=== PATIENT | male | born 1935 | race Hispanic/Latino ===

== ENCOUNTER 2016-12-15 10:44 | Inpatient (IN) | payer MEDICARE ==
[2016-12-15 10:45] VITALS: BMI 42.5
[2016-12-15] MEDS ORDERED: Nitroglycerin 50mg in D5W 0 MG/0 ML BOTTLE IV ONE (11:08)
[2016-12-15 11:24] LABS: BASO # 0.1 K/uL (0.0-0.2); BASO % 0.5 % (0.0-2.0); EOS # 0.2 K/uL (0.0-0.7); EOS % 1.3 % (0.0-4.0); HEMATOCRIT 36.6 % (35.0-51.0); LYMPH # 0.6 K/uL (1.0-4.3); LYMPH % 5.3 % (20.0-40.0); MEAN CORPUSCULAR HEMOGLOBIN 26.1 pg (27.0-31.0); MEAN CORPUSCULAR HGB CONC 30.8 g/dL (33.0-37.0); MEAN PLATELET VOLUME 7.5 fL (7.2-11.7); MONO # 0.7 K/uL (0.0-0.8); MONO % 6.1 % (0.0-10.0); PLATELET COUNT 217 K/uL (130-400); RED CELL DISTRIBUTION WIDTH 14.6 % (11.5-14.5); WHITE BLOOD COUNT 11.9 K/uL (4.8-10.8)
--- NOTE | 2016-12-15 11:24 | C.PDOC ---
History Of Present Illness Patient presents to ED c/o worsening SOB over the past 3-4 weeks. He denies chest pain, cough, fever, abdominal pain. He does admit to left leg cellulitis , currently on PO Augmentin. PMHx of COPD, CHF, CAD with stents, CKD. PMD Prateek Rauschjesus Piña Dejuan Time Seen by Provider: 12/15/16 10:58 Chief Complaint (Nursing): Shortness Of Breath History Per: Patient History/Exam Limitations: clinical condition Onset/Duration Of Symptoms: Days Current Symptoms Are (Timing): Still Present Past Medical History Reviewed: Historical Data, Nursing Documentation, Vital Signs Vital Signs: Last Vital Signs Temp 97.6 F 12/15/16 10:53 Pulse 70 12/15/16 14:56 Resp 18 12/15/16 14:56 BP 107/67 12/15/16 14:56 Pulse Ox 97 12/15/16 14:56 - Medical History PMH: Cardiac Aneurysm, CHF, COPD, HTN, Hypercholesterolemia, Peripheral Edema, Chronic Kidney Disease Surgical History: Coronary Stent (x2), Pacemaker - [facility] Procedures ASSISTANCE WITH RESPIRATORY VENTILATION, 24-96 HRS, CPAP (01/16/16) CATARAC PHACOEMULS/ASPIR (01/09/13) INSERT LENS AT CATAR EXT (01/09/13) Family History: States: Unknown Family Hx - Social History Hx Tobacco Use: Yes Hx Alcohol Use: No Hx Substance Use: No - Immunization History Hx Tetanus Toxoid Vaccination: No Hx Influenza Vaccination: No Hx Pneumococcal Vaccination: Yes Review Of Systems Review Of Systems: ROS cannot be obtained secondary to pt's inabilty to answer questions. Physical Exam - Physical Exam Appears: Non-toxic, In Acute Distress (in moderate respiratory distress), Other (speaking in full sentences) Skin: Normal Color, Warm, Dry Oral Mucosa: Moist Cardiovascular: Rhythm Regular Respiratory: Accessory Muscle Use (moderate), Rales (diffuse rales B/L), No Rhonchi, No Wheezing Gastrointestinal/Abdominal: Normal Exam, Bowel Sounds, Soft, No Tenderness, Other (obese) Extremity: Pedal Edema (+3 pitting edema B/L LEs), Other (left lower leg erythema and dressing ) ED Course And Treatment - Laboratory Results Result Diagrams: 12/15/16 11:15 12/15/16 11:15 ECG: Interpreted By Me, Viewed By Me (sinus ryhtm 95 bpm with first degree AV block, left axis deviation, nonspecific IV block, Qwaves II, III, aVF, V3-V6, no acute St changes) ECG Interpretation: Abnormal O2 Sat by Pulse Oximetry: 55 (RA) Pulse Ox Interpretation: Abnormal Progress Note: Patient placed on Bipap emergently. IV LAsix and SL nitro given. Blood work, EKG, CXR ordered and reviewed. 1:15pm- Spoke with meringuer Dr. Chaves, since patient is currently awake, alert, and significantly improved, he can go to telemetry floor. Patient is chronic retainer of CO2. 1:55pm- Patient aware & alert, Pox 100%, no accessory muscle us, siginificantly improved since arrival. Reevaluation Time: 12:15 Reassessment Condition: Improved (Patient reassessed, currently on BiPap, awake & alert and states he feels better. As per son at bedside, patient was in ICU last time due hypercarbia, however was not intubated (prior ABG reviewed- CO2 level 117) .) - Physician Consult Information Physician Contacted: Tiffanie Demarco Outcome Of Conversation: Admits for Dr. Shahbaz Navarro, aware of telemetry admission for CHF exacerbation, copd, dyspnea, hypercapnea. Dr. Zaidi is patient' s batch unloader, consutl entered. Disposition - Disposition Disposition: HOSPITALIZED Condition: SERIOUS Decision To Admit - Pt Status Changed To: Hospital Disposition Of: Inpatient - Admit Certification Admit to Inpatient:: After my assessment, the patient will require hospitalization for at least two midnights. This is because of the severity of symptoms shown, intensity of services needed, and/or the medical risk in this patient being treated as an outpatient. - InPatient: Physician Admission Certification: I certify that this patient requires 2 or more midnights of care for the following reason:: see notes - . Bed Request Type: Telemetry Admitting Physician: Tiffanie Demarco Patient Diagnosis: Acute exacerbation of CHF (congestive heart failure), COPD (chronic obstructive pulmonary disease), Dyspnea, Hypercapnia
[2016-12-15 11:26] LABS: MEAN CELL VOLUME 84.7 fL (80.0-94.0)
[2016-12-15 11:41] LABS: CHLORIDE 100 mmol/L (98-107); POTASSIUM 4.7 mmol/L (3.6-5.2); SODIUM 141 mmol/L (132-148)
[2016-12-15 11:43] LABS: AST/SGOT 25 U/L (17-59); BILIRUBIN,TOTAL 0.9 mg/dL (0.2-1.3); CARBON DIOXIDE 30 mmol/L (22-30); GFR AFRICAN-AMERICAN 47
[2016-12-15 11:44] LABS: ALB/GLOB RATIO 1.3 (1.0-2.1); ALKALINE PHOSPHATASE 90 U/L (38-126); ALT/SGPT 10 U/L (21-72); BLOOD UREA NITROGEN 31 mg/dL (9-20); CALCIUM 8.6 mg/dl (8.6-10.4); GLUCOSE,RANDOM 152 mg/dL (75-110)
--- NOTE | 2016-12-15 11:58 | RAD ---
HISTORY: SOB COMPARISON: Chest x-ray performed 01/20/16 TECHNIQUE: Chest, one view. FINDINGS: Examination limited by habitus and hypoinflation. Two lead left-sided pacemaker. LUNGS: Interstitial prominence may reflect infection or edema. Left basilar atelectasis. Please note that chest x-ray has limited sensitivity for the detection of pulmonary masses. PLEURA: Probable trace left pleural effusion. No definite pneumothorax . CARDIOVASCULAR: Borderline cardiomegaly. Atherosclerotic calcifications of the aorta. OSSEOUS STRUCTURES: Degenerative changes. VISUALIZED UPPER ABDOMEN: Unremarkable. OTHER FINDINGS: None. IMPRESSION: Borderline cardiomegaly. Atherosclerotic calcifications of the aorta. Dual lead left-sided pacemaker. Mild interstitial prominence may reflect infection or edema. Left basilar atelectasis. Probable trace left pleural effusion.
[2016-12-15 12:03] LABS: EOSINOPHIL 2 % (0-4); NEUTROPHIL 81 % (50-75); TOTAL CELLS COUNTED 100
[2016-12-15 12:19] LABS: RBC URINE 2 /hpf (0-3); URINE BILIRUBIN NEGATIVE (NEGATIVE); URINE BLOOD NEGATIVE (NEGATIVE); URINE COLOR Yellow (YELLOW); URINE GLUCOSE (UA) NORMAL (Normal); URINE KETONE NEGATIVE (NEGATIVE); URINE LEUKOCYTE ESTERASE NEG Leu/uL (Negative); URINE PROTEIN NEGATIVE (NEGATIVE); URINE UROBILINOGEN NORMAL mg/dL (0.2-1.0); WBC URINE 1 /hpf (0-5)
[2016-12-15 12:22] LABS: ABG ALLEN TEST POS; DRAW SITE LR
[2016-12-15] MEDS ORDERED: Albuterol-Ipratrop 3 mg / 0.5 (3 ml) UD INH STA (12:27)
[2016-12-15] MEDS ORDERED: Albuterol-Ipratrop 3 mg / 0.5 (3 ml) UD ONE (12:37)
[2016-12-15 15:51] LABS: ABG ALLEN TEST POS; ARTERIAL BLOOD HGB O2 SAT 94.3 % (95.0-98.0); CARBOXYHEMOGLOBIN 1.6 % (0.5-1.5); DRAW SITE RRADIAL; HHB 3.3 % (0.0-5.0); METHEMOGLOBIN 0.8 % (0.0-3.0)
--- NOTE | 2016-12-15 16:19 | CP.PCM.HP ---
History of Present Illness - History of Present Illness History of Present Illness: COMPREHENSIVE HISTORY & PHYSICAL EXAM HPI Last few days Pt. has been getting progressively SOB till on today Pt. was unable to breath at rest . Pt. was seen in ER in acute hypercapnia resp. failure . Pt. improved on BiPaP . ICU admission was declined . PAST HIST. CHF with n EF/ HTN/ Dual pacemaker/COPD/ chr. Edema of legs with cellulitis / CAD with 2 stents /renal insufficiency PERSONAL HIST: Smoking. N Alcohol. N Allergy N Travel_- . FAMILY HIST : ROS : Constitutional: Negative for weight change, chills POS SOB AND FATIDUE Eyes: Negative for redness, swelling, itching, discharge, vision changes, blurry vision, double vision, glaucoma, cataracts, Ears: Negative for hearing loss, ringing, , tinnitus, vertigo Nose: Negative for rhinorrhea, stuffiness, sniffing, itching, postnasal drip, discoloration, nasal congestion and epistaxis. Throat: Negative for throat clearing, sore throat, hoarseness, difficulty swallowing and difficulty speaking. RespiratoryPOS for cough, , sputum production, chest tightness, wheezing, pleuritic chest pain , daytime somnolence, chronic cough, NO hemoptysis, snoring at night, Cardiovascular: Negative for chest pain, palpitations, orthopnea, PND, Edema of legs, leg cramps, angina, claudication, , irregular heartbeat, Neurology: Negative for irritability, muscle weakness, numbness and tingling, seizures, tremors, migraines, slurred speech, syncope, memory loss, mood changes , recurrent headaches Gastrointestinal: Negative for difficulty swallowing, diarrhea, constipation, black stools, rectal bleeding, nausea, flatulence, reflux, poor appetite, changes in bowel habits, abdominal pain Genitourinary: Negative for frequent urination, hematuria, discharge, incontinence, urinary retention, frequent UTI, Psychiatric: Negative for depression, anxiety/panic, suicidal tendencies, Musculoskeletal: Negative for swollen joints, back pain, , neck pain, morning stiffness of joints, . Skin: INFLAMMATION OF LOWER EXT SKIN WITH EDEMA P/E: Constitutional: Appears stated age and SOB AT REST Head: Normocephalic. Ears: External ear canals patent without inflammation. Tympanic membranes intact with normal light reflex and landmark. Eyes: Pupils are central, bilaterally equal, symmetrical and reacts to light with normal movements and no icterus or pallor. Nose: External nares are patent. Mucosa is pink Mouth-Throat: Good general appearance and condition. No post-pharyngeal/oropharyngeal erythema and tonsillar hypertrophy. Good dental hygiene. Neck-Lymphatic: Neck is supple with normal ROM, no thyromegaly, lymph nodes or masses. JVD is normal with no carotid bruit. Lungs SILVIO POOR AIR ENTRY WITH RALES Cardiovascular: S1 and S2 are normal with no murmurs, gallops and rub. GI Exam: No hepatomegaly. Abdomen is soft and non-tender. No Organomegaly , masses or hernias are evident and bowel sounds are normal and active. Neurology: Higher function and all cranial nerves intact, with no gross motor or sensory deficit. Superficial and deep reflexes are normal with downwards planters. No cerebellar deficit with normal gait. Musculoskeletal: No tender spots with normal curvature of the spine with no swelling or restricted ROM of the small and large joints. Extremities: SILVIO CHR. EDEMA WITH SUP. DENUDATION OF SKIN WITH CELLULITIS Skin: No rash, eruptions or abnormal skin pigmentation LAB/RADIOLOGY: ASSESMENT : ACUTE HYPERCAPNIC RESP. FAILURE ON BIPAP HFnEF DIASTOLIC CAD/COPD/ CELLULITIS LEGS PLAN: SEE ORDERS Present on Admission - Present on Admission Any Indicators Present on Admission: No Past Patient History - Infectious Disease Hx of Infectious Diseases: None - Past Medical History & Family History Past Medical History?: Yes - Past Social History Smoking Status: Former Smoker - CARDIAC Hx Congestive Heart Failure: Yes Hx Hypercholesterolemia: Yes Hx Hypertension: Yes Hx Pacemaker: Yes Hx Peripheral Edema: Yes - PULMONARY Hx Chronic Obstructive Pulmonary Disease (COPD): Yes - RENAL Hx Chronic Kidney Disease: Yes - MUSCULOSKELETAL/RHEUMATOLOGICAL Hx Falls: Yes Hx Unsteady Gait: Yes - PSYCHIATRIC Hx Substance Use: No - SURGICAL HISTORY Hx Coronary Stent: Yes (x2) - ANESTHESIA Hx Anesthesia: Yes Hx Anesthesia Reactions: No Meds Allergies/Adverse Reactions: Allergies Allergy/AdvReac Type Severity Reaction Status Date / Time No Known Allergies Allergy Verified 12/15/16 11:14 Results - Vital Signs Recent Vital Signs: Last Vital Signs Temp 97.6 F 12/15/16 10:53 Pulse 70 12/15/16 14:56 Resp 18 12/15/16 14:56 BP 107/67 12/15/16 14:56 Pulse Ox 97 12/15/16 14:56 - Labs Result Diagrams: 12/16/16 08:50 12/16/16 08:50 Labs: Laboratory Results - last 24 hr 12/15/16 15:40 Puncture Site Rradial pCO2 84 H* pO2 92 HCO3 32.8 H ABG pH 7.28 L ABG Total CO2 42.1 H ABG O2 Saturation 96.6 ABG Base Excess 10.1 H ABG Hemoglobin 10.9 L ABG Carboxyhemoglobin 1.6 H POC ABG HHb (Measured) 3.3 ABG Methemoglobin 0.8 Froylan Test Pos A-a O2 Difference 516.0 Respiratory Index 5.6 Hgb O2 Saturation 94.3 L FiO2 100.0 Inspiratory BiPAP 16 Expiratory BiPAP 6 Crit Value Called To Dr. cecilia md/er Crit Value Called By Shiloh kat rcp Crit Value Read Back Y Blood Gas Notified Time 1550
[2016-12-15] MEDS: Albuterol-Ipratrop 3 mg / 0.5 (3 ml) UD INH SCH (19:37)
[2016-12-16] MEDS: Albuterol-Ipratrop 3 mg / 0.5 (3 ml) UD INH SCH ×4 (01:37→20:02)
[2016-12-16 09:11] LABS: LYMPH # 0.5 K/uL (1.0-4.3); LYMPH % 3.8 % (20.0-40.0); MEAN CORPUSCULAR HEMOGLOBIN 26.1 pg (27.0-31.0); MEAN CORPUSCULAR HGB CONC 31.5 g/dL (33.0-37.0); MEAN PLATELET VOLUME 7.5 fL (7.2-11.7); MONO # 0.5 K/uL (0.0-0.8); MONO % 3.5 % (0.0-10.0); NRBC % 0.1 % (0.0-2.0); PLATELET COUNT 235 K/uL (130-400); RED CELL DISTRIBUTION WIDTH 14.2 % (11.5-14.5); WHITE BLOOD COUNT 13.3 K/uL (4.8-10.8)
[2016-12-16 09:12] LABS: MEAN CELL VOLUME 82.7 fL (80.0-94.0)
[2016-12-16] MEDS: Pantoprazole 40 mg EC Tab PO SCH (09:19)
[2016-12-16 09:26] LABS: POTASSIUM 4.9 mmol/L (3.6-5.2)
[2016-12-16 09:28] LABS: BILIRUBIN,TOTAL 0.6 mg/dL (0.2-1.3)
[2016-12-16 09:29] LABS: ALB/GLOB RATIO 1.3 (1.0-2.1); CALCIUM 8.5 mg/dl (8.6-10.4); TOTAL PROTEIN 6.6 g/dL (6.3-8.3)
[2016-12-16 10:10] LABS: NEUTROPHIL 89 % (50-75); TOTAL CELLS COUNTED 100
--- NOTE | 2016-12-16 18:10 | CP.PCM.CON ---
History of Present Illness - History of Present Illness History of Present Illness: INFECTIOUS DISEASE CONSULT; HPI : 81-year-old male with history off COPD, CHF, hypertension, CAD with 2 stents, DUAL chamber pacemaker, admitted by the emergency room on 12/15/16 with progressive shortness of breath over the past 3-4 weeks and in acute hypercapnic respiratory failure, improved on BiPAP. ICU admission was declining patient transferred to the floor. Patient also has history of bilateral lower extremity edema with cellulitis and Unna boot on the left lower extremity placed as an outpatient by his client services analyst Dr. Morrell. Patient presently on nasal cannula oxygen with bilateral swelling of his lower extremities. Infectious disease consultation requested by PMD for evaluation off antibiotics for blood culture positive for gram-positive cocci in clusters and his lower extremity persistent cellulitis not resolving with outpatient by mouth Augmentin therapy given by his client services analyst. PMH: Cardiac Aneurysm, CHF, COPD, HTN, Hypercholesterolemia, Peripheral Edema, Chronic Kidney Disease Surgical History: Coronary Stent (x2), Pacemaker - [facility] Procedures ASSISTANCE WITH RESPIRATORY VENTILATION, 24-96 HRS, CPAP (01/16/16) CATARAC PHACOEMULS/ASPIR (01/09/13) INSERT LENS AT CATAR EXT (01/09/13) Family History: States: Unknown Family Hx - Social History Hx Tobacco Use: Yes Hx Alcohol Use: No Hx Substance Use: No - Immunization History Hx Tetanus Toxoid Vaccination: No Hx Influenza Vaccination: No Hx Pneumococcal Vaccination: Yes PMD Anthony Navarro Review of Systems - Constitutional Constitutional: absent: Chills, Fever - EENT Eyes: absent: Change in Vision, Floaters Nose/Mouth/Throat: Dry Mouth. absent: Post Nasal Drip - Cardiovascular Cardiovascular: Dyspnea on Exertion, Leg Edema, Leg Ulcers. absent: Chest Pain - Respiratory Respiratory: Dyspnea on Exertion. absent: Cough, Hemoptysis - Gastrointestinal Gastrointestinal: absent: Abdominal Pain, Constipation, Diarrhea, Nausea, Vomiting - Genitourinary Genitourinary: absent: Dysuria - Neurological Neurological: absent: Dizziness, Weakness - Hematologic/Lymphatic Hematologic: As Per HPI Past Patient History - Infectious Disease Hx of Infectious Diseases: None - Past Medical History & Family History Past Medical History?: Yes - Past Social History Smoking Status: Former Smoker - CARDIAC Hx Congestive Heart Failure: Yes Hx Hypercholesterolemia: Yes Hx Hypertension: Yes Hx Pacemaker: Yes Hx Peripheral Edema: Yes - PULMONARY Hx Chronic Obstructive Pulmonary Disease (COPD): Yes - RENAL Hx Chronic Kidney Disease: Yes - MUSCULOSKELETAL/RHEUMATOLOGICAL Hx Falls: Yes Hx Unsteady Gait: Yes - PSYCHIATRIC Hx Substance Use: No - SURGICAL HISTORY Hx Coronary Stent: Yes (x2) - ANESTHESIA Hx Anesthesia: Yes Hx Anesthesia Reactions: No Meds Allergies/Adverse Reactions: Allergies Allergy/AdvReac Type Severity Reaction Status Date / Time No Known Allergies Allergy Verified 12/15/16 11:14 - Medications Medications: Current Medications Albuterol/Ipratropium (Duoneb 3 Mg/0.5 Mg (3 Ml) Ud) 3 ml INH RQ6 [facility] Last Admin: 12/16/16 13:41 Dose: 3 ml Amlodipine Besylate (Norvasc) 5 mg PO DAILY [facility] Last Admin: 12/16/16 09:19 Dose: 5 mg Clopidogrel Bisulfate (Plavix) 75 mg PO DAILY [facility] Last Admin: 12/16/16 09:19 Dose: 75 mg Furosemide (Lasix) 40 mg IVP DAILY [facility] Last Admin: 12/16/16 09:19 Dose: 40 mg Heparin Sodium (Porcine) (Heparin) 5,000 units SC Q12 [facility] Methylprednisolone (Solu-Medrol) 60 mg IV Q6 [facility] Last Admin: 12/16/16 15:04 Dose: 60 mg Pantoprazole Sodium (Protonix Ec Tab) 40 mg PO DAILY [facility] Last Admin: 12/16/16 09:19 Dose: 40 mg Roflumilast (Daliresp) 500 mcg PO DAILY [facility] Last Admin: 12/16/16 09:53 Dose: 500 mcg Rosuvastatin Calcium (Crestor) 10 mg PO HS [facility] Last Admin: 12/15/16 21:46 Dose: 10 mg Tramadol HCl (Ultram) 50 mg PO TID PRN Last Admin: 12/16/16 15:14 Dose: 50 mg Results - Vital Signs Recent Vital Signs: Last Vital Signs Temp 98.0 F 12/16/16 15:20 Pulse 79 12/16/16 15:20 Resp 20 12/16/16 15:20 BP 122/61 12/16/16 15:20 Pulse Ox 93 L 12/16/16 15:20 - Labs Result Diagrams: 12/17/16 08:22 12/17/16 08:22 Labs: Laboratory Results - last 24 hr 12/15/16 12/16/16 12/16/16 17:52 00:34 08:50 WBC 13.3 H RBC 4.11 L Hgb 10.7 L Hct 34.0 L MCV 82.7 D MCH 26.1 L MCHC 31.5 L RDW 14.2 Plt Count 235 MPV 7.5 Neut % (Auto) 92.7 H Lymph % (Auto) 3.8 L Ashley % (Auto) 3.5 Eos % (Auto) 0.0 Baso % (Auto) 0.0 Neut # 12.4 H Lymph # 0.5 L Ashley # 0.5 Eos # 0.0 Baso # 0.0 Neutrophils % (Manual) 89 H Band Neutrophils % 2 Lymphocytes % (Manual) 6 L Monocytes % (Manual) 3 Toxic Granulation Present Platelet Estimate Normal Polychromasia Slight Hypochromasia (manual) Slight Poikilocytosis (manual Slight Anisocytosis (manual) Slight Ovalocytes Slight Sodium Potassium Chloride Carbon Dioxide Anion Gap BUN Creatinine Est GFR ( Amer) Est GFR (Non-Af Amer) Random Glucose Calcium Total Bilirubin AST ALT Alkaline Phosphatase Total Creatine Kinase 30 L 34 L CK-MB (Mass) 1.33 1.14 Troponin I, Quant < 0.0120 < 0.0120 Total Protein Albumin Globulin Albumin/Globulin Ratio 12/16/16 12/16/16 08:50 08:50 WBC RBC Hgb Hct MCV MCH MCHC RDW Plt Count MPV Neut % (Auto) Lymph % (Auto) Ashley % (Auto) Eos % (Auto) Baso % (Auto) Neut # Lymph # Ashley # Eos # Baso # Neutrophils % (Manual) Band Neutrophils % Lymphocytes % (Manual) Monocytes % (Manual) Toxic Granulation Platelet Estimate Polychromasia Hypochromasia (manual) Poikilocytosis (manual Anisocytosis (manual) Ovalocytes Sodium 141 Potassium 4.9 Chloride 96 L Carbon Dioxide 34 H Anion Gap 16 BUN 36 H Creatinine 1.7 H Est GFR ( Amer) 47 Est GFR (Non-Af Amer) 39 Random Glucose 146 H Calcium 8.5 L Total Bilirubin 0.6 AST 17 D ALT 21 D Alkaline Phosphatase 81 Total Creatine Kinase 36 L CK-MB (Mass) 1.22 Troponin I, Quant < 0.0120 Total Protein 6.6 Albumin 3.8 Globulin 2.8 Albumin/Globulin Ratio 1.3 - Imaging and Cardiology Chest x-ray Status: Report reviewed by me (12/15/16; left basilar atelectasis. Interstitial prominence and infection versus edema. Trace left pleural effusion. Dual-lead left-sided pacemaker.) Assessment & Plan (1) Gram-positive cocci in clusters Assessment and Plan: blood cultures 12/15/16 1;2 sets gram-positive cocci in clusters real vs contaminant. WBC 13.3 Creatinine 1.7/BUN 36 Plan ; Start Rocephin 2 g IV piggyback once a day daily 12/15/16 Follow-up cultures to adjust antibiotics. WILL HOLD OFF NEPHROTOXIC MEDS. Status: Acute (2) Bilateral cellulitis of lower leg Assessment and Plan: ON IV ABX LT LE HAS UNNA BOOT PER DR MORRELL. Status: Acute (3) Acute exacerbation of CHF (congestive heart failure) Status: Acute (4) COPD (chronic obstructive pulmonary disease) Status: Chronic (5) Hypercholesteremia Status: Acute (6) Hypertension Status: Chronic (7) CAD (coronary artery disease) Status: Acute
[2016-12-16] MEDS: cefTRIAXone 2 GM in Sodium Chloride 0.9% 100 ML IVPB SCH (21:17)
[2016-12-17] MEDS: Albuterol-Ipratrop 3 mg / 0.5 (3 ml) UD INH SCH ×4 (01:40→19:36)
[2016-12-17 08:40] LABS: BASO % 0.1 % (0.0-2.0); LYMPH # 0.3 K/uL (1.0-4.3); MEAN CELL VOLUME 82.3 fL (80.0-94.0); MEAN CORPUSCULAR HEMOGLOBIN 25.7 pg (27.0-31.0); MEAN CORPUSCULAR HGB CONC 31.3 g/dL (33.0-37.0); MEAN PLATELET VOLUME 7.7 fL (7.2-11.7); MONO # 0.2 K/uL (0.0-0.8); MONO % 1.3 % (0.0-10.0); PLATELET COUNT 242 K/uL (130-400); RED CELL DISTRIBUTION WIDTH 14.6 % (11.5-14.5); WHITE BLOOD COUNT 11.6 K/uL (4.8-10.8)
[2016-12-17 08:55] LABS: POTASSIUM 4.9 mmol/L (3.6-5.2)
[2016-12-17 08:57] LABS: ALB/GLOB RATIO 1.4 (1.0-2.1); BILIRUBIN,DIRECT 0.5 mg/dL (0.0-0.4); BILIRUBIN,TOTAL 0.6 mg/dL (0.2-1.3); TOTAL PROTEIN 6.4 g/dL (6.3-8.3)
[2016-12-17 08:58] LABS: CALCIUM 8.4 mg/dl (8.6-10.4)
[2016-12-17 09:19] LABS: NEUTROPHIL 94 % (50-75); TOTAL CELLS COUNTED 100
[2016-12-17 09:23] LABS: LARGE PLATELETS PRESENT
[2016-12-17] MEDS: Pantoprazole 40 mg EC Tab PO SCH (09:43)
[2016-12-17 09:47] LABS: ERYTHROCYTE SEDIMENTATION RATE 28 mm/hr (0-15)
--- NOTE | 2016-12-17 14:33 | CP.PCM.PN ---
Subjective - Date & Time of Evaluation Date of Evaluation: 12/17/16 Time of Evaluation: 14:29 - Subjective Subjective: CHIEF COMPLAINTS TODAY : LESS SOB/WHEEZING SWELLING LEGS ROS. HEENT : N. Resp : MILD cough, wheezing ,pleuritic CP , NO hemoptysis Cardio : No anginal CP, PND, orthopnea, palpitation GI : No abd.pain, n/v ,diarrhea or GI bleeding . LAY OUT AND DETAIL DRAFTER : No headache, vertigo, focal deficit. Musculoskel : No joint swelling , Derm : No rash Psych : Normal affect. Ext : POS SWELLING /INFLAMMATION PE. Pt. is alert awake in no distress. V.S As noted in the chart Head ,ear nose,throat and eyes : Normal. Neck : Supple with normal carotids. Lungs: POOR AIR ENTRY WITH SCATTERED RONCHI Heart : S1 & S2 normal with S4. No murmur. Abd : Soft non tender with normal bowel sounds. Neuro : Moves all ext. with no localized deficit. Ext : SILVIO EDEMA MODERATE WITH SUP SKIN EXCORIATION Derm : No rashes or decubitus ulcer. LABS/RADIOLOGY: [facility] NEG ASSESSMENT/PLAN : IV LASIX/AB BIPAP Objective - Vital Signs/Intake and Output Vital Signs (last 24 hours): Temp Pulse Resp BP Pulse Ox 98 F 74 20 126/71 95 12/17/16 07:00 12/17/16 07:00 12/17/16 07:00 12/17/16 09:43 12/17/16 07:00 Intake and Output: 12/17/16 12/17/16 11:59 23:59 Intake Total 240 Output Total 425 Balance -185 - Medications Medications: Current Medications Albuterol/Ipratropium (Duoneb 3 Mg/0.5 Mg (3 Ml) Ud) 3 ml INH RQ6 [facility] Last Admin: 12/17/16 14:02 Dose: 3 ml Amlodipine Besylate (Norvasc) 5 mg PO DAILY [facility] Last Admin: 12/17/16 09:42 Dose: 5 mg Clopidogrel Bisulfate (Plavix) 75 mg PO DAILY [facility] Last Admin: 12/17/16 09:43 Dose: 75 mg Furosemide (Lasix) 40 mg IVP DAILY [facility] Last Admin: 12/17/16 09:43 Dose: 40 mg Heparin Sodium (Porcine) (Heparin) 5,000 units SC Q12 [facility] Last Admin: 12/17/16 09:45 Dose: 5,000 units Ceftriaxone Sodium 2 gm/ (Sodium Chloride) 100 mls @ 100 mls/hr IVPB Q24H [facility] Last Admin: 12/16/16 21:17 Dose: 100 mls/hr Methylprednisolone (Solu-Medrol) 60 mg IV Q6 [facility] Last Admin: 12/17/16 06:14 Dose: 60 mg Pantoprazole Sodium (Protonix Ec Tab) 40 mg PO DAILY [facility] Last Admin: 12/17/16 09:43 Dose: 40 mg Roflumilast (Daliresp) 500 mcg PO DAILY [facility] Last Admin: 12/17/16 09:45 Dose: 500 mcg Rosuvastatin Calcium (Crestor) 10 mg PO HS [facility] Last Admin: 12/16/16 21:16 Dose: 10 mg Tramadol HCl (Ultram) 50 mg PO TID PRN Last Admin: 12/17/16 09:39 Dose: 50 mg - Labs Labs: 12/17/16 08:22 12/17/16 08:22 PT 11.8 SECONDS (9.7-12.2) 12/15/16 11:15 INR 1.0 12/15/16 11:15 APTT 32 SECONDS (21-34) 12/15/16 11:15
--- NOTE | 2016-12-17 16:56 | CP.PCM.PN ---
Subjective - Date & Time of Evaluation Date of Evaluation: 12/17/16 Time of Evaluation: 16:56 - Subjective Subjective: CHIEF COMPLAINTS TODAY less SOB BILATERAL SWELLING LE LT LE +VE UNNA BOOT ROS. HEENT : N. Resp : MILD cough, wheezing ,pleuritic CP , NO hemoptysis Cardio : No anginal CP, PND, orthopnea, palpitation GI : No abd.pain, n/v ,diarrhea or GI bleeding . AIRCRAFT SYSTEMS TECHNICIAN : No headache, vertigo, focal deficit. Musculoskel : No joint swelling , Derm : No rash Psych : Normal affect. Ext : POS SWELLING /INFLAMMATION PE. Pt. is alert awake in no distress. V.S As noted in the chart Head ,ear nose,throat and eyes : Normal. Neck : Supple with normal carotids. Lungs: POOR AIR ENTRY WITH SCATTERED RONCHI Heart : S1 & S2 normal with S4. No murmur. Abd : Soft non tender with normal bowel sounds. Neuro : Moves all ext. with no localized deficit. Ext : SILVIO EDEMA LE WITH SUP SKIN EXCORIATION AND CELLULITUS Derm : No rashes or decubitus ulcer. LABS/RADIOLOGY: 12/15/16 BLOOD CULTURE +VE SCN/GNR WBC 11.6 Objective - Vital Signs/Intake and Output Vital Signs (last 24 hours): Temp Pulse Resp BP Pulse Ox 98 F 74 20 126/71 95 12/17/16 07:00 12/17/16 07:00 12/17/16 07:00 12/17/16 09:43 12/17/16 07:00 Intake and Output: 12/17/16 12/17/16 06:59 18:59 Intake Total 540 Output Total 925 Balance -385 - Medications Medications: Current Medications Albuterol/Ipratropium (Duoneb 3 Mg/0.5 Mg (3 Ml) Ud) 3 ml INH RQ6 [facility] Last Admin: 12/17/16 14:02 Dose: 3 ml Amlodipine Besylate (Norvasc) 5 mg PO DAILY [facility] Last Admin: 12/17/16 09:42 Dose: 5 mg Clopidogrel Bisulfate (Plavix) 75 mg PO DAILY [facility] Last Admin: 12/17/16 09:43 Dose: 75 mg Furosemide (Lasix) 40 mg IVP DAILY [facility] Last Admin: 12/17/16 09:43 Dose: 40 mg Heparin Sodium (Porcine) (Heparin) 5,000 units SC Q12 [facility] Last Admin: 12/17/16 09:45 Dose: 5,000 units Ceftriaxone Sodium 2 gm/ (Sodium Chloride) 100 mls @ 100 mls/hr IVPB Q24H [facility] Last Admin: 12/16/16 21:17 Dose: 100 mls/hr Methylprednisolone (Solu-Medrol) 60 mg IV Q6 [facility] Last Admin: 12/17/16 06:14 Dose: 60 mg Pantoprazole Sodium (Protonix Ec Tab) 40 mg PO DAILY [facility] Last Admin: 12/17/16 09:43 Dose: 40 mg Roflumilast (Daliresp) 500 mcg PO DAILY [facility] Last Admin: 12/17/16 09:45 Dose: 500 mcg Rosuvastatin Calcium (Crestor) 10 mg PO HS [facility] Last Admin: 12/16/16 21:16 Dose: 10 mg Tramadol HCl (Ultram) 50 mg PO TID PRN Last Admin: 12/17/16 09:39 Dose: 50 mg - Labs Labs: 12/17/16 08:22 12/17/16 08:22 PT 11.8 SECONDS (9.7-12.2) 12/15/16 11:15 INR 1.0 12/15/16 11:15 APTT 32 SECONDS (21-34) 12/15/16 11:15 Assessment and Plan (1) Gram-positive cocci in clusters Assessment & Plan: blood cultures 12/15/16 1;2 sets gram-positive cocci in clusters /GNR real vs contaminant. WBC IMPROVING Creatinine 1.7/BUN 36 Plan ; ON Rocephin 2 g IV piggyback once a day daily 12/15/16 Follow-up cultures to adjust antibiotics. Status: Acute (2) Bilateral cellulitis of lower leg Assessment & Plan: ON IV ABX LT LE HAS UNNA BOOT PER DR [place]. Status: Acute (3) Acute exacerbation of CHF (congestive heart failure) Status: Acute (4) COPD (chronic obstructive pulmonary disease) Status: Chronic (5) Hypercholesteremia Status: Acute (6) Hypertension Status: Chronic (7) CAD (coronary artery disease) Status: Acute
[2016-12-17] MEDS: cefTRIAXone 2 GM in Sodium Chloride 0.9% 100 ML IVPB SCH (19:01)
[2016-12-18] MEDS: Albuterol-Ipratrop 3 mg / 0.5 (3 ml) UD INH SCH ×4 (01:45→19:32)
[2016-12-18 06:32] LABS: HEMATOCRIT 36.1 % (35.0-51.0); LYMPH # 0.4 K/uL (1.0-4.3); LYMPH % 2.9 % (20.0-40.0); MEAN CELL VOLUME 82.2 fL (80.0-94.0); MEAN CORPUSCULAR HEMOGLOBIN 25.5 pg (27.0-31.0); MEAN CORPUSCULAR HGB CONC 31.1 g/dL (33.0-37.0); MEAN PLATELET VOLUME 7.7 fL (7.2-11.7); MONO # 0.3 K/uL (0.0-0.8); MONO % 2.6 % (0.0-10.0); NRBC % 0.1 % (0.0-2.0); PLATELET COUNT 277 K/uL (130-400); WHITE BLOOD COUNT 12.3 K/uL (4.8-10.8)
[2016-12-18 06:57] LABS: POTASSIUM 4.7 mmol/L (3.6-5.2)
[2016-12-18 07:00] LABS: ALB/GLOB RATIO 1.3 (1.0-2.1); BILIRUBIN,TOTAL 0.4 mg/dL (0.2-1.3); TOTAL PROTEIN 6.6 g/dL (6.3-8.3)
[2016-12-18 07:01] LABS: CALCIUM 8.3 mg/dl (8.6-10.4)
[2016-12-18 09:18] LABS: NEUTROPHIL 95 % (50-75); TOTAL CELLS COUNTED 100
[2016-12-18] MEDS: Pantoprazole 40 mg EC Tab PO SCH (09:43)
--- NOTE | 2016-12-18 12:48 | CP.PCM.PN ---
Subjective - Date & Time of Evaluation Date of Evaluation: 12/18/16 Time of Evaluation: 12:48 - Subjective Subjective: CHIEF COMPLAINTS TODAY : LESS SOB/WHEEZING SWELLING LEGS BUN RISING ROS. HEENT : N. Resp : MILD cough, wheezing ,pleuritic CP , NO hemoptysis Cardio : No anginal CP, PND, orthopnea, palpitation GI : No abd.pain, n/v ,diarrhea or GI bleeding . 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 Musculoskel : No joint swelling , Derm : No rash Psych : Normal affect. Ext : POS SWELLING /INFLAMMATION PE. Pt. is alert awake in no distress. V.S As noted in the chart Head ,ear nose,throat and eyes : Normal. Neck : Supple with normal carotids. Lungs: POOR AIR ENTRY WITH SCATTERED RONCHI Heart : S1 & S2 normal with S4. No murmur. Abd : Soft non tender with normal bowel sounds. Neuro : Moves all ext. with no localized deficit. Ext : SILVIO EDEMA MODERATE WITH SUP SKIN EXCORIATION Derm : No rashes or decubitus ulcer. LABS/RADIOLOGY: [facility] A[facility] NEG ASSESSMENT/PLAN : IV LASIX REDUCE DOSE BIPAP Objective - Vital Signs/Intake and Output Vital Signs (last 24 hours): Temp Pulse Resp BP Pulse Ox 98.1 F 73 20 157/87 H 93 L 12/18/16 07:37 12/18/16 07:37 12/18/16 07:37 12/18/16 09:43 12/18/16 07:37 Intake and Output: 12/18/16 12/18/16 11:59 23:59 Intake Total 360 Output Total 650 Balance -290 - Medications Medications: Current Medications Albuterol/Ipratropium (Duoneb 3 Mg/0.5 Mg (3 Ml) Ud) 3 ml INH RQ6 [facility] Last Admin: 12/18/16 10:23 Dose: 3 ml Amlodipine Besylate (Norvasc) 5 mg PO DAILY [facility] Last Admin: 12/18/16 09:44 Dose: 5 mg Clopidogrel Bisulfate (Plavix) 75 mg PO DAILY [facility] Last Admin: 12/18/16 09:44 Dose: 75 mg Furosemide (Lasix) 40 mg IVP DAILY [facility] Last Admin: 12/18/16 09:43 Dose: 40 mg Heparin Sodium (Porcine) (Heparin) 5,000 units SC Q12 [facility] Last Admin: 12/18/16 09:43 Dose: 5,000 units Ceftriaxone Sodium 2 gm/ (Sodium Chloride) 100 mls @ 100 mls/hr IVPB Q24H [facility] Last Admin: 12/17/16 19:01 Dose: 100 mls/hr Methylprednisolone (Solu-Medrol) 60 mg IV Q6 [facility] Last Admin: 12/18/16 05:29 Dose: 60 mg Pantoprazole Sodium (Protonix Ec Tab) 40 mg PO DAILY [facility] Last Admin: 12/18/16 09:43 Dose: 40 mg Roflumilast (Daliresp) 500 mcg PO DAILY [facility] Last Admin: 12/18/16 09:44 Dose: 500 mcg Rosuvastatin Calcium (Crestor) 10 mg PO HS [facility] Last Admin: 12/17/16 21:47 Dose: 10 mg Tramadol HCl (Ultram) 50 mg PO TID PRN Last Admin: 12/17/16 09:39 Dose: 50 mg - Labs Labs: 12/18/16 06:19 12/18/16 06:19 PT 11.8 SECONDS (9.7-12.2) 12/15/16 11:15 INR 1.0 12/15/16 11:15 APTT 32 SECONDS (21-34) 12/15/16 11:15
--- NOTE | 2016-12-18 12:53 | CP.PCM.CON ---
History of Present Illness - History of Present Illness History of Present Illness: 81 year old pt seen at bedside for wound left ankle chronic in nature .Patient was insructed 3 weeks ago to go to hospital for treatment however he declined .His condition worsened and he developed a variety of symptoms and was convinced by son and myself to seek care at hospital on Sunday . Review of Systems - Cardiovascular Cardiovascular: Edema, Leg Edema, Pedal Edema - Respiratory Respiratory: Snoring - Gastrointestinal Gastrointestinal: As Per HPI - Integumentary Integumentary: Change in Nails, Change in Pigmentation, Skin Ulcer, Swelling, Wounds - Neurological Neurological: Paresthesias, Radicular Pain Past Patient History - Infectious Disease Hx of Infectious Diseases: None - Past Medical History & Family History Past Medical History?: Yes - Past Social History Smoking Status: Former Smoker - CARDIAC Hx Congestive Heart Failure: Yes Hx Hypercholesterolemia: Yes Hx Hypertension: Yes Hx Pacemaker: Yes Hx Peripheral Edema: Yes - PULMONARY Hx Chronic Obstructive Pulmonary Disease (COPD): Yes - RENAL Hx Chronic Kidney Disease: Yes - MUSCULOSKELETAL/RHEUMATOLOGICAL Hx Falls: Yes Hx Unsteady Gait: Yes - PSYCHIATRIC Hx Substance Use: No - SURGICAL HISTORY Hx Coronary Stent: Yes (x2) - ANESTHESIA Hx Anesthesia: Yes Hx Anesthesia Reactions: No Meds Allergies/Adverse Reactions: Allergies Allergy/AdvReac Type Severity Reaction Status Date / Time No Known Allergies Allergy Verified 12/15/16 11:14 - Medications Medications: Current Medications Albuterol/Ipratropium (Duoneb 3 Mg/0.5 Mg (3 Ml) Ud) 3 ml INH RQ6 [facility] Last Admin: 12/18/16 10:23 Dose: 3 ml Amlodipine Besylate (Norvasc) 5 mg PO DAILY [facility] Last Admin: 12/18/16 09:44 Dose: 5 mg Clopidogrel Bisulfate (Plavix) 75 mg PO DAILY [facility] Last Admin: 12/18/16 09:44 Dose: 75 mg Furosemide (Lasix) 40 mg IVP DAILY [facility] Last Admin: 12/18/16 09:43 Dose: 40 mg Heparin Sodium (Porcine) (Heparin) 5,000 units SC Q12 [facility] Last Admin: 12/18/16 09:43 Dose: 5,000 units Ceftriaxone Sodium 2 gm/ (Sodium Chloride) 100 mls @ 100 mls/hr IVPB Q24H [facility] Last Admin: 12/17/16 19:01 Dose: 100 mls/hr Methylprednisolone (Solu-Medrol) 60 mg IV Q6 [facility] Last Admin: 12/18/16 05:29 Dose: 60 mg Pantoprazole Sodium (Protonix Ec Tab) 40 mg PO DAILY [facility] Last Admin: 12/18/16 09:43 Dose: 40 mg Roflumilast (Daliresp) 500 mcg PO DAILY [facility] Last Admin: 12/18/16 09:44 Dose: 500 mcg Rosuvastatin Calcium (Crestor) 10 mg PO HS [facility] Last Admin: 12/17/16 21:47 Dose: 10 mg Tramadol HCl (Ultram) 50 mg PO TID PRN Last Admin: 12/17/16 09:39 Dose: 50 mg Physical Exam - Extremities Exam Additional comments: O/Venous ulcer left ankle improved with control of CHF .Cellulitis improved. Vascular status grossly intact b/l . Neuro intact grossly . 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 Serous drainage from wound left ankle . Results - Vital Signs Recent Vital Signs: Last Vital Signs Temp 98.1 F 12/18/16 07:37 Pulse 73 12/18/16 07:37 Resp 20 12/18/16 07:37 BP 157/87 H 12/18/16 09:43 Pulse Ox 93 L 12/18/16 07:37 - Labs Result Diagrams: 12/18/16 06:19 12/18/16 06:19 Labs: Laboratory Results - last 24 hr 12/18/16 12/18/16 06:19 06:19 WBC 12.3 H RBC 4.39 L Hgb 11.2 L Hct 36.1 MCV 82.2 MCH 25.5 L MCHC 31.1 L RDW 15.0 H Plt Count 277 MPV 7.7 Neut % (Auto) 94.5 H Lymph % (Auto) 2.9 L Woodruff % (Auto) 2.6 Eos % (Auto) 0.0 Baso % (Auto) 0.0 Neut # 11.7 H Lymph # 0.4 L Woodruff # 0.3 Eos # 0.0 Baso # 0.0 Neutrophils % (Manual) 95 H Lymphocytes % (Manual) 2 L Monocytes % (Manual) 3 Platelet Estimate Normal Hypochromasia (manual) Slight Poikilocytosis (manual Slight Anisocytosis (manual) Slight Sodium 136 Potassium 4.7 Chloride 92 L Carbon Dioxide 34 H Anion Gap 15 BUN 55 H Creatinine 1.7 H Est GFR ( Amer) 47 Est GFR (Non-Af Amer) 39 Random Glucose 174 H Calcium 8.3 L Total Bilirubin 0.4 AST 26 ALT 22 Alkaline Phosphatase 70 Total Protein 6.6 Albumin 3.7 Globulin 2.9 Albumin/Globulin Ratio 1.3 Assessment & Plan - Assessment and Plan (Free Text) Assessment: A/Venous Ulcer left ankle /Cellulitis left ankle Plan: P/C&S of wound taken . Apply Xeroform gauze dsd left ankle . Antibiotics as per and medical management .
--- NOTE | 2016-12-18 13:17 | CP.PCM.PN ---
Subjective - Date & Time of Evaluation Date of Evaluation: 12/18/16 Time of Evaluation: 13:17 - Subjective Subjective: CHIEF COMPLAINTS TODAY less SOB BILATERAL SWELLING LE LT LE +VE UNNA BOOT SEEN BY DR. SWEENEY AND APPRECIATED ROS. HEENT : N. Resp : MILD cough, wheezing ,pleuritic CP , NO hemoptysis Cardio : No anginal CP, PND, orthopnea, palpitation GI : No abd.pain, n/v ,diarrhea or GI bleeding . 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 Musculoskel : No joint swelling , Derm : No rash Psych : Normal affect. Ext : POS SWELLING /INFLAMMATION PE. Pt. is alert awake in no distress. V.S As noted in the chart Head ,ear nose,throat and eyes : Normal. Neck : Supple with normal carotids. Lungs: POOR AIR ENTRY WITH SCATTERED RONCHI Heart : S1 & S2 normal with S4. No murmur. Abd : Soft non tender with normal bowel sounds. Neuro : Moves all ext. with no localized deficit. Ext : SILVIO EDEMA LE WITH SUP SKIN EXCORIATION AND CELLULITUS Derm : No rashes or decubitus ulcer. LABS/RADIOLOGY: 12/15/16 BLOOD CULTURE +VE SCN/GNR 12/16/16 BLOOD CULTURE -VE 24HRS WBC 12.3 CREAT 1.7/BUN 55 INCREASING. GFR 39 LOW Objective - Vital Signs/Intake and Output Vital Signs (last 24 hours): Temp Pulse Resp BP Pulse Ox 98.1 F 73 20 157/87 H 93 L 12/18/16 07:37 12/18/16 07:37 12/18/16 07:37 12/18/16 09:43 12/18/16 07:37 Intake and Output: 12/18/16 12/18/16 06:59 18:59 Intake Total 710 Output Total 1250 Balance -540 - Medications Medications: Current Medications Albuterol/Ipratropium (Duoneb 3 Mg/0.5 Mg (3 Ml) Ud) 3 ml INH RQ6 [facility] Last Admin: 12/18/16 10:23 Dose: 3 ml Amlodipine Besylate (Norvasc) 5 mg PO DAILY [facility] Last Admin: 12/18/16 09:44 Dose: 5 mg Clopidogrel Bisulfate (Plavix) 75 mg PO DAILY [facility] Last Admin: 12/18/16 09:44 Dose: 75 mg Furosemide (Lasix) 20 mg IVP DAILY [facility] Heparin Sodium (Porcine) (Heparin) 5,000 units SC Q12 [facility] Last Admin: 12/18/16 09:43 Dose: 5,000 units Ceftriaxone Sodium 2 gm/ (Sodium Chloride) 100 mls @ 100 mls/hr IVPB Q24H [facility] Last Admin: 12/17/16 19:01 Dose: 100 mls/hr Methylprednisolone (Solu-Medrol) 60 mg IV Q6 [facility] Last Admin: 12/18/16 12:57 Dose: 60 mg Pantoprazole Sodium (Protonix Ec Tab) 40 mg PO DAILY [facility] Last Admin: 12/18/16 09:43 Dose: 40 mg Roflumilast (Daliresp) 500 mcg PO DAILY [facility] Last Admin: 12/18/16 09:44 Dose: 500 mcg Rosuvastatin Calcium (Crestor) 10 mg PO HS [facility] Last Admin: 12/17/16 21:47 Dose: 10 mg Tramadol HCl (Ultram) 50 mg PO TID PRN Last Admin: 12/17/16 09:39 Dose: 50 mg - Labs Labs: 12/18/16 06:19 12/18/16 06:19 PT 11.8 SECONDS (9.7-12.2) 12/15/16 11:15 INR 1.0 12/15/16 11:15 APTT 32 SECONDS (21-34) 12/15/16 11:15 Assessment and Plan (1) Gram-positive cocci in clusters Assessment & Plan: blood cultures 12/15/16 1;2 sets gram-positive cocci in clusters /GNR BLOOD CULTURES REPEAT 12/16/16 NEGATIVE GROWTH TO DATE. cASE DISCUSSED WITH MICROBIOLOGY. bLOOD CULTURE WITH GRAM-NEGATIVE RODS STILL PENDING IDENTIFICATION. WBC INCREASED TODAY Creatinine 1.7/BUN 55 INCREASING Plan ; ON Rocephin 2 g IV piggyback once a day daily 12/15/16 Follow-up cultures to adjust antibiotics. CASE DISCUSSED WITH SOPHIA HERNANDES. Status: Acute (2) Bilateral cellulitis of lower leg Status: Acute (3) Acute exacerbation of CHF (congestive heart failure) Status: Acute (4) COPD (chronic obstructive pulmonary disease) Status: Chronic (5) Hypercholesteremia Status: Acute (6) Hypertension Status: Chronic (7) CAD (coronary artery disease) Status: Acute
[2016-12-18] MEDS: cefTRIAXone 2 GM in Sodium Chloride 0.9% 100 ML IVPB SCH (18:50)
[2016-12-19] MEDS: Albuterol-Ipratrop 3 mg / 0.5 (3 ml) UD INH SCH ×4 (02:44→19:48)
[2016-12-19 08:09] LABS: BASO % 0.1 % (0.0-2.0); HEMATOCRIT 37.8 % (35.0-51.0); LYMPH # 0.3 K/uL (1.0-4.3); MEAN CELL VOLUME 81.3 fL (80.0-94.0); MEAN CORPUSCULAR HEMOGLOBIN 25.7 pg (27.0-31.0); MEAN CORPUSCULAR HGB CONC 31.6 g/dL (33.0-37.0); MEAN PLATELET VOLUME 7.6 fL (7.2-11.7); MONO # 0.4 K/uL (0.0-0.8); MONO % 4.1 % (0.0-10.0); NRBC % 0.1 % (0.0-2.0); PLATELET COUNT 276 K/uL (130-400); RED CELL DISTRIBUTION WIDTH 14.6 % (11.5-14.5); WHITE BLOOD COUNT 10.3 K/uL (4.8-10.8)
[2016-12-19 08:19] LABS: POTASSIUM 4.2 mmol/L (3.6-5.2)
[2016-12-19 08:21] LABS: ALB/GLOB RATIO 1.4 (1.0-2.1); BILIRUBIN,TOTAL 0.6 mg/dL (0.2-1.3); TOTAL PROTEIN 6.6 g/dL (6.3-8.3)
[2016-12-19 08:22] LABS: CALCIUM 8.5 mg/dl (8.6-10.4)
[2016-12-19 09:40] LABS: NEUTROPHIL 90 % (50-75); TOTAL CELLS COUNTED 100
[2016-12-19] MEDS: Pantoprazole 40 mg EC Tab PO SCH (10:07)
--- NOTE | 2016-12-19 12:49 | CP.PCM.PN ---
Subjective - Date & Time of Evaluation Date of Evaluation: 12/19/16 Time of Evaluation: 12:49 - Subjective Subjective: CHIEF COMPLAINTS TODAY less SOB BILATERAL SWELLING LE LT LE +VE UNNA BOOT BLOOD CULTURE 12/15 +VE E.COLI / SCN S -CTX. ROS. HEENT : N. Resp : MILD cough, wheezing ,pleuritic CP , NO hemoptysis Cardio : No anginal CP, PND, orthopnea, palpitation GI : No abd.pain, n/v ,diarrhea or GI bleeding . COILER : No headache, vertigo, focal deficit. Musculoskel : No joint swelling , Derm : No rash Psych : Normal affect. Ext : POS SWELLING /INFLAMMATION PE. Pt. is alert awake in no distress. V.S As noted in the chart Head ,ear nose,throat and eyes : Normal. Neck : Supple with normal carotids. Lungs: POOR AIR ENTRY WITH SCATTERED RONCHI Heart : S1 & S2 normal with S4. No murmur. Abd : Soft non tender with normal bowel sounds. Neuro : Moves all ext. with no localized deficit. Ext : SILVIO EDEMA LE WITH SUP SKIN EXCORIATION AND CELLULITUS Derm : No rashes or decubitus ulcer. LABS/RADIOLOGY: 12/15/16 BLOOD CULTURE +VE SCN/GNR 12/16/16 BLOOD CULTURE -VE 24HRS WBC 12.3-->10.3 CREAT 1.6 /BUN 60 GFR 39 LOW Objective - Vital Signs/Intake and Output Vital Signs (last 24 hours): Temp Pulse Resp BP Pulse Ox 98.2 F 64 18 158/72 H 95 12/19/16 08:13 12/19/16 08:13 12/19/16 08:13 12/19/16 10:07 12/19/16 08:13 Intake and Output: 12/19/16 12/19/16 06:59 18:59 Intake Total 300 Output Total 1100 Balance -800 - Medications Medications: Current Medications Albuterol/Ipratropium (Duoneb 3 Mg/0.5 Mg (3 Ml) Ud) 3 ml INH RQ6 [facility] Last Admin: 12/19/16 07:36 Dose: 3 ml Amlodipine Besylate (Norvasc) 5 mg PO DAILY [facility] Last Admin: 12/19/16 10:07 Dose: 5 mg Clopidogrel Bisulfate (Plavix) 75 mg PO DAILY [facility] Last Admin: 12/19/16 10:07 Dose: 75 mg Furosemide (Lasix) 20 mg IVP DAILY [facility] Last Admin: 12/19/16 10:07 Dose: 20 mg Heparin Sodium (Porcine) (Heparin) 5,000 units SC Q12 [facility] Last Admin: 12/19/16 10:06 Dose: 5,000 units Ceftriaxone Sodium 2 gm/ (Sodium Chloride) 100 mls @ 100 mls/hr IVPB Q24H [facility] Last Admin: 12/18/16 18:50 Dose: 100 mls/hr Methylprednisolone (Solu-Medrol) 60 mg IV Q6 [facility] Last Admin: 12/19/16 05:49 Dose: 60 mg Pantoprazole Sodium (Protonix Ec Tab) 40 mg PO DAILY [facility] Last Admin: 12/19/16 10:07 Dose: 40 mg Roflumilast (Daliresp) 500 mcg PO DAILY [facility] Last Admin: 12/19/16 10:08 Dose: 500 mcg Rosuvastatin Calcium (Crestor) 10 mg PO HS [facility] Last Admin: 12/18/16 23:02 Dose: 10 mg Tramadol HCl (Ultram) 50 mg PO TID PRN Last Admin: 12/17/16 09:39 Dose: 50 mg - Labs Labs: 12/19/16 07:53 12/19/16 07:53 PT 11.8 SECONDS (9.7-12.2) 12/15/16 11:15 INR 1.0 12/15/16 11:15 APTT 32 SECONDS (21-34) 12/15/16 11:15 Assessment and Plan (1) Gram-positive cocci in clusters Assessment & Plan: BLOOD CULTURE 12/15 +vE E.COLI / SCN REPEAT BLOOD CULTURES 12/16/16 -VE TO DATE . CASE DISCUSSED WITH RN. PT WILL NEED PICC LINE. CONTINUE IV ROCEPHIN 2GM IVPB OD DAILY X 2WKS TOTAL . F/U RENAL FUNCTION /LFTS /CBC WEEKLY AT [facility] PER DR SWEENEY. ON Rocephin 2 g IV piggyback once a day daily 12/15/16 Status: Acute (2) Bilateral cellulitis of lower leg Status: Acute (3) Acute exacerbation of CHF (congestive heart failure) Status: Acute (4) COPD (chronic obstructive pulmonary disease) Status: Chronic (5) Hypercholesteremia Status: Acute (6) Hypertension Status: Chronic (7) CAD (coronary artery disease) Status: Acute
--- NOTE | 2016-12-19 13:19 | CP.PCM.PN ---
Subjective - Date & Time of Evaluation Date of Evaluation: 12/19/16 Time of Evaluation: 13:18 - Subjective Subjective: CHIEF COMPLAINTS TODAY : LESS SOB/WHEEZING SWELLING LEGS BUN RISING ROS. HEENT : N. Resp : MILD cough, wheezing ,pleuritic CP , NO hemoptysis Cardio : No anginal CP, PND, orthopnea, palpitation GI : No abd.pain, n/v ,diarrhea or GI bleeding . 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 Musculoskel : No joint swelling , Derm : No rash Psych : Normal affect. Ext : POS SWELLING /INFLAMMATION PE. Pt. is alert awake in no distress. V.S As noted in the chart Head ,ear nose,throat and eyes : Normal. Neck : Supple with normal carotids. Lungs: POOR AIR ENTRY WITH SCATTERED RONCHI Heart : S1 & S2 normal with S4. No murmur. Abd : Soft non tender with normal bowel sounds. Neuro : Moves all ext. with no localized deficit. Ext : SILVIO EDEMA MODERATE WITH SUP SKIN EXCORIATION Derm : No rashes or decubitus ulcer. LABS/RADIOLOGY: STAPH AURE[facility] NEG AND E. COLI IN BLOOD ASSESSMENT/PLAN : IV LASIX REDUCE DOSE BIPAP MELANI FOR IV AB Objective - Vital Signs/Intake and Output Vital Signs (last 24 hours): Temp Pulse Resp BP Pulse Ox 98.2 F 64 18 158/72 H 95 12/19/16 08:13 12/19/16 08:13 12/19/16 08:13 12/19/16 10:07 12/19/16 08:13 Intake and Output: 12/19/16 12/19/16 11:59 23:59 Output Total 650 Balance -650 - Medications Medications: Current Medications Albuterol/Ipratropium (Duoneb 3 Mg/0.5 Mg (3 Ml) Ud) 3 ml INH RQ6 [facility] Last Admin: 12/19/16 07:36 Dose: 3 ml Amlodipine Besylate (Norvasc) 5 mg PO DAILY [facility] Last Admin: 12/19/16 10:07 Dose: 5 mg Clopidogrel Bisulfate (Plavix) 75 mg PO DAILY [facility] Last Admin: 12/19/16 10:07 Dose: 75 mg Furosemide (Lasix) 20 mg IVP DAILY [facility] Last Admin: 12/19/16 10:07 Dose: 20 mg Heparin Sodium (Porcine) (Heparin) 5,000 units SC Q12 [facility] Last Admin: 12/19/16 10:06 Dose: 5,000 units Ceftriaxone Sodium 2 gm/ (Sodium Chloride) 100 mls @ 100 mls/hr IVPB Q24H [facility] Last Admin: 12/18/16 18:50 Dose: 100 mls/hr Methylprednisolone (Solu-Medrol) 60 mg IV Q6 [facility] Last Admin: 12/19/16 05:49 Dose: 60 mg Pantoprazole Sodium (Protonix Ec Tab) 40 mg PO DAILY [facility] Last Admin: 12/19/16 10:07 Dose: 40 mg Roflumilast (Daliresp) 500 mcg PO DAILY [facility] Last Admin: 12/19/16 10:08 Dose: 500 mcg Rosuvastatin Calcium (Crestor) 10 mg PO HS [facility] Last Admin: 12/18/16 23:02 Dose: 10 mg Tramadol HCl (Ultram) 50 mg PO TID PRN Last Admin: 12/17/16 09:39 Dose: 50 mg - Labs Labs: 12/19/16 07:53 12/19/16 07:53 PT 11.8 SECONDS (9.7-12.2) 12/15/16 11:15 INR 1.0 12/15/16 11:15 APTT 32 SECONDS (21-34) 12/15/16 11:15
[2016-12-19 17:05] VITALS: RESP 20
[2016-12-19] MEDS: cefTRIAXone 2 GM in Sodium Chloride 0.9% 100 ML IVPB SCH (19:00)
[2016-12-20] MEDS: Albuterol-Ipratrop 3 mg / 0.5 (3 ml) UD INH SCH ×3 (02:43→13:28)
[2016-12-20 07:03] LABS: BASO % 0.1 % (0.0-2.0); HEMATOCRIT 37.1 % (35.0-51.0); LYMPH # 0.2 K/uL (1.0-4.3); MEAN CELL VOLUME 81.7 fL (80.0-94.0); MEAN CORPUSCULAR HEMOGLOBIN 25.5 pg (27.0-31.0); MEAN CORPUSCULAR HGB CONC 31.2 g/dL (33.0-37.0); MEAN PLATELET VOLUME 7.4 fL (7.2-11.7); MONO # 0.3 K/uL (0.0-0.8); MONO % 2.7 % (0.0-10.0); PLATELET COUNT 258 K/uL (130-400); RED CELL DISTRIBUTION WIDTH 15.2 % (11.5-14.5); WHITE BLOOD COUNT 11.2 K/uL (4.8-10.8)
[2016-12-20 07:28] LABS: POTASSIUM 4.5 mmol/L (3.6-5.2)
[2016-12-20 07:30] LABS: BILIRUBIN,TOTAL 0.6 mg/dL (0.2-1.3); TOTAL PROTEIN 6.1 g/dL (6.3-8.3)
[2016-12-20 07:31] LABS: CALCIUM 8.2 mg/dl (8.6-10.4)
[2016-12-20 08:09] LABS: ALB/GLOB RATIO 1.3 (1.0-2.1)
[2016-12-20 09:01] VITALS: O2SAT 95
[2016-12-20 09:06] LABS: NEUTROPHIL 96 % (50-75); TOTAL CELLS COUNTED 100
[2016-12-20] MEDS: Pantoprazole 40 mg EC Tab PO SCH (09:37)
--- NOTE | 2016-12-20 11:55 | RAD ---
PROCEDURE: CHEST RADIOGRAPH, 1 VIEW HISTORY: verify right PICC COMPARISON: 12/15/2016 FINDINGS: LUNGS: Stable appearance of the lung kapadia with bibasilar volume loss and mild interstitial change. Mild subsegmental atelectasis is also seen in the left mid lung field. PLEURA: No pneumothorax. Possible small pleural effusion on the left. CARDIOVASCULAR: Mild vascular congestion, possibly chronic. Heart and aorta are unchanged. Left pacemaker is unchanged. OSSEOUS STRUCTURES: No significant abnormalities. VISUALIZED UPPER ABDOMEN: Normal. OTHER FINDINGS: There is a new right PICC line identified with its tip in the superior vena cava. IMPRESSION: New right PICC line with its tip in the superior vena cava. Bilateral lower lobe subsegmental atelectasis. Possible small left effusion. Mild congestion.
--- NOTE | 2016-12-20 12:49 | CP.PCM.PN ---
Subjective - Date & Time of Evaluation Date of Evaluation: 12/20/16 Time of Evaluation: 12:46 - Subjective Subjective: 81 year old pt seen at bedside for wound left ankle chronic in nature. Denies pain to LE at this time. Denies F/C/N/V. States that he just had a PICC line placed and will be discharged to a rehab facility most likely tomorrow. Objective - Vital Signs/Intake and Output Vital Signs (last 24 hours): Temp Pulse Resp BP Pulse Ox 97.9 F 79 20 158/79 H 95 12/20/16 09:00 12/20/16 09:00 12/20/16 09:00 12/20/16 09:37 12/20/16 09:00 Intake and Output: 12/20/16 12/20/16 06:59 18:59 Intake Total 550 Output Total 1150 Balance -600 - Medications Medications: Current Medications Albuterol/Ipratropium (Duoneb 3 Mg/0.5 Mg (3 Ml) Ud) 3 ml INH RQ6 [facility] Last Admin: 12/20/16 07:31 Dose: 3 ml Amlodipine Besylate (Norvasc) 5 mg PO DAILY [facility] Last Admin: 12/20/16 09:38 Dose: 5 mg Clopidogrel Bisulfate (Plavix) 75 mg PO DAILY [facility] Last Admin: 12/20/16 09:37 Dose: 75 mg Furosemide (Lasix) 20 mg IVP DAILY [facility] Last Admin: 12/20/16 09:37 Dose: 20 mg Ceftriaxone Sodium 2 gm/ (Sodium Chloride) 100 mls @ 100 mls/hr IVPB Q24H [facility] Last Admin: 12/19/16 19:00 Dose: 100 mls/hr Methylprednisolone (Solu-Medrol) 60 mg IV Q6 [facility] Last Admin: 12/20/16 05:26 Dose: 60 mg Pantoprazole Sodium (Protonix Ec Tab) 40 mg PO DAILY [facility] Last Admin: 12/20/16 09:37 Dose: 40 mg Roflumilast (Daliresp) 500 mcg PO DAILY [facility] Last Admin: 12/20/16 09:38 Dose: 500 mcg Rosuvastatin Calcium (Crestor) 10 mg PO HS [facility] Last Admin: 12/19/16 21:40 Dose: 10 mg Tramadol HCl (Ultram) 50 mg PO TID PRN Last Admin: 12/20/16 05:25 Dose: 50 mg - Labs Labs: 12/20/16 06:56 12/20/16 06:56 PT 11.8 SECONDS (9.7-12.2) 12/15/16 11:15 INR 1.0 12/15/16 11:15 APTT 32 SECONDS (21-34) 12/15/16 11:15 - Constitutional Appears: Non-toxic, No Acute Distress - Extremities Exam Additional comments: LE exam: dressings clean, dry and intact. Assessment and Plan - Assessment and Plan (Free Text) Assessment: 81 y/o male with LLE chronic venous stasis ulceration. Plan: evaluated with all questions addressed and answered. discussed with Dr. Morrell. patient stable from podiatry standpoint. will follow up with Dr. Morrell as an outpt for continued wound care. will continue to follow while in hospital.
--- NOTE | 2016-12-20 13:26 | CP.PCM.PN ---
Subjective - Date & Time of Evaluation Date of Evaluation: 12/20/16 Time of Evaluation: 13:23 - Subjective Subjective: CHIEF COMPLAINTS TODAY FEELING BETTER BILATERAL SWELLING LE LESS LT LE +VE UNNA BOOT BLOOD CULTURE 12/15 +VE E.COLI / SCN S -CTX. ROS. HEENT : N. Resp : MILD cough, wheezing ,pleuritic CP , NO hemoptysis Cardio : No anginal CP, PND, orthopnea, palpitation GI : No abd.pain, n/v ,diarrhea or GI bleeding . 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 Musculoskel : No joint swelling , Derm : No rash Psych : Normal affect. Ext : POS SWELLING /INFLAMMATION PE. Pt. is alert awake in no distress. V.S As noted in the chart Head ,ear nose,throat and eyes : Normal. Neck : Supple with normal carotids. Lungs: POOR AIR ENTRY WITH SCATTERED RONCHI Heart : S1 & S2 normal with S4. No murmur. Abd : Soft non tender with normal bowel sounds. Neuro : Moves all ext. with no localized deficit. Ext : SILVIO EDEMA LE WITH SUP SKIN EXCORIATION AND CELLULITUS Derm : No rashes or decubitus ulcer. LABS/RADIOLOGY: 12/15/16 BLOOD CULTURE +VE E. COLI /SCN 12/16/16 BLOOD CULTURE -VE 24HRS 12/20/16 WBC 11.2 H/H 11.6 PLT 258. CREAT 1.5/ BUN 58 IMPROVING LFTS -OK 12/20/16 Objective - Vital Signs/Intake and Output Vital Signs (last 24 hours): Temp Pulse Resp BP Pulse Ox 97.9 F 79 20 158/79 H 95 12/20/16 09:00 12/20/16 09:00 12/20/16 09:00 12/20/16 09:37 12/20/16 09:00 Intake and Output: 12/20/16 12/20/16 06:59 18:59 Intake Total 550 Output Total 1150 Balance -600 - Medications Medications: Current Medications Albuterol/Ipratropium (Duoneb 3 Mg/0.5 Mg (3 Ml) Ud) 3 ml INH RQ6 [facility] Last Admin: 12/20/16 07:31 Dose: 3 ml Amlodipine Besylate (Norvasc) 5 mg PO DAILY [facility] Last Admin: 12/20/16 09:38 Dose: 5 mg Clopidogrel Bisulfate (Plavix) 75 mg PO DAILY [facility] Last Admin: 12/20/16 09:37 Dose: 75 mg Furosemide (Lasix) 20 mg IVP DAILY [facility] Last Admin: 12/20/16 09:37 Dose: 20 mg Ceftriaxone Sodium 2 gm/ (Sodium Chloride) 100 mls @ 100 mls/hr IVPB Q24H [facility] Last Admin: 12/19/16 19:00 Dose: 100 mls/hr Methylprednisolone (Solu-Medrol) 60 mg IV Q6 [facility] Last Admin: 12/20/16 05:26 Dose: 60 mg Pantoprazole Sodium (Protonix Ec Tab) 40 mg PO DAILY [facility] Last Admin: 12/20/16 09:37 Dose: 40 mg Roflumilast (Daliresp) 500 mcg PO DAILY [facility] Last Admin: 12/20/16 09:38 Dose: 500 mcg Rosuvastatin Calcium (Crestor) 10 mg PO HS [facility] Last Admin: 12/19/16 21:40 Dose: 10 mg Tramadol HCl (Ultram) 50 mg PO TID PRN Last Admin: 12/20/16 05:25 Dose: 50 mg - Labs Labs: 12/20/16 06:56 12/20/16 06:56 PT 11.8 SECONDS (9.7-12.2) 12/15/16 11:15 INR 1.0 12/15/16 11:15 APTT 32 SECONDS (21-34) 12/15/16 11:15 Assessment and Plan (1) Gram-positive cocci in clusters Status: Acute (2) Bilateral cellulitis of lower leg Status: Acute (3) Acute exacerbation of CHF (congestive heart failure) Status: Acute (4) COPD (chronic obstructive pulmonary disease) Status: Chronic (5) Hypercholesteremia Status: Acute (6) Hypertension Status: Chronic (7) CAD (coronary artery disease) Status: Acute - Assessment and Plan (Free Text) Plan: IMPRESSION; -SEPSIS -GRAM NEGATIVE BACTEREMIA (E. COLI ) SOURCE MOST PROBABLE SOFT TISSUE SKIN INFECTION. -B/L CELLULITIS AND INFECTED ULCER LEFT LOWER EXTREMITY - S/P ACUTE RESPIRATORY INSUFFICIENCY. -EXACERBATION OF COPD. -CHF -CAD -HYPERCHOLESTEROLEMIA. PLAN. CONTINUE iv ROCEPHIN 2 G iv PIGGYBACK ONCE A DAY DAILY X 2WKS. MONITOR RENAL FUNCTIONS,LFTS , CBC WEEKLY STARTING SUNDAY. LOCAL WOUND CARE PER PODIATRY DR. SWEENEY. PT DIRECTED BY PMD. PATIENT FOR SUBACUTE REHABILITATION [facility] . CASE DISCUSSED WITH THE STAFF/GLOBAL CONSUMER SECTOR VICE PRESIDENT MS ZHANG.
--- NOTE | 2016-12-20 13:40 | CP.PCM.PN ---
Subjective - Date & Time of Evaluation Date of Evaluation: 12/20/16 Time of Evaluation: 13:40 - Subjective Subjective: CHIEF COMPLAINTS TODAY : LESS SOB/WHEEZING SWELLING LEGS BUN TRENDING DOWN ROS. HEENT : N. Resp : MILD cough, wheezing ,pleuritic CP , NO hemoptysis Cardio : No anginal CP, PND, orthopnea, palpitation GI : No abd.pain, n/v ,diarrhea or GI bleeding . INFORMATION RECEPTIONIST : No headache, vertigo, focal deficit. Musculoskel : No joint swelling , Derm : No rash Psych : Normal affect. Ext : POS SWELLING /INFLAMMATION PE. Pt. is alert awake in no distress. V.S As noted in the chart Head ,ear nose,throat and eyes : Normal. Neck : Supple with normal carotids. Lungs: POOR AIR ENTRY WITH SCATTERED RONCHI Heart : S1 & S2 normal with S4. No murmur. Abd : Soft non tender with normal bowel sounds. Neuro : Moves all ext. with no localized deficit. Ext : SILVIO EDEMA MODERATE WITH SUP SKIN EXCORIATION Derm : No rashes or decubitus ulcer. LABS/RADIOLOGY: STAPH AUREUS NEG AND E. COLI IN BLOOD ASSESSMENT/PLAN : IV LASIX REDUCE DOSE BIPAP MELANI FOR IV AB Objective - Vital Signs/Intake and Output Vital Signs (last 24 hours): Temp Pulse Resp BP Pulse Ox 97.9 F 79 20 158/79 H 95 12/20/16 09:00 12/20/16 09:00 12/20/16 09:00 12/20/16 09:37 12/20/16 09:00 Intake and Output: 12/20/16 12/20/16 11:59 23:59 Output Total 600 Balance -600 - Medications Medications: Current Medications Albuterol/Ipratropium (Duoneb 3 Mg/0.5 Mg (3 Ml) Ud) 3 ml INH RQ6 [facility] Last Admin: 12/20/16 13:28 Dose: 3 ml Amlodipine Besylate (Norvasc) 5 mg PO DAILY [facility] Last Admin: 12/20/16 09:38 Dose: 5 mg Clopidogrel Bisulfate (Plavix) 75 mg PO DAILY [facility] Last Admin: 12/20/16 09:37 Dose: 75 mg Furosemide (Lasix) 20 mg IVP DAILY [facility] Last Admin: 12/20/16 09:37 Dose: 20 mg Ceftriaxone Sodium 2 gm/ (Sodium Chloride) 100 mls @ 100 mls/hr IVPB Q24H [facility] Last Admin: 12/19/16 19:00 Dose: 100 mls/hr Methylprednisolone (Solu-Medrol) 60 mg IV Q6 [facility] Last Admin: 12/20/16 05:26 Dose: 60 mg Pantoprazole Sodium (Protonix Ec Tab) 40 mg PO DAILY [facility] Last Admin: 12/20/16 09:37 Dose: 40 mg Roflumilast (Daliresp) 500 mcg PO DAILY [facility] Last Admin: 12/20/16 09:38 Dose: 500 mcg Rosuvastatin Calcium (Crestor) 10 mg PO HS [facility] Last Admin: 12/19/16 21:40 Dose: 10 mg Tramadol HCl (Ultram) 50 mg PO TID PRN Last Admin: 12/20/16 05:25 Dose: 50 mg - Labs Labs: 12/20/16 06:56 12/20/16 06:56 PT 11.8 SECONDS (9.7-12.2) 12/15/16 11:15 INR 1.0 12/15/16 11:15 APTT 32 SECONDS (21-34) 12/15/16 11:15
--- NOTE | 2016-12-20 15:07 | CP.PCM.PN ---
Subjective - Date & Time of Evaluation Date of Evaluation: 12/20/16 Time of Evaluation: 14:30 - Subjective Subjective: RECREATION PROFESSOR NOTES Pt seen today states feels better, sob abd congestion improved, edema to the B/ L LE improved no overnight events recorded on monitor a febrile s/p picc line today RUE Objective - Vital Signs/Intake and Output Vital Signs (last 24 hours): Temp Pulse Resp BP Pulse Ox 97.9 F 79 20 158/79 H 95 12/20/16 09:00 12/20/16 09:00 12/20/16 09:00 12/20/16 09:37 12/20/16 09:00 Intake and Output: 12/20/16 12/20/16 06:59 18:59 Intake Total 550 Output Total 1150 Balance -600 - Medications Medications: Current Medications Albuterol/Ipratropium (Duoneb 3 Mg/0.5 Mg (3 Ml) Ud) 3 ml INH RQ6 [facility] Last Admin: 12/20/16 13:28 Dose: 3 ml Amlodipine Besylate (Norvasc) 5 mg PO DAILY [facility] Last Admin: 12/20/16 09:38 Dose: 5 mg Clopidogrel Bisulfate (Plavix) 75 mg PO DAILY [facility] Last Admin: 12/20/16 09:37 Dose: 75 mg Furosemide (Lasix) 20 mg IVP DAILY [facility] Last Admin: 12/20/16 09:37 Dose: 20 mg Ceftriaxone Sodium 2 gm/ (Sodium Chloride) 100 mls @ 100 mls/hr IVPB Q24H [facility] Last Admin: 12/19/16 19:00 Dose: 100 mls/hr Methylprednisolone (Solu-Medrol) 60 mg IV Q6 [facility] Last Admin: 12/20/16 13:00 Dose: 60 mg Pantoprazole Sodium (Protonix Ec Tab) 40 mg PO DAILY [facility] Last Admin: 12/20/16 09:37 Dose: 40 mg Roflumilast (Daliresp) 500 mcg PO DAILY [facility] Last Admin: 12/20/16 09:38 Dose: 500 mcg Rosuvastatin Calcium (Crestor) 10 mg PO HS [facility] Last Admin: 12/19/16 21:40 Dose: 10 mg Tramadol HCl (Ultram) 50 mg PO TID PRN Last Admin: 12/20/16 05:25 Dose: 50 mg - Labs Labs: 12/20/16 06:56 12/20/16 06:56 PT 11.8 SECONDS (9.7-12.2) 12/15/16 11:15 INR 1.0 12/15/16 11:15 APTT 32 SECONDS (21-34) 12/15/16 11:15 Assessment and Plan - Assessment and Plan (Free Text) Assessment: A/P 81 yr old male admitted for sob/hypercapnea /CHF Pt clinically improved with BIPAP and steroids bun/ cr- improved - blood culture-+ - E coli and staph coag repeat blood culture- negative for 3 day s urine culture - negative s/p picc line today f/c discontinued and pt voids D/W Dr. Demarco , stable for discharge to [facility] today and Dr. Demarco will follow the patient at [facility] D/W Dr. Ashli torres cleared for discharge today from ID standpoint and continue rocephin 2 gm IVBP daily x 2 weeks and cbc, bmp, LFT q sunday discharge plan discussed with patient and son at bedside , who understands and agrees with plan.
--- NOTE | 2016-12-20 15:32 | PCM.HF ---
Heart Failure Core Measure - Heart Failure Ejection Fraction: 40 % or Greater MERLENE Inhibitor Prescribed: No Contraindication/Reason for not providing: renal insufficiency Beta-Latrice Prescribed: None Contraindication/Reason for not providing: copd Angiotensin II Receptor Latrice Prescribed: No Contraindication/Reason for not providing: ef>60/ renal insufficiency AnticoagulationTherapy for Atrial Fibrillation/Atrialflutter: No Contraindication/Reason for not providing: no hx of a fib Contraindication/Reason for not providing: ef>60 Hydralazine Nitrate Prescribed: No Contraindication/Reason for not providing: ef?50 / on norvasc Implantable Cardioverter Defibrillator Therapy: Yes Cardiac Resynchronization Therapy Prescribed: No Contraindication/Reason for not providing: pt has pacemaker - Follow up Will be discharged to: Home ([facility]) Follow Up Date (must be within 7 days from discharge): 12/22/16 Follow Up Time: 09:00
--- NOTE | 2016-12-20 16:31 | VASCLAB ---
PROCEDURE: Lower Extremity Venous Duplex Exam. HISTORY: bilateral LE swelling PRIORS: None. TECHNIQUE: Bilateral common femoral, femoral, popliteal and posterior tibial, peroneal and great saphenous veins were evaluated. Flow was assessed with color Doppler, compressibility, assessment of phasic flow and augmentation response. Report prepared by Steven Rascon, FE, RVT FINDINGS: RIGHT: 1. Common Femoral Vein: 1.1. Compressibility - Fully compressible: Thrombus - None : Flow - Phasic: Augmentation -Normal: Reflux - None. 2. Femoral Vein: 2.1. Compressibility - Fully compressible: Thrombus - None : Flow - Phasic: Augmentation -Normal: Reflux - None. 3. Popliteal Vein: 3.1. Compressibility - Fully compressible: Thrombus - None : Flow - Phasic: Augmentation -Normal: Reflux - None. 4. Posterior Tibial Vein: 4.1. Compressibility - Fully compressible: Thrombus - None: Flow - Phasic: Augmentation -Normal: Reflux - None. 5. Peroneal Vein: 5.1. Compressibility - Fully compressible: Thrombus - None: Flow - Phasic: Augmentation -Normal: Reflux - None. 6. Great Saphenous Vein: 6.1. Compressibility - Fully compressible: Thrombus - None: Flow - Phasic: Augmentation - Normal: Reflux - None. LEFT: 1. Common Femoral Vein: 1.1. Compressibility - Fully compressible: Thrombus - None: Flow - Phasic: Augmentation -Normal: Reflux - None. 2. Femoral Vein: 2.1. Compressibility - Fully compressible: Thrombus - None: Flow - Phasic: Augmentation -Normal: Reflux - None. 3. Popliteal Vein: 3.1. Compressibility - Fully compressible: Thrombus - None : Flow - Phasic: Augmentation -Normal: Reflux - Severe. 4. Posterior Tibial Vein: 4.1. Compressibility - Fully compressible: Thrombus - None: Flow - Phasic: Augmentation -Normal: Reflux - None. 5. Peroneal Vein: 5.1. Compressibility - Fully compressible: Thrombus - None: Flow - Phasic: Augmentation -Normal: Reflux - None. 6. Great Saphenous Vein: 6.1. Compressibility - Fully compressible: Thrombus - None: Flow - Phasic: Augmentation - Normal: Reflux - None. OTHER FINDINGS: Right: None significant. Left: Severe valvular incompetence of the left greater saphenous vein. IMPRESSION: Right: No evidence of deep or superficial vein thrombosis of the right lower extremity. Normal valve function noted of the right side. Left: No evidence of deep or superficial vein thrombosis of the left lower extremity.
[2016-12-20 17:10] VITALS: BP 144/70; PULSE 72; TEMP 97.5
--- NOTE | 2016-12-20 17:47 | CP.PCM.PN ---
Subjective - Date & Time of Evaluation Date of Evaluation: 12/20/16 Time of Evaluation: 16:00 Objective - Vital Signs/Intake and Output Vital Signs (last 24 hours): Temp Pulse Resp BP Pulse Ox 97.5 F L 72 20 144/70 95 12/20/16 15:40 12/20/16 15:40 12/20/16 15:40 12/20/16 15:40 12/20/16 09:00 Intake and Output: 12/20/16 12/20/16 06:59 18:59 Intake Total 550 500 Output Total 1150 700 Balance -600 -200 - Medications Medications: Current Medications Albuterol/Ipratropium (Duoneb 3 Mg/0.5 Mg (3 Ml) Ud) 3 ml INH RQ6 [facility] Last Admin: 12/20/16 13:28 Dose: 3 ml Amlodipine Besylate (Norvasc) 5 mg PO DAILY [facility] Last Admin: 12/20/16 09:38 Dose: 5 mg Clopidogrel Bisulfate (Plavix) 75 mg PO DAILY [facility] Last Admin: 12/20/16 09:37 Dose: 75 mg Furosemide (Lasix) 20 mg IVP DAILY [facility] Last Admin: 12/20/16 09:37 Dose: 20 mg Ceftriaxone Sodium 2 gm/ (Sodium Chloride) 100 mls @ 100 mls/hr IVPB Q24H [facility] Last Admin: 12/19/16 19:00 Dose: 100 mls/hr Methylprednisolone (Solu-Medrol) 60 mg IV Q6 [facility] Last Admin: 12/20/16 13:00 Dose: 60 mg Pantoprazole Sodium (Protonix Ec Tab) 40 mg PO DAILY [facility] Last Admin: 12/20/16 09:37 Dose: 40 mg Roflumilast (Daliresp) 500 mcg PO DAILY [facility] Last Admin: 12/20/16 09:38 Dose: 500 mcg Rosuvastatin Calcium (Crestor) 10 mg PO HS [facility] Last Admin: 12/19/16 21:40 Dose: 10 mg Tramadol HCl (Ultram) 50 mg PO TID PRN Last Admin: 12/20/16 05:25 Dose: 50 mg - Labs Labs: 12/20/16 06:56 12/20/16 06:56 PT 11.8 SECONDS (9.7-12.2) 12/15/16 11:15 INR 1.0 12/15/16 11:15 APTT 32 SECONDS (21-34) 12/15/16 11:15 Assessment and Plan (1) Gram-positive cocci in clusters Status: Acute (2) Bilateral cellulitis of lower leg Status: Acute (3) Acute exacerbation of CHF (congestive heart failure) Status: Acute (4) COPD (chronic obstructive pulmonary disease) Status: Chronic (5) Hypercholesteremia Status: Acute (6) Hypertension Status: Chronic (7) CAD (coronary artery disease) Status: Acute
--- NOTE | 2016-12-21 13:18 | CP.PCM.DIS ---
Provider - Provider Date of Admission: 12/15/16 13:57 Attending physician: Tiffanie Demarco MD Time Spent in preparation of Discharge (in minutes): 30 Hospital Course - Lab Results Lab Results: Micro Results 12/16/16 18:31 Blood-Venous Blood Culture - Preliminary NO GROWTH AFTER 4 DAYS 12/16/16 23:00 Blood-Venous Blood Culture - Preliminary NO GROWTH AFTER 4 DAYS Most Recent Lab Values WBC 11.2 K/uL (4.8-10.8) H 12/20/16 06:56 RBC 4.55 Mil/uL (4.40-5.90) 12/20/16 06:56 Hgb 11.6 g/dL (12.0-18.0) L 12/20/16 06:56 Hct 37.1 % (35.0-51.0) 12/20/16 06:56 MCV 81.7 fL (80.0-94.0) 12/20/16 06:56 MCH 25.5 pg (27.0-31.0) L 12/20/16 06:56 MCHC 31.2 g/dL (33.0-37.0) L 12/20/16 06:56 RDW 15.2 % (11.5-14.5) H 12/20/16 06:56 Plt Count 258 K/uL (130-400) 12/20/16 06:56 MPV 7.4 fL (7.2-11.7) 12/20/16 06:56 Neut % (Auto) 95.2 % (50.0-75.0) H 12/20/16 06:56 Lymph % (Auto) 2.0 % (20.0-40.0) L 12/20/16 06:56 Teller % (Auto) 2.7 % (0.0-10.0) 12/20/16 06:56 Eos % (Auto) 0.0 % (0.0-4.0) 12/20/16 06:56 Baso % (Auto) 0.1 % (0.0-2.0) 12/20/16 06:56 Neut # 10.6 K/uL (1.8-7.0) H 12/20/16 06:56 Lymph # 0.2 K/uL (1.0-4.3) L 12/20/16 06:56 Teller # 0.3 K/uL (0.0-0.8) 12/20/16 06:56 Eos # 0.0 K/uL (0.0-0.7) 12/20/16 06:56 Baso # 0.0 K/uL (0.0-0.2) 12/20/16 06:56 Neutrophils % (Manual) 96 % (50-75) H 12/20/16 06:56 Band Neutrophils % 1 % (0-2) 12/17/16 08:22 Lymphocytes % (Manual) 2 % (20-40) L 12/20/16 06:56 Monocytes % (Manual) 2 % (0-10) 12/20/16 06:56 Eosinophils % (Manual) 2 % (0-4) 12/15/16 11:15 Toxic Granulation Present 12/17/16 08:22 Platelet Estimate Normal (NORMAL) 12/20/16 06:56 Large Platelets Present 12/17/16 08:22 RBC Morphology Normal 12/15/16 11:15 Polychromasia Slight 12/17/16 08:22 Hypochromasia (manual) Slight 12/20/16 06:56 Poikilocytosis (manual Slight 12/20/16 06:56 Anisocytosis (manual) Slight 12/20/16 06:56 Ovalocytes Slight 12/17/16 08:22 [place] Cells Slight 12/17/16 08:22 Schistocytes Slight 12/17/16 08:22 ESR 28 mm/hr (0-15) H 12/17/16 08:22 PT 11.8 SECONDS (9.7-12.2) 12/15/16 11:15 INR 1.0 12/15/16 11:15 APTT 32 SECONDS (21-34) 12/15/16 11:15 Puncture Site Rradial 12/15/16 15:40 pCO2 84 mm/Hg (35-45) H* 12/15/16 15:40 pO2 92 mm/Hg (80-100) 12/15/16 15:40 HCO3 32.8 mmol/L (21-28) H 12/15/16 15:40 ABG pH 7.28 (7.35-7.45) L 12/15/16 15:40 ABG Total CO2 42.1 mmol/L (22-28) H 12/15/16 15:40 ABG O2 Saturation 96.6 % (95-98) 12/15/16 15:40 ABG Base Excess 10.1 mmol/L (-2.0-3.0) H 12/15/16 15:40 ABG Hemoglobin 10.9 g/dL (11.7-17.4) L 12/15/16 15:40 ABG Carboxyhemoglobin 1.6 % (0.5-1.5) H 12/15/16 15:40 POC ABG HHb (Measured) 3.3 % (0.0-5.0) 12/15/16 15:40 ABG Methemoglobin 0.8 % (0.0-3.0) 12/15/16 15:40 Froylan Test Pos 12/15/16 15:40 ABG Potassium 4.2 mmol/L (3.6-5.2) 12/15/16 11:59 A-a O2 Difference 516.0 mm/Hg 12/15/16 15:40 Respiratory Index 5.6 12/15/16 15:40 Hgb O2 Saturation 94.3 % (95.0-98.0) L 12/15/16 15:40 Sodium 142.0 mmol/l (132-148) 12/15/16 11:59 Chloride 107.0 mmol/L (98-107) 12/15/16 11:59 Lactate 0.6 mmol/L (0.7-2.1) L 12/15/16 11:59 FiO2 100.0 % 12/15/16 15:40 Inspiratory BiPAP 16 12/15/16 15:40 Expiratory BiPAP 6 12/15/16 15:40 Crit Value Called To Dr. cecilia md/er 12/15/16 15:40 Crit Value Called By Shiloh kat rcp 12/15/16 15:40 Crit Value Read Back Y 12/15/16 15:40 Blood Gas Notified Time 1550 12/15/16 15:40 Sodium 140 mmol/L (132-148) 12/20/16 06:56 Potassium 4.5 mmol/L (3.6-5.2) 12/20/16 06:56 Chloride 99 mmol/L (98-107) 12/20/16 06:56 Carbon Dioxide 31 mmol/L (22-30) H 12/20/16 06:56 Anion Gap 15 (10-20) 12/20/16 06:56 BUN 58 mg/dL (9-20) H 12/20/16 06:56 Creatinine 1.5 MG/DL (0.8-1.5) 12/20/16 06:56 Est GFR ( Amer) 54 12/20/16 06:56 Est GFR (Non-Af Amer) 45 12/20/16 06:56 Random Glucose 154 mg/dL (75-110) H 12/20/16 06:56 Calcium 8.2 mg/dl (8.6-10.4) L 12/20/16 06:56 Total Bilirubin 0.6 mg/dL (0.2-1.3) 12/20/16 06:56 Direct Bilirubin 0.5 mg/dL (0.0-0.4) H 12/17/16 08:22 AST 27 U/L (17-59) 12/20/16 06:56 ALT 25 U/L (21-72) 12/20/16 06:56 Alkaline Phosphatase 51 U/L (38-126) 12/20/16 06:56 Total Creatine Kinase 36 U/L (55-170) L 12/16/16 08:50 CK-MB (Mass) 1.22 ng/mL (0.0-3.38) 12/16/16 08:50 Troponin I < 0.0120 ng/mL (0.00-0.120) 12/15/16 11:15 Troponin I, Quant < 0.0120 ng/mL (0.00-0.120) 12/16/16 08:50 C-React Prot High Sens > 15.00 mg/L (1.00-3.00) H 12/17/16 08:22 NT-Pro-B Natriuret Pep 921 pg/mL (0-900) H 12/15/16 11:15 Total Protein 6.1 g/dL (6.3-8.3) L 12/20/16 06:56 Albumin 3.4 g/dL (3.5-5.0) L 12/20/16 06:56 Globulin 2.7 gm/dL (2.2-3.9) 12/20/16 06:56 Albumin/Globulin Ratio 1.3 (1.0-2.1) 12/20/16 06:56 Arterial Blood Potassium 4.2 mmol/L (3.6-5.2) 12/15/16 11:59 Urine Color Yellow (YELLOW) 12/15/16 11:46 Urine Clarity Hazy (Clear) 12/15/16 11:46 Urine pH 5.0 (5.0-8.0) 12/15/16 11:46 Ur Specific [place] 1.012 (1.003-1.030) 12/15/16 11:46 Urine Protein Negative mg/dL (NEGATIVE) 12/15/16 11:46 Urine Glucose (UA) Normal mg/dL (Normal) 12/15/16 11:46 Urine Ketones Negative mg/dL (NEGATIVE) 12/15/16 11:46 Urine Blood Negative (NEGATIVE) 12/15/16 11:46 Urine Nitrate Negative (NEGATIVE) 12/15/16 11:46 Urine Bilirubin Negative (NEGATIVE) 12/15/16 11:46 Urine Urobilinogen Normal mg/dL (0.2-1.0) 12/15/16 11:46 Ur Leukocyte Esterase Neg Ramón/uL (Negative) 12/15/16 11:46 Urine WBC (Auto) 1 /hpf (0-5) 12/15/16 11:46 Urine RBC (Auto) 2 /hpf (0-3) 12/15/16 11:46 Hyaline Casts 11-20 /lpf (0-2) H 12/15/16 11:46 - Hospital Course Hospital Course: Last few days Pt. has been getting progressively SOB till on today Pt. was unable to breath at rest . Pt. was seen in ER in acute hypercapnia resp. failure . Pt. improved on BiPaP . ICU admission was declined . PAST HIST. CHF with n EF/ HTN/ Dual pacemaker/COPD/ chr. Edema of legs with cellulitis / CAD with 2 stents /renal insufficiency PT IMPROVED ON BIPAP AND NEB/STEROIDS AND IV AB LEG SHOWED OPEN WOUND BLOOD CULTURES POS FOR E. COLI PT RECEIVEC PICC LINE AND TRANSFERRED TO REHAB. FOR IV AB FOR 2 WEEKS Discharge Plan - Discharge Medications Prescriptions: predniSONE [Prednisone] 30 mg PO DAILY #19 tab - Follow Up Plan Condition: SERIOUS Disposition: REHAB FACILITY/REHAB UNIT Instructions: Heart Failure (DC), Cellulitis (DC), Heart Healthy Diet (DC), COPD (Chronic Obstructive Pulmonary Disease) (DC) Additional Instructions: Please admit patient under Dr. Demarco service - call Dr. Demarco upon patient arrival to the facility Continue rocephin 2 gm ivbp daily x 2 weeks cbc, bmp , LFT , Q sunday for 2 weeks continue medication as per med. Rec. may use picc line, care as per facility protocol Referrals: Tiffanie Demarco MD [Staff Provider] -
== END 2016-12-20 17:30 | DRG 871 ==
LOC: C.ER 10:44 → C.9E 13:57 → C.6T 14:48
PROVIDERS: ADMIT Internal Medicine Cardiovascular Disease; ATTEND Internal Medicine Cardiovascular Disease
PROC: 5A09457 Assistance with Respiratory Ventilation, 24-96 Consecutive Hours, Continuous Positive Airway Pressure (ICD-10-PCS; principal; 2016-12-15)
PROC: 02HV33Z Insertion of Infusion Device into Superior Vena Cava, Percutaneous Approach (ICD-10-PCS; 2016-12-20)
DX: A41.51 Sepsis due to Escherichia coli [E. coli] (principal); J96.02 Acute respiratory failure with hypercapnia; L03.115 Cellulitis of right lower limb; I13.0 Hypertensive heart and chronic kidney disease with heart failure and stage 1 through stage 4 chronic kidney disease, or unspecified chronic kidney disease; L03.116 Cellulitis of left lower limb; L97.329 Non-pressure chronic ulcer of left ankle with unspecified severity; I50.9 Heart failure, unspecified; J44.9 Chronic obstructive pulmonary disease, unspecified; I25.10 Atherosclerotic heart disease of native coronary artery without angina pectoris; I87.2 Venous insufficiency (chronic) (peripheral); K21.9 Gastro-esophageal reflux disease without esophagitis; E78.00 Pure hypercholesterolemia, unspecified; N18.9 Chronic kidney disease, unspecified; Z96.1 Presence of intraocular lens; Z87.891 Personal history of nicotine dependence; Z95.0 Presence of cardiac pacemaker; Z95.5 Presence of coronary angioplasty implant and graft; Z98.49 Cataract extraction status, unspecified eye

== ENCOUNTER 2018-06-10 11:38 | Inpatient (IN) | payer MEDICARE ==
[2018-06-10 11:38] VITALS: BMI 42.5
[2018-06-10 12:18] LABS: BASO % 0.3 % (0.0-2.0); EOS # 0.2 K/uL (0.0-0.7); EOS % 2.2 % (0.0-4.0); LYMPH # 0.6 K/uL (1.0-4.3); MEAN CORPUSCULAR HEMOGLOBIN 27.6 pg (27.0-31.0); MEAN CORPUSCULAR HGB CONC 31.8 g/dL (33.0-37.0); MEAN PLATELET VOLUME 7.4 fL (7.2-11.7); MONO # 0.7 K/uL (0.0-0.8); MONO % 8.6 % (0.0-10.0); NEUT # 6.5 K/uL (1.8-7.0); NEUT % 80.9 % (50.0-75.0); PLATELET COUNT 201 K/uL (130-400); RBC 3.44 Mil/uL (4.40-5.90); RED CELL DISTRIBUTION WIDTH 13.8 % (11.5-14.5); WHITE BLOOD COUNT 8.1 K/uL (4.8-10.8)
[2018-06-10 12:23] LABS: HEMOGLOBIN 9.5 g/dL (12.0-18.0); MEAN CELL VOLUME 86.9 fL (80.0-94.0)
[2018-06-10 12:37] LABS: ABG ALLEN TEST POS; ARTERIAL BLOOD GAS O2 SAT 93.8 % (95-98); ARTERIAL BLOOD GAS PCO2 91 mm/Hg (35-45); ARTERIAL BLOOD GAS PH 7.34 (7.35-7.45); ARTERIAL BLOOD GAS PO2 58 mm/Hg (80-100); ARTERIAL BLOOD GAS TCO2 51.9 mmol/L (22-28)
[2018-06-10 12:44] LABS: EOSINOPHIL 1 % (0-4); LYMPHOCYTE 6 % (20-40); MONOCYTE 5 % (0-10); NEUTROPHIL 88 % (50-75); TOTAL CELLS COUNTED 100
[2018-06-10 12:46] LABS: PLATELET ESTIMATE NORMAL (NORMAL)
[2018-06-10 12:47] LABS: HYPOCHROMIC SLIGHT; OVALOCYTES SLIGHT; POLYCHROMIC SLIGHT
[2018-06-10 12:50] LABS: TROPONIN I 0.03 ng/mL (0.00-0.120)
[2018-06-10 13:10] LABS: ALB/GLOB RATIO 1.3 (1.0-2.1); ALBUMIN 3.8 g/dL (3.5-5.0); CALCIUM 9.1 mg/dl (8.6-10.4)
[2018-06-10 13:16] LABS: PROTHROMBIN TIME 11.4 SECONDS (9.7-12.2)
--- NOTE | 2018-06-10 13:36 | C.PDOC ---
History Of Present Illness 83 y/o male,w/PMhx of CHF, brought to ER by ambulance for evaluation of worsening shortness of breath. Patient states that he is taking increased doses of Lasix prescribed by PMD Dr. Anthony Rea for shortness of breath and worsening leg edema. Patient denies having CP, fever, chills, nausea, and vomiting. Time Seen by Provider: 06/10/18 11:51 Chief Complaint (Nursing): Weakness/Neurological Deficit History Per: Patient History/Exam Limitations: no limitations Onset/Duration Of Symptoms: Days Current Symptoms Are (Timing): Still Present Severity: Moderate Past Medical History Reviewed: Historical Data, Nursing Documentation, Vital Signs - Medical History PMH: Cardiac Aneurysm, CHF, COPD, HTN, Hypercholesterolemia, Peripheral Edema, Chronic Kidney Disease Surgical History: Coronary Stent (x2), Pacemaker - [facility] ASSISTANCE WITH RESPIRATORY VENTILATION, 24-96 HRS, CPAP (12/15/16) CATARAC PHACOEMULS/ASPIR (01/09/13) INSERT LENS AT CATAR EXT (01/09/13) INSERTION OF INFUSION DEV INTO SUP VENA CAVA, PERC APPROACH (12/15/16) Family History: States: No Known Family Hx - Social History Hx Tobacco Use: Yes Hx Alcohol Use: No Hx Substance Use: No - Immunization History Hx Tetanus Toxoid Vaccination: No Hx Influenza Vaccination: No Hx Pneumococcal Vaccination: Yes Review Of Systems Except As Marked, All Systems Reviewed And Found Negative. Constitutional: Negative for: Fever, Chills Cardiovascular: Negative for: Chest Pain Respiratory: Positive for: Shortness of Breath Gastrointestinal: Negative for: Nausea, Vomiting Physical Exam - Physical Exam Appears: Other (short of breath) Skin: Normal Color, Warm, Dry Head: Atraumatic, Normacephalic Eye(s): bilateral: Normal Inspection Nose: Normal Oral Mucosa: Moist Neck: Supple, Other (+JVD) Chest: Symmetrical Cardiovascular: Rhythm Regular Respiratory: Rales (bilateral rales), No Rhonchi, No Wheezing Gastrointestinal/Abdominal: Soft, No Tenderness, No Guarding, No Rebound, Other (obese) Extremity: Normal ROM, Other (pitting edema to bilateral lower extremities) Neurological/Psych: Oriented x3, Normal Speech ED Course And Treatment - Laboratory Results Result Diagrams: 06/10/18 12:06 06/10/18 12:06 Lab Interpretation: Abnormal (bnp 2660 H, trop neg.) ECG: Interpreted By Me, Viewed By Me ECG Rhythm: V Paced ECG Interpretation: Normal Rate From EC - Radiology CXR: Interpreted by Me CXR Interpretation: Yes: Infiltrates (+CHF) - Other Rad CXR X-Ray: Viewed By Me, Read By Radiologist Interpretation: Chest x-ray single frontal view. HISTORY: Shortness of breath. Comparison: 04/04/2018. Findings: Mild venous congestion. Patchy increased markings at the lung bases. Nodularity at the left lung base. Small left pleural effusion. Enlarged ectatic aorta. Atherosclerotic calcification at the aortic knob. Cardiomegaly. Left-sided pacemaker. Prominent superior mediastinum. Degenerative changes in the spine and shoulders. Impression: Mild venous congestion. Patchy increased markings at the lung bases. Nodularity at the left lung base. Small left pleural effusion. Enlarged ectatic aorta. Atherosclerotic calcification at the aortic knob. Cardiomegaly. Left-sided pacemaker. Prominent superior mediastinum. Reevaluation Time: 16:55 Reassessment Condition: Improved (200 cc urine output with lasix 40 IV, 2nd dose @ 60 mg IV ordered, chaparro ordered) - Physician Consult Information Outcome Of Conversation: 1630: d/w Dr. Radha Maxwell, covering pt's for Dr. Fredrick Rea, ok to admit. Medical Decision Making Medical Decision Making: CHF no PE prolonged sitting, unable to urinate without assitance chaparro cath Disposition Doctor Will See Patient In The: Hospital Counseled Patient/Family Regarding: Studies Performed, Diagnosis - Disposition Disposition: HOSPITALIZED Disposition Time: 16:56 Condition: GOOD Forms: [facility] ([place]) - Clinical Impression Clinical Impression: Acute exacerbation of CHF (congestive heart failure) - Scribe Statement The provider has reviewed the documentation as recorded by the [facility] Cooper Provider Attestation: All medical record entries made by the [facility] were at my direction and personally dictated by me. I have reviewed the chart and agree that the record accurately reflects my personal performance of the history, physical exam, medical decision making, and the department course for this patient. I have also personally directed, reviewed, and agree with the discharge instructions and disposition.
--- NOTE | 2018-06-10 13:44 | RAD ---
Chest x-ray single frontal view HISTORY: Shortness of breath. Comparison: 04/04/2018 Findings: Mild venous congestion. Patchy increased markings at the lung bases. Nodularity at the left lung base. Small left pleural effusion. Enlarged ectatic aorta. Atherosclerotic calcification at the aortic knob. Cardiomegaly. Left-sided pacemaker. Prominent superior mediastinum. Degenerative changes in the spine and shoulders. Impression: Mild venous congestion. Patchy increased markings at the lung bases. Nodularity at the left lung base. Small left pleural effusion. Enlarged ectatic aorta. Atherosclerotic calcification at the aortic knob. Cardiomegaly. Left-sided pacemaker. Prominent superior mediastinum.
[2018-06-10] MEDS ORDERED: Iodixanol 320 MG/ML 100 ML BOTTLE IV ONE (14:03)
[2018-06-10 14:41] LABS: SQUAMOUS EPITHIAL 3 /hpf (0-5); URINE BACTERIA RARE (<OCC); URINE BILIRUBIN NEGATIVE (NEGATIVE); URINE BLOOD NEGATIVE (NEGATIVE); URINE CLARITY Clear (Clear); URINE COLOR Yellow (YELLOW); URINE GLUCOSE (UA) NORMAL (Normal); URINE LEUKOCYTE ESTERASE TRACE Leu/uL (Negative); URINE PROTEIN NEGATIVE (NEGATIVE); URINE UROBILINOGEN NORMAL mg/dL (0.2-1.0)
--- NOTE | 2018-06-10 16:01 | CT ---
Date of service: 06/10/2018 PROCEDURE: CT Chest with contrast (Pulmonary Angiogram) HISTORY: sob, hypoxic, CHF, ++ D-Dimer COMPARISON: None available. TECHNIQUE: Axial computed tomography images were obtained of the chest in the pulmonary arterial phase of enhancement. Coronal and sagittal reformatted images were created and reviewed. Intravenous contrast dose: Visipaque 320, 100 cc Radiation dose: Total exam DLP = 623.27 mGy-cm. This CT exam was performed using one or more of the following dose reduction techniques: Automated exposure control, adjustment of the mA and/or kV according to patient size, and/or use of iterative reconstruction technique. FINDINGS: PULMONARY ARTERIES: No definitive pulmonary embolism appreciable. AORTA: Calcific atherosclerotic changes are seen related to the thoracic aorta. Calcific coronary artery atherosclerotic changes are also identified. LUNGS: Dense right right lower lobe medial basilar subsegmental atelectasis or infiltrate is identified with limited bilateral basilar dependent atelectasis otherwise noted more definitively. Underlying lesion not excluded at this right medial basilar subsegment and clinical correlation as well as CT follow-up are advised. Linear atelectasis or fibrosis seen at the lingula and left lower lobe. A 4 mm nodular focus is questioned at the inferior trachea 1-2 cm above the level the michelle potentially reflecting mucoid material or nodule. PLEURAL SPACES: Mild right pleural effusion, minimal left pleural effusion. No pneumothorax bilaterally. HEART: Cardiomegaly is appreciated which trace pericardial thickening or fluid seen posteriorly. Permanent cardiac pacemaker is identified deployed via left subclavian vein approach with 2 leads identified into the right heart. Generator is seen overlying the left pectoralis muscle. 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 LYMPH NODES: Shotty mediastinal lymph nodes are identified. No suspicious lymphadenopathy noted. BONES, CHEST WALL: Unremarkable. No fracture or destructive lesion OTHER FINDINGS: Unremarkable. IMPRESSION: 1. [id number] CHF identified. No definite pattern to suggest pulmonary embolus at this time. 2. Cardiomegaly with significant coronary artery atherosclerotic plaque identified. 3. Right lower lobe medial basilar dense infiltrate or possible soft tissue lesion. Follow-up CT is advised following therapy. 4. Limited bibasilar dependent atelectasis. Mild right and minimal left pleural effusions are identified. Minimal pericardial thickening or effusion noted posteriorly. 5. Permanent cardiac pacemaker identified in situ as per above.
[2018-06-10] MEDS: Albuterol-Ipratrop 3 mg / 0.5 (3 ml) UD INH SCH (19:00)
--- NOTE | 2018-06-10 19:12 | CP.PCM.HP ---
Past Patient History - Infectious Disease Hx of Infectious Diseases: None - Past Medical History & Family History Past Medical History?: Yes - Past Social History Smoking Status: Former Smoker - CARDIAC Hx Congestive Heart Failure: Yes Hx Hypercholesterolemia: Yes Hx Hypertension: Yes Hx Pacemaker: Yes Hx Peripheral Edema: Yes - PULMONARY Hx Chronic Obstructive Pulmonary Disease (COPD): Yes - RENAL Hx Chronic Kidney Disease: Yes - MUSCULOSKELETAL/RHEUMATOLOGICAL Hx Falls: Yes Hx Unsteady Gait: Yes - PSYCHIATRIC Hx Substance Use: No - SURGICAL HISTORY Hx Coronary Stent: Yes (x2) - ANESTHESIA Hx Anesthesia: Yes Hx Anesthesia Reactions: No Meds Allergies/Adverse Reactions: Allergies Allergy/AdvReac Type Severity Reaction Status Date / Time No Known Allergies Allergy Verified 06/10/18 11:49 Results - Vital Signs Recent Vital Signs: Last Vital Signs Temp Pulse 77 06/10/18 17:54 Resp 18 06/10/18 17:54 BP 125/44 L 06/10/18 17:54 Pulse Ox 97 06/10/18 17:54 - Labs Result Diagrams: 06/10/18 12:06 06/10/18 12:06 Labs: Laboratory Results - last 24 hr 06/10/18 06/10/18 06/10/18 12:06 12:06 12:06 WBC 8.1 RBC 3.44 L Hgb 9.5 L D Hct 29.9 L MCV 86.9 D MCH 27.6 MCHC 31.8 L RDW 13.8 Plt Count 201 MPV 7.4 Neut % (Auto) 80.9 H Lymph % (Auto) 8.0 L [place] % (Auto) 8.6 Eos % (Auto) 2.2 Baso % (Auto) 0.3 Neut # (Auto) 6.5 Lymph # (Auto) 0.6 L [place] # (Auto) 0.7 Eos # (Auto) 0.2 Baso # (Auto) 0.0 Neutrophils % (Manual) 88 H Lymphocytes % (Manual) 6 L Monocytes % (Manual) 5 Eosinophils % (Manual) 1 Platelet Estimate Normal Polychromasia Slight Hypochromasia (manual) Slight Ovalocytes Slight PT 11.4 INR 1.0 APTT 32 D-Dimer, Quantitative 954 H Puncture Site pCO2 pO2 HCO3 ABG pH ABG Total CO2 ABG O2 Saturation ABG Base Excess Froylan Test ABG Potassium Glucose Lactate Liter Flow Crit Value Called To Crit Value Called By Crit Value Read Back Blood Gas Notified Time Sodium 140 Potassium 4.6 Chloride 91 L Carbon Dioxide 42 H* D Anion Gap 12 BUN 29 H Creatinine 1.4 Est GFR ( Amer) 59 Est GFR (Non-Af Amer) 49 Random Glucose 157 H Calcium 9.1 Total Bilirubin 0.5 AST 19 ALT 22 Alkaline Phosphatase 69 Troponin I 0.0300 NT-Pro-B Natriuret Pep 2660 H Total Protein 6.7 Albumin 3.8 Globulin 2.9 Albumin/Globulin Ratio 1.3 Arterial Blood Potassium Urine Color Urine Clarity Urine pH Ur Specific [place] Urine Protein Urine Glucose (UA) Urine Ketones Urine Blood Urine Nitrate Urine Bilirubin Urine Urobilinogen Ur Leukocyte Esterase Urine WBC (Auto) Urine RBC (Auto) Ur Squamous Epith Cells Urine Bacteria Hyaline Casts Influenza Typ A,B (EIA) 06/10/18 06/10/18 06/10/18 12:19 12:25 14:26 WBC RBC Hgb Hct MCV MCH MCHC RDW Plt Count MPV Neut % (Auto) Lymph % (Auto) [place] % (Auto) Eos % (Auto) Baso % (Auto) Neut # (Auto) Lymph # (Auto) [place] # (Auto) Eos # (Auto) Baso # (Auto) Neutrophils % (Manual) Lymphocytes % (Manual) Monocytes % (Manual) Eosinophils % (Manual) Platelet Estimate Polychromasia Hypochromasia (manual) Ovalocytes PT INR APTT D-Dimer, Quantitative Puncture Site Rr pCO2 91 H* pO2 58 L HCO3 39.0 H ABG pH 7.34 L ABG Total CO2 51.9 H ABG O2 Saturation 93.8 L ABG Base Excess 18.4 H Froylan Test Pos ABG Potassium 4.3 Glucose 153 H Lactate 1.0 Liter Flow 5.0 Crit Value Called To Desire vaila Crit Value Called By Alicia guevara Crit Value Read Back Y Blood Gas Notified Time 1236 Sodium 143.0 Potassium Chloride 103.0 Carbon Dioxide Anion Gap BUN Creatinine Est GFR ( Amer) Est GFR (Non-Af Amer) Random Glucose Calcium Total Bilirubin AST ALT Alkaline Phosphatase Troponin I NT-Pro-B Natriuret Pep Total Protein Albumin Globulin Albumin/Globulin Ratio Arterial Blood Potassium 4.3 Urine Color Yellow Urine Clarity Clear Urine pH 5.0 Ur Specific [place] 1.010 Urine Protein Negative Urine Glucose (UA) Normal Urine Ketones Negative Urine Blood Negative Urine Nitrate Negative Urine Bilirubin Negative Urine Urobilinogen Normal Ur Leukocyte Esterase Trace Urine WBC (Auto) 3 Urine RBC (Auto) 1 Ur Squamous Epith Cells 3 Urine Bacteria Rare Hyaline Casts 3-5 H Influenza Typ A,B (EIA) Negative for flu a/b
[2018-06-10] MEDS ORDERED: cefTRIAXone (Rocephin) 2 gm Inj IVPB SCH (19:30)
[2018-06-11] MEDS: Albuterol-Ipratrop 3 mg / 0.5 (3 ml) UD INH SCH ×4 (01:38→20:20)
[2018-06-11] MEDS ORDERED: Fluticasone-Vilanterol 100/25mcg Diskus INH SCH (08:00)
[2018-06-11] MEDS: Pantoprazole 40 mg EC Tab PO SCH (11:01)
[2018-06-11] MEDS: Vitamin B Complex/Vitamin C Tab PO SCH (11:02)
[2018-06-11 12:47] LABS: CALCIUM 8.9 mg/dl (8.6-10.4)
--- NOTE | 2018-06-11 13:59 | CP.PCM.CON ---
History of Present Illness - History of Present Illness History of Present Illness: CC: Syncope 83 year old man with following chronic medical conditions 1. COPD severe O2 dependent non compliant with CPAP 2. 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 on EKG and telemetry Review of Systems - Review of Systems All systems: reviewed and no additional remarkable complaints except Review of Systems: +Shortness of breath Past Patient History - Infectious Disease Hx of Infectious Diseases: None - Past Medical History & Family History Past Medical History?: Yes - Past Social History Smoking Status: Former Smoker - CARDIAC Hx Congestive Heart Failure: Yes Hx Hypercholesterolemia: Yes Hx Hypertension: Yes Hx Pacemaker: Yes Hx Peripheral Edema: Yes - PULMONARY Hx Chronic Obstructive Pulmonary Disease (COPD): Yes - HEENT Hx Deafness: (hard of hearing) - RENAL Hx Chronic Kidney Disease: Yes - MUSCULOSKELETAL/RHEUMATOLOGICAL Hx Falls: Yes - PSYCHIATRIC Hx Substance Use: No - SURGICAL HISTORY Hx Coronary Stent: Yes (x2) - ANESTHESIA Hx Anesthesia: Yes Hx Anesthesia Reactions: No Meds Allergies/Adverse Reactions: Allergies Allergy/AdvReac Type Severity Reaction Status Date / Time No Known Allergies Allergy Verified 06/10/18 11:49 - Medications Medications: Current Medications Albuterol/Ipratropium (Duoneb 3 Mg/0.5 Mg (3 Ml) Ud) 3 ml INH RQ6 [facility] Last Admin: 06/11/18 07:46 Dose: 3 ml Amlodipine Besylate (Norvasc) 5 mg PO DAILY [facility] Last Admin: 06/11/18 11:01 Dose: 5 mg Clopidogrel Bisulfate (Plavix) 75 mg PO DAILY [facility] Last Admin: 06/11/18 11:03 Dose: 75 mg Fluticasone/Vilanterol (Breo Ellipta 100-25 Mcg Inh) 1 puff INH RQ24 [facility] Furosemide (Lasix) 60 mg IVP DAILY [facility] Last Admin: 06/11/18 11:09 Dose: Not Given Furosemide (Lasix) 20 mg PO DAILY [facility] Last Admin: 06/11/18 11:10 Dose: Not Given Heparin Sodium (Porcine) (Heparin) 5,000 units SC Q12 [facility] Last Admin: 06/11/18 11:02 Dose: 5,000 units Ceftriaxone Sodium 2 gm/ (Sodium Chloride) 100 mls @ 100 mls/hr IVPB Q24H [facility] Stop: 06/23/18 20:29 Influenza Virus Vaccine (Fluzone Quad [id number]) 60 mcg IM .ONCE ONE Stop: 06/12/18 12:01 Pantoprazole Sodium (Protonix Ec Tab) 40 mg PO DAILY [facility] Last Admin: 06/11/18 11:01 Dose: 40 mg Pneumococcal Polyvalent Vaccine (Pneumovax 23 Vaccine) 0.5 ml IM .ONCE ONE Stop: 06/12/18 12:01 Roflumilast (Daliresp) 500 mcg PO DAILY [facility] Rosuvastatin Calcium (Crestor) 10 mg PO HS [facility] Last Admin: 06/10/18 22:26 Dose: 10 mg Tramadol HCl (Ultram) 50 mg PO TID PRN PRN Reason: Pain, moderate (4-7) Vitamin B Complex/Vitamin C (Berocca) 1 tab PO DAILY [facility] Last Admin: 06/11/18 11:02 Dose: 1 tab Physical Exam - Constitutional Appears: Well, Non-toxic, Unkempt - Head Exam Head Exam: ATRAUMATIC, NORMAL INSPECTION, NORMOCEPHALIC - Eye Exam Eye Exam: PERRL. absent: Scleral icterus - ENT Exam ENT Exam: Mucous Membranes Dry, Normal External Ear Exam - Neck Exam Neck exam: Positive for: Full Rom. Negative for: Lymphadenopathy - Respiratory Exam Respiratory Exam: Accessory Muscle Use, Rhonchi, Wheezes - Cardiovascular Exam Cardiovascular Exam: REGULAR RHYTHM, RRR, +S1, +S2. absent: JVD Additional comments: Chronic venous stasis dermatitis, UNNA boots intact - GI/Abdominal Exam GI & Abdominal Exam: Normal Bowel Sounds. absent: Organomegaly - Extremities Exam Extremities exam: Positive for: pedal edema. Negative for: calf tenderness - Neurological Exam Neurological exam: CN II-XII Intact, Oriented x3 - Psychiatric Exam Psychiatric exam: Normal Mood Additional comments: Pschizoid affect Results - Vital Signs Recent Vital Signs: Last Vital Signs Temp 98.1 F 06/11/18 08:28 Pulse 80 06/11/18 09:01 Resp 20 06/11/18 08:28 BP 126/53 L 06/11/18 11:11 Pulse Ox 92 L 06/11/18 11:11 - Labs Result Diagrams: 06/10/18 12:06 06/11/18 11:20 Labs: Laboratory Results - last 24 hr 12/10/18 12/11/18 14:26 11:20 Sodium 138 Potassium 4.4 Chloride 87 L Carbon Dioxide 43 H* Anion Gap 12 BUN 28 H Creatinine 1.5 Est GFR ( Amer) 54 Est GFR (Non-Af Amer) 45 Random Glucose 135 H Calcium 8.9 Urine Color Yellow Urine Clarity Clear Urine pH 5.0 Ur Specific [place] 1.010 Urine Protein Negative Urine Glucose (UA) Normal Urine Ketones Negative Urine Blood Negative Urine Nitrate Negative Urine Bilirubin Negative Urine Urobilinogen Normal Ur Leukocyte Esterase Trace Urine WBC (Auto) 3 Urine RBC (Auto) 1 Ur Squamous Epith Cells 3 Urine Bacteria Rare Hyaline Casts 3-5 H - EKG Data EKG Interpreted by: Myself EKG shows normal: Sinus rhythm Rate: Normal (V pacing, ) - Imaging and Cardiology Chest x-ray Status: Image reviewed by me Additional comment: Poor inspirtory effort, pleural effusions; PPM CT scan - chest Status: Image reviewed by me Additional comment: Right lower lobe infiltrate; possible pulmonary edema, Large volume of atheroma; Pacing wires Assessment & Plan - Assessment and Plan (Free Text) Assessment: 83 year old man with syncope likely due to over diuresis; hold diuretics today Metabolic alkalosis from contraction check ABG, consider diamox to be added to low dose of diuretic for chronic fluid management of COPD COPD bipap; bronchodilators ASHD high dose statin dual anti platelet therapy Complete HB s/p PPM now V pacing, interrogate device as outpatient if he has large burden of Vpacing he may benefit from resynchronization if cardiomyopathy is present, Check 2D echo to measure EF
--- NOTE | 2018-06-11 16:20 | CP.PCM.PN ---
Subjective - Date & Time of Evaluation Date of Evaluation: 06/11/18 Time of Evaluation: 09:45 - Subjective Subjective: clinically same Objective - Vital Signs/Intake and Output Vital Signs (last 24 hours): Temp Pulse Resp BP Pulse Ox 98.1 F 80 20 126/53 L 92 L 06/11/18 08:28 06/11/18 09:01 06/11/18 08:28 06/11/18 11:11 06/11/18 11:11 Intake and Output: 06/11/18 06/11/18 06:59 18:59 Intake Total 50 300 Output Total 2900 400 Balance -2850 -100 - Medications Medications: Current Medications Albuterol/Ipratropium (Duoneb 3 Mg/0.5 Mg (3 Ml) Ud) 3 ml INH RQ6 [facility] Last Admin: 06/11/18 14:04 Dose: 3 ml Amlodipine Besylate (Norvasc) 5 mg PO DAILY [facility] Last Admin: 06/11/18 11:01 Dose: 5 mg Clopidogrel Bisulfate (Plavix) 75 mg PO DAILY [facility] Last Admin: 06/11/18 11:03 Dose: 75 mg Fluticasone/Vilanterol (Breo Ellipta 100-25 Mcg Inh) 1 puff INH RQ24 [facility] Furosemide (Lasix) 60 mg IVP DAILY [facility] Last Admin: 06/11/18 11:09 Dose: Not Given Furosemide (Lasix) 20 mg PO DAILY [facility] Last Admin: 06/11/18 11:10 Dose: Not Given Heparin Sodium (Porcine) (Heparin) 5,000 units SC Q12 [facility] Last Admin: 06/11/18 11:02 Dose: 5,000 units Ceftriaxone Sodium 2 gm/ (Sodium Chloride) 100 mls @ 100 mls/hr IVPB Q24H [facility] Stop: 06/23/18 20:29 Influenza Virus Vaccine (Fluzone Quad [id number]) 60 mcg IM .ONCE ONE Stop: 06/12/18 12:01 Pantoprazole Sodium (Protonix Ec Tab) 40 mg PO DAILY [facility] Last Admin: 06/11/18 11:01 Dose: 40 mg Pneumococcal Polyvalent Vaccine (Pneumovax 23 Vaccine) 0.5 ml IM .ONCE ONE Stop: 06/12/18 12:01 Roflumilast (Daliresp) 500 mcg PO DAILY [facility] Last Admin: 06/11/18 14:24 Dose: 500 mcg Rosuvastatin Calcium (Crestor) 10 mg PO HS [facility] Last Admin: 06/10/18 22:26 Dose: 10 mg Tramadol HCl (Ultram) 50 mg PO TID PRN PRN Reason: Pain, moderate (4-7) Vitamin B Complex/Vitamin C (Berocca) 1 tab PO DAILY [facility] Last Admin: 06/11/18 11:02 Dose: 1 tab - Labs Labs: 06/10/18 12:06 06/11/18 11:20 PT 11.4 SECONDS (9.7-12.2) 06/10/18 12:06 INR 1.0 06/10/18 12:06 APTT 32 SECONDS (21-34) 06/10/18 12:06 - Constitutional Appears: Well - Head Exam Head Exam: ATRAUMATIC, NORMAL INSPECTION, NORMOCEPHALIC - Eye Exam Eye Exam: EOMI, Normal appearance, PERRL Pupil Exam: NORMAL ACCOMODATION, PERRL - ENT Exam ENT Exam: Mucous Membranes Moist, Normal Exam - Neck Exam Neck Exam: Full ROM, Normal Inspection. absent: Lymphadenopathy - Respiratory Exam Respiratory Exam: Decreased Breath Sounds - Cardiovascular Exam Cardiovascular Exam: REGULAR RHYTHM, +S1, +S2 - GI/Abdominal Exam GI & Abdominal Exam: Soft, Diminished Bowel Sounds - Rectal Exam Rectal Exam: Deferred
--- NOTE | 2018-06-11 17:03 | CP.PCM.CON ---
History of Present Illness - History of Present Illness History of Present Illness: 83 y/o male,w/PMhx of CHF, brought to ER by ambulance for evaluation of worsening shortness of breath. Patient states that he is taking increased doses of Lasix prescribed by PMD Dr. Anthony Navarro for shortness of breath and worsening leg edema. Patient denies having CP, fever, chills, nausea, and vomiting. Review of Systems - Review of Systems All systems: reviewed and no additional remarkable complaints except (as mentioned in HPI) Past Patient History - Infectious Disease Hx of Infectious Diseases: None - Past Medical History & Family History Past Medical History?: Yes - Past Social History Smoking Status: Former Smoker - CARDIAC Hx Congestive Heart Failure: Yes Hx Hypercholesterolemia: Yes Hx Hypertension: Yes Hx Pacemaker: Yes Hx Peripheral Edema: Yes - PULMONARY Hx Chronic Obstructive Pulmonary Disease (COPD): Yes - HEENT Hx Deafness: (hard of hearing) - RENAL Hx Chronic Kidney Disease: Yes - MUSCULOSKELETAL/RHEUMATOLOGICAL Hx Falls: Yes - PSYCHIATRIC Hx Substance Use: No - SURGICAL HISTORY Hx Coronary Stent: Yes (x2) - ANESTHESIA Hx Anesthesia: Yes Hx Anesthesia Reactions: No Meds Home Medications: Home Medication List Medication Instructions Recorded Confirmed Type Cephalexin [Keflex] 500 mg PO BID #6 capsule 06/22/18 Rx predniSONE [Prednisone] 10 mg PO DAILY #10 tab 06/22/18 Rx Allergies/Adverse Reactions: Allergies Allergy/AdvReac Type Severity Reaction Status Date / Time No Known Allergies Allergy Verified 06/10/18 11:49 - Medications Medications: Current Medications Albuterol/Ipratropium (Duoneb 3 Mg/0.5 Mg (3 Ml) Ud) 3 ml INH RQ6 [facility] Last Admin: 06/11/18 14:04 Dose: 3 ml Amlodipine Besylate (Norvasc) 5 mg PO DAILY [facility] Last Admin: 06/11/18 11:01 Dose: 5 mg Clopidogrel Bisulfate (Plavix) 75 mg PO DAILY [facility] Last Admin: 06/11/18 11:03 Dose: 75 mg Fluticasone/Vilanterol (Breo Ellipta 100-25 Mcg Inh) 1 puff INH RQ24 [facility] Furosemide (Lasix) 60 mg IVP DAILY [facility] Last Admin: 06/11/18 11:09 Dose: Not Given Furosemide (Lasix) 20 mg PO DAILY [facility] Last Admin: 06/11/18 11:10 Dose: Not Given Heparin Sodium (Porcine) (Heparin) 5,000 units SC Q12 [facility] Last Admin: 06/11/18 11:02 Dose: 5,000 units Ceftriaxone Sodium 2 gm/ (Sodium Chloride) 100 mls @ 100 mls/hr IVPB Q24H [facility] Stop: 06/23/18 20:29 Influenza Virus Vaccine (Fluzone Quad [id number]) 60 mcg IM .ONCE ONE Stop: 06/12/18 12:01 Pantoprazole Sodium (Protonix Ec Tab) 40 mg PO DAILY [facility] Last Admin: 06/11/18 11:01 Dose: 40 mg Pneumococcal Polyvalent Vaccine (Pneumovax 23 Vaccine) 0.5 ml IM .ONCE ONE Stop: 06/12/18 12:01 Roflumilast (Daliresp) 500 mcg PO DAILY [facility] Last Admin: 06/11/18 14:24 Dose: 500 mcg Rosuvastatin Calcium (Crestor) 10 mg PO HS [facility] Last Admin: 06/10/18 22:26 Dose: 10 mg Tramadol HCl (Ultram) 50 mg PO TID PRN PRN Reason: Pain, moderate (4-7) Vitamin B Complex/Vitamin C (Berocca) 1 tab PO DAILY [facility] Last Admin: 06/11/18 11:02 Dose: 1 tab Physical Exam - Head Exam Head Exam: NORMAL INSPECTION - Eye Exam Eye Exam: Normal appearance - ENT Exam ENT Exam: Mucous Membranes Moist - Respiratory Exam Respiratory Exam: Decreased Breath Sounds, Rhonchi, Wheezes - Cardiovascular Exam Cardiovascular Exam: REGULAR RHYTHM, +S1, +S2 - GI/Abdominal Exam GI & Abdominal Exam: Normal Bowel Sounds, Soft Results - Vital Signs Recent Vital Signs: Last Vital Signs Temp 98.2 F 06/11/18 15:00 Pulse 90 06/11/18 15:00 Resp 20 06/11/18 15:00 BP 115/74 06/11/18 15:00 Pulse Ox 94 L 06/11/18 15:00 - Labs Result Diagrams: 06/19/18 10:58 06/20/18 07:17 Labs: Laboratory Results - last 24 hr 06/11/18 11:20 Sodium 138 Potassium 4.4 Chloride 87 L Carbon Dioxide 43 H* Anion Gap 12 BUN 28 H Creatinine 1.5 Est GFR ( Amer) 54 Est GFR (Non-Af Amer) 45 Random Glucose 135 H Calcium 8.9 Assessment & Plan (1) Acute exacerbation of CHF (congestive heart failure) Status: Acute (2) Dyspnea Status: Acute (3) COPD (chronic obstructive pulmonary disease) Status: Chronic - Assessment and Plan (Free Text) Plan: BiPAP as needed IV steroids Abx Lasix O2 Breo Ellipta Bronchodilators DVT/GI prophalaxis
[2018-06-11 19:03] LABS: ABG ALLEN TEST YES; ARTERIAL BLOOD GAS HCO3 44.8 mmol/L (21-28); ARTERIAL BLOOD GAS HEMOGLOBIN 8.8 g/dL (11.7-17.4); ARTERIAL BLOOD GAS PCO2 87 mm/Hg (35-45); ARTERIAL BLOOD GAS PO2 63 mm/Hg (80-100); ARTERIAL BLOOD GAS TCO2 56.6 mmol/L (22-28)
[2018-06-11] MEDS: cefTRIAXone 2 GM in Sodium Chloride 0.9% 100 ML IVPB SCH (19:45)
--- NOTE | 2018-06-11 21:48 | CARD ---
APPROVED REPORT Date of service: 06/10/2018 EKG Measurement Heart [id number] <Conclusion> Ventricular-paced rhythm Abnormal ECG
--- NOTE | 2018-06-11 23:25 | CP.PCM.CON ---
History of Present Illness - History of Present Illness History of Present Illness: Podiatry - Dr. Morrell 83M seen and evaluated this AM for chronic LLE wound. Patient well known to Dr. Morrell's service. Patient admitted for CHF exacerbation. At present, patient denies any pain to left leg wound; states he sees Dr. Morrell in office for continued local wound care and denies any recent changes to wound site. Patient states wound care is provided by son at home. Reports SOB though improving. Denies n/v/f/d/c. PMH: Cardiac Aneurysm, CHF, COPD, HTN, Hypercholesterolemia, Peripheral Edema, Chronic Kidney Disease PSH: Coronary Stent (x2), Pacemaker All: NKDA Review of Systems - Review of Systems All systems: reviewed and no additional remarkable complaints except (as per HPI) Past Patient History - Infectious Disease Hx of Infectious Diseases: None - Past Medical History & Family History Past Medical History?: Yes - Past Social History Smoking Status: Former Smoker - CARDIAC Hx Congestive Heart Failure: Yes Hx Hypercholesterolemia: Yes Hx Hypertension: Yes Hx Pacemaker: Yes Hx Peripheral Edema: Yes - PULMONARY Hx Chronic Obstructive Pulmonary Disease (COPD): Yes - HEENT Hx Deafness: (hard of hearing) - RENAL Hx Chronic Kidney Disease: Yes - MUSCULOSKELETAL/RHEUMATOLOGICAL Hx Falls: Yes - PSYCHIATRIC Hx Substance Use: No - SURGICAL HISTORY Hx Coronary Stent: Yes (x2) - ANESTHESIA Hx Anesthesia: Yes Hx Anesthesia Reactions: No Meds Allergies/Adverse Reactions: Allergies Allergy/AdvReac Type Severity Reaction Status Date / Time No Known Allergies Allergy Verified 06/10/18 11:49 - Medications Medications: Current Medications Albuterol/Ipratropium (Duoneb 3 Mg/0.5 Mg (3 Ml) Ud) 3 ml INH RQ6 [facility] Last Admin: 06/11/18 20:20 Dose: 3 ml Amlodipine Besylate (Norvasc) 5 mg PO DAILY [facility] Last Admin: 06/11/18 11:01 Dose: 5 mg Clopidogrel Bisulfate (Plavix) 75 mg PO DAILY [facility] Last Admin: 06/11/18 11:03 Dose: 75 mg Fluticasone/Vilanterol (Breo Ellipta 100-25 Mcg Inh) 1 puff INH RQ24 [facility] Furosemide (Lasix) 60 mg IVP DAILY [facility] Last Admin: 06/11/18 11:09 Dose: Not Given Furosemide (Lasix) 20 mg PO DAILY [facility] Last Admin: 12/11/18 11:10 Dose: Not Given Heparin Sodium (Porcine) (Heparin) 5,000 units SC Q12 [facility] Last Admin: 06/11/18 22:24 Dose: 5,000 units Ceftriaxone Sodium 2 gm/ (Sodium Chloride) 100 mls @ 100 mls/hr IVPB Q24H [facility] Stop: 06/23/18 20:29 Last Admin: 06/11/18 19:45 Dose: 100 mls/hr Influenza Virus Vaccine (Fluzone Quad [id number]) 60 mcg IM .ONCE ONE Stop: 06/12/18 12:01 Pantoprazole Sodium (Protonix Ec Tab) 40 mg PO DAILY [facility] Last Admin: 06/11/18 11:01 Dose: 40 mg Pneumococcal Polyvalent Vaccine (Pneumovax 23 Vaccine) 0.5 ml IM .ONCE ONE Stop: 06/12/18 12:01 Roflumilast (Daliresp) 500 mcg PO DAILY [facility] Last Admin: 06/11/18 14:24 Dose: 500 mcg Rosuvastatin Calcium (Crestor) 10 mg PO HS [facility] Last Admin: 06/11/18 22:24 Dose: 10 mg Tramadol HCl (Ultram) 50 mg PO TID PRN PRN Reason: Pain, moderate (4-7) Vitamin B Complex/Vitamin C (Berocca) 1 tab PO DAILY [facility] Last Admin: 06/11/18 11:02 Dose: 1 tab Physical Exam - Constitutional Appears: No Acute Distress - Extremities Exam Additional comments: VASC: DP and PT pulses nonpalpable b/l. CFT <3 seconds to digits. +1 pitting edema noted b/l. Temperature gradient warm to warm with no increase in warmth to left lateral leg wound. NEURO: Gross sensation diminished. DERM: Venous stasis dermatitis present to legs circumfirentially b/l. Venous stasis wound noted to left lateral leg measuring approximately 8 x 6 cm with second wound more anterior measuring approximately 2 x 1 cm - both ulcers noted to have 100% granular base with serous drainage present; foul odor present. Weeping noted to areas of venous stasis dermatitis b/l. ORTHO: No pain on palpation to wound site. No pain upon calf squeeze b/l. - Neurological Exam Neurological exam: Alert, Oriented x3 - Psychiatric Exam Psychiatric exam: Normal Affect, Normal Mood Results - Vital Signs Recent Vital Signs: Last Vital Signs Temp 98.2 F 06/11/18 15:00 Pulse 90 06/11/18 15:00 Resp 20 06/11/18 15:00 BP 115/74 06/11/18 15:00 Pulse Ox 94 L 06/11/18 15:00 - Labs Result Diagrams: 06/10/18 12:06 06/11/18 11:20 Labs: Laboratory Results - last 24 hr 06/11/18 06/11/18 11:20 18:45 Puncture Site Rb pCO2 87 H* pO2 63 L HCO3 44.8 H* ABG pH 7.40 ABG Total CO2 56.6 H ABG O2 Saturation 97.0 ABG Base Excess 25.5 H ABG Hemoglobin 8.8 L ABG Carboxyhemoglobin 2.9 H POC ABG HHb (Measured) 2.9 ABG Methemoglobin 1.3 Froylan Test Yes A-a O2 Difference 78.0 Respiratory Index 1.2 Hgb O2 Saturation 92.8 L FiO2 35.0 Crit Value Called To Mendoza rn Crit Value Called By Steven rt Crit Value Read Back Y Blood Gas Notified Time 1901 Sodium 138 Potassium 4.4 Chloride 87 L Carbon Dioxide 43 H* Anion Gap 12 BUN 28 H Creatinine 1.5 Est GFR ( Amer) 54 Est GFR (Non-Af Amer) 45 Random Glucose 135 H Calcium 8.9 Assessment & Plan - Assessment and Plan (Free Text) Assessment: 83M with extensive PMH including Cardiac Aneurysm, CHF, COPD, HTN, Hypercholesterolemia, Peripheral Edema, Chronic Kidney Disease seen and evaluated for chronic left leg wound Plan: Patient seen and evaluated Discussed with attending, Dr. Morrell Afebrile Local wound care provided: saline cleanse, xeroform, DSD Continue abx per primary - Ceftriaxone Activity: WBAT Podiatry will continue to follow
[2018-06-12] MEDS: Albuterol-Ipratrop 3 mg / 0.5 (3 ml) UD INH SCH ×4 (01:29→19:19)
[2018-06-12] MEDS: Vitamin B Complex/Vitamin C Tab PO SCH (10:16)
[2018-06-12] MEDS: Pantoprazole 40 mg EC Tab PO SCH (10:17)
[2018-06-12] MEDS ORDERED: Influenza Vaccine 60 MCG/0.5 ML SYR (3 yr & up) IM ONE (12:00)
[2018-06-12] MEDS ORDERED: Pneumococcal 23-Valent Vaccine IM ONE (12:00)
--- NOTE | 2018-06-12 13:23 | CP.PCM.PN ---
Subjective - Date & Time of Evaluation Date of Evaluation: 06/12/18 Time of Evaluation: 13:23 - Subjective Subjective: Pt is seen and examined On and off BiPAP Objective - Vital Signs/Intake and Output Vital Signs (last 24 hours): Temp Pulse Resp BP Pulse Ox 98.1 F 86 20 138/54 L 92 L 06/12/18 08:40 06/12/18 08:40 06/12/18 08:40 06/12/18 11:33 06/12/18 08:40 Intake and Output: 06/12/18 06/12/18 06:59 18:59 Intake Total 400 Output Total 450 Balance -50 - Medications Medications: Current Medications Albuterol/Ipratropium (Duoneb 3 Mg/0.5 Mg (3 Ml) Ud) 3 ml INH RQ6 [facility] Last Admin: 06/12/18 13:21 Dose: 3 ml Alprazolam (Xanax) 0.5 mg PO HS [facility] Amlodipine Besylate (Norvasc) 5 mg PO DAILY [facility] Last Admin: 06/12/18 10:16 Dose: 5 mg Clopidogrel Bisulfate (Plavix) 75 mg PO DAILY [facility] Last Admin: 06/12/18 10:16 Dose: 75 mg Fluticasone/Vilanterol (Breo Ellipta 100-25 Mcg Inh) 1 puff INH RQ24 [facility] Furosemide (Lasix) 60 mg IVP DAILY [facility] Last Admin: 06/12/18 11:33 Dose: 60 mg Heparin Sodium (Porcine) (Heparin) 5,000 units SC Q12 [facility] Last Admin: 06/12/18 10:17 Dose: 5,000 units Ceftriaxone Sodium 2 gm/ (Sodium Chloride) 100 mls @ 100 mls/hr IVPB Q24H [facility] Stop: 06/23/18 20:29 Last Admin: 06/11/18 19:45 Dose: 100 mls/hr Pantoprazole Sodium (Protonix Ec Tab) 40 mg PO DAILY [facility] Last Admin: 06/12/18 10:17 Dose: 40 mg Roflumilast (Daliresp) 500 mcg PO DAILY [facility] Last Admin: 06/12/18 10:16 Dose: 500 mcg Rosuvastatin Calcium (Crestor) 10 mg PO HS [facility] Last Admin: 06/11/18 22:24 Dose: 10 mg Tramadol HCl (Ultram) 50 mg PO TID PRN PRN Reason: Pain, moderate (4-7) Vitamin B Complex/Vitamin C (Berocca) 1 tab PO DAILY [facility] Last Admin: 06/12/18 10:16 Dose: 1 tab - Labs Labs: 06/10/18 12:06 06/12/18 07:26 PT 11.4 SECONDS (9.7-12.2) 06/10/18 12:06 INR 1.0 06/10/18 12:06 APTT 32 SECONDS (21-34) 06/10/18 12:06 - Head Exam Head Exam: NORMAL INSPECTION - Eye Exam Eye Exam: Normal appearance - ENT Exam ENT Exam: Mucous Membranes Moist - Respiratory Exam Respiratory Exam: Decreased Breath Sounds - Cardiovascular Exam Cardiovascular Exam: REGULAR RHYTHM, +S1, +S2 - GI/Abdominal Exam GI & Abdominal Exam: Soft, Normal Bowel Sounds - Extremities Exam Extremities Exam: Pedal Edema Assessment and Plan - Assessment and Plan (Free Text) Plan: Continue BiPAP IV steroids Abx Lasix O2 Breo Ellipta Bronchodilators DVT/GI prophalaxis
--- NOTE | 2018-06-12 14:43 | CP.PCM.PN ---
Subjective - Date & Time of Evaluation Date of Evaluation: 06/12/18 Time of Evaluation: 11:00 - Subjective Subjective: Podiatry - Dr. Morrell 83M seen and examined this AM for chronic LLE wound. Patient OOB in recliner, NAD. Reports SOB improving. No new lower extremity complaints. Dressing to bilateral LE clean/dry/intact with minimal strikethrough present to LLE. Denies n/v/f/d/c. Objective - Vital Signs/Intake and Output Vital Signs (last 24 hours): Temp Pulse Resp BP Pulse Ox 98.1 F 86 20 138/54 L 92 L 06/12/18 08:40 06/12/18 08:40 06/12/18 08:40 06/12/18 11:33 06/12/18 08:40 Intake and Output: 06/12/18 06/12/18 06:59 18:59 Intake Total 400 Output Total 450 Balance -50 - Medications Medications: Current Medications Albuterol/Ipratropium (Duoneb 3 Mg/0.5 Mg (3 Ml) Ud) 3 ml INH RQ6 [facility] Last Admin: 06/12/18 13:21 Dose: 3 ml Alprazolam (Xanax) 0.5 mg PO HS [facility] Amlodipine Besylate (Norvasc) 5 mg PO DAILY [facility] Last Admin: 06/12/18 10:16 Dose: 5 mg Clopidogrel Bisulfate (Plavix) 75 mg PO DAILY [facility] Last Admin: 06/12/18 10:16 Dose: 75 mg Fluticasone/Vilanterol (Breo Ellipta 100-25 Mcg Inh) 1 puff INH RQ24 [facility] Furosemide (Lasix) 60 mg IVP DAILY [facility] Last Admin: 06/12/18 11:33 Dose: 60 mg Heparin Sodium (Porcine) (Heparin) 5,000 units SC Q12 [facility] Last Admin: 06/12/18 10:17 Dose: 5,000 units Ceftriaxone Sodium 2 gm/ (Sodium Chloride) 100 mls @ 100 mls/hr IVPB Q24H [facility] Stop: 06/23/18 20:29 Last Admin: 06/11/18 19:45 Dose: 100 mls/hr Pantoprazole Sodium (Protonix Ec Tab) 40 mg PO DAILY [facility] Last Admin: 06/12/18 10:17 Dose: 40 mg Roflumilast (Daliresp) 500 mcg PO DAILY [facility] Last Admin: 06/12/18 10:16 Dose: 500 mcg Rosuvastatin Calcium (Crestor) 10 mg PO HS [facility] Last Admin: 06/11/18 22:24 Dose: 10 mg Tramadol HCl (Ultram) 50 mg PO TID PRN PRN Reason: Pain, moderate (4-7) Vitamin B Complex/Vitamin C (Berocca) 1 tab PO DAILY [facility] Last Admin: 06/12/18 10:16 Dose: 1 tab - Labs Labs: 06/10/18 12:06 06/12/18 07:26 PT 11.4 SECONDS (9.7-12.2) 06/10/18 12:06 INR 1.0 06/10/18 12:06 APTT 32 SECONDS (21-34) 06/10/18 12:06 - Constitutional Appears: Non-toxic, No Acute Distress - Extremities Exam Additional comments: VASC: DP and PT pulses nonpalpable b/l. CFT <3 seconds to digits. +1 pitting edema noted b/l. Temperature gradient warm to warm with no increase in warmth to left lateral leg wound. NEURO: Gross sensation diminished. DERM: Venous stasis dermatitis present to legs circumfirentially b/l. Venous s tasis wound noted to left lateral leg measuring approximately 8 x 6 cm with second wound more anterior measuring approximately 2 x 1 cm - both ulcers noted to have 100% granular base with serous drainage present; foul odor present. Weeping noted to areas of venous stasis dermatitis b/l. ORTHO: No pain on palpation to wound site. No pain upon calf squeeze b/l. - Neurological Exam Neurological Exam: Alert, Awake, Oriented x3 - Psychiatric Exam Psychiatric exam: Normal Affect, Normal Mood Assessment and Plan - Assessment and Plan (Free Text) Assessment: 83M with chronic LLE wound Plan: Patient seen and evaluated Discussed with attending, Dr. Morrell Afebbrody Local wound care provided: saline cleanse, xeroform, DSD; MERLENE b/l Continue abx per primary - Ceftriaxone Activity: WBAT Podiatry will continue to follow
--- NOTE | 2018-06-12 16:23 | CP.PCM.PN ---
Subjective - Date & Time of Evaluation Date of Evaluation: 06/12/18 Time of Evaluation: 16:19 - Subjective Subjective: events reviewed Objective - Vital Signs/Intake and Output Vital Signs (last 24 hours): Temp Pulse Resp BP Pulse Ox 98.1 F 83 20 138/54 L 92 L 06/12/18 08:40 06/12/18 10:00 06/12/18 08:40 06/12/18 11:33 06/12/18 08:40 Intake and Output: 06/12/18 06/12/18 06:59 18:59 Intake Total 400 Output Total 450 Balance -50 - Medications Medications: Current Medications Albuterol/Ipratropium (Duoneb 3 Mg/0.5 Mg (3 Ml) Ud) 3 ml INH RQ6 [facility] Last Admin: 06/12/18 13:21 Dose: 3 ml Alprazolam (Xanax) 0.5 mg PO HS [facility] Amlodipine Besylate (Norvasc) 5 mg PO DAILY [facility] Last Admin: 06/12/18 10:16 Dose: 5 mg Clopidogrel Bisulfate (Plavix) 75 mg PO DAILY [facility] Last Admin: 06/12/18 10:16 Dose: 75 mg Fluticasone/Vilanterol (Breo Ellipta 100-25 Mcg Inh) 1 puff INH RQ24 [facility] Furosemide (Lasix) 60 mg IVP DAILY [facility] Last Admin: 06/12/18 11:33 Dose: 60 mg Heparin Sodium (Porcine) (Heparin) 5,000 units SC Q12 [facility] Last Admin: 06/12/18 10:17 Dose: 5,000 units Ceftriaxone Sodium 2 gm/ (Sodium Chloride) 100 mls @ 100 mls/hr IVPB Q24H [facility] Stop: 06/23/18 20:29 Last Admin: 06/11/18 19:45 Dose: 100 mls/hr Pantoprazole Sodium (Protonix Ec Tab) 40 mg PO DAILY [facility] Last Admin: 06/12/18 10:17 Dose: 40 mg Roflumilast (Daliresp) 500 mcg PO DAILY [facility] Last Admin: 06/12/18 10:16 Dose: 500 mcg Rosuvastatin Calcium (Crestor) 10 mg PO HS [facility] Last Admin: 06/11/18 22:24 Dose: 10 mg Tramadol HCl (Ultram) 50 mg PO TID PRN PRN Reason: Pain, moderate (4-7) Vitamin B Complex/Vitamin C (Berocca) 1 tab PO DAILY [facility] Last Admin: 06/12/18 10:16 Dose: 1 tab - Labs Labs: 06/10/18 12:06 06/12/18 07:26 PT 11.4 SECONDS (9.7-12.2) 06/10/18 12:06 INR 1.0 06/10/18 12:06 APTT 32 SECONDS (21-34) 06/10/18 12:06 Assessment and Plan - Assessment and Plan (Free Text) Assessment: Physical Exam - Constitutional Appears: Well, Non-toxic, Unkempt - Head Exam Head Exam: ATRAUMATIC, NORMAL INSPECTION, NORMOCEPHALIC - Eye Exam Eye Exam: PERRL. absent: Scleral icterus - ENT Exam ENT Exam: Mucous Membranes Dry, Normal External Ear Exam - Neck Exam Neck exam: Positive for: Full Rom. Negative for: Lymphadenopathy - Respiratory Exam Respiratory Exam: Accessory Muscle Use, Rhonchi, Wheezes - Cardiovascular Exam Cardiovascular Exam: REGULAR RHYTHM, RRR, +S1, +S2. absent: JVD Additional comments: Chronic venous stasis dermatitis, UNNA boots intact - GI/Abdominal Exam GI & Abdominal Exam: Normal Bowel Sounds. absent: Organomegaly - Extremities Exam Extremities exam: Positive for: pedal edema. Negative for: calf tenderness - Neurological Exam Neurological exam: CN II-XII Intact, Oriented x3 - Psychiatric Exam Psychiatric exam: Normal Mood Additional comments: Pschizoid affect - EKG Data EKG Interpreted by: Myself EKG shows normal: Sinus rhythm Rate: Normal (V pacing, ) - Imaging and Cardiology Chest x-ray Status: Image reviewed by me Additional comment: Poor inspirtory effort, pleural effusions; PPM CT scan - chest Status: Image reviewed by me Additional comment: Right lower lobe infiltrate; possible pulmonary edema, Large volume of atheroma; Pacing wires Assessment & Plan - Assessment and Plan (Free Text) Assessment: 83 year old man with syncope likely due to over diuresis; hold diuretics today Metabolic alkalosis from contraction, consider diamox to be added to low dose of diuretic for chronic fluid management of COPD COPD bipap encourage compliance; bronchodilators ASHD high dose statin dual anti platelet therapy 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
--- NOTE | 2018-06-12 18:11 | CP.PCM.PN ---
Subjective - Date & Time of Evaluation Date of Evaluation: 06/12/18 Time of Evaluation: 09:45 - Subjective Subjective: clinically same Objective - Vital Signs/Intake and Output Vital Signs (last 24 hours): Temp Pulse Resp BP Pulse Ox 98.1 F 83 20 138/54 L 92 L 06/12/18 08:40 06/12/18 10:00 06/12/18 08:40 06/12/18 11:33 06/12/18 08:40 Intake and Output: 06/12/18 06/12/18 06:59 18:59 Intake Total 400 Output Total 450 Balance -50 - Medications Medications: Current Medications Albuterol/Ipratropium (Duoneb 3 Mg/0.5 Mg (3 Ml) Ud) 3 ml INH RQ6 [facility] Last Admin: 06/12/18 13:21 Dose: 3 ml Alprazolam (Xanax) 0.5 mg PO HS [facility] Amlodipine Besylate (Norvasc) 5 mg PO DAILY [facility] Last Admin: 06/12/18 10:16 Dose: 5 mg Clopidogrel Bisulfate (Plavix) 75 mg PO DAILY [facility] Last Admin: 06/12/18 10:16 Dose: 75 mg Fluticasone/Vilanterol (Breo Ellipta 100-25 Mcg Inh) 1 puff INH RQ24 [facility] Furosemide (Lasix) 60 mg IVP DAILY [facility] Last Admin: 06/12/18 11:33 Dose: 60 mg Heparin Sodium (Porcine) (Heparin) 5,000 units SC Q12 [facility] Last Admin: 06/12/18 10:17 Dose: 5,000 units Ceftriaxone Sodium 2 gm/ (Sodium Chloride) 100 mls @ 100 mls/hr IVPB Q24H [facility] Stop: 06/23/18 20:29 Last Admin: 06/11/18 19:45 Dose: 100 mls/hr Pantoprazole Sodium (Protonix Ec Tab) 40 mg PO DAILY [facility] Last Admin: 06/12/18 10:17 Dose: 40 mg Roflumilast (Daliresp) 500 mcg PO DAILY [facility] Last Admin: 06/12/18 10:16 Dose: 500 mcg Rosuvastatin Calcium (Crestor) 10 mg PO HS [facility] Last Admin: 06/11/18 22:24 Dose: 10 mg Tramadol HCl (Ultram) 50 mg PO TID PRN PRN Reason: Pain, moderate (4-7) Vitamin B Complex/Vitamin C (Berocca) 1 tab PO DAILY [facility] Last Admin: 06/12/18 10:16 Dose: 1 tab - Labs Labs: 06/10/18 12:06 06/12/18 07:26 PT 11.4 SECONDS (9.7-12.2) 06/10/18 12:06 INR 1.0 06/10/18 12:06 APTT 32 SECONDS (21-34) 06/10/18 12:06 - Constitutional Appears: Well - Head Exam Head Exam: ATRAUMATIC, NORMAL INSPECTION, NORMOCEPHALIC - Eye Exam Eye Exam: EOMI, Normal appearance, PERRL Pupil Exam: NORMAL ACCOMODATION, PERRL - ENT Exam ENT Exam: Mucous Membranes Moist, Normal Exam - Neck Exam Neck Exam: Full ROM, Normal Inspection. absent: Lymphadenopathy - Respiratory Exam Respiratory Exam: Decreased Breath Sounds - Cardiovascular Exam Cardiovascular Exam: REGULAR RHYTHM, +S1, +S2 - GI/Abdominal Exam GI & Abdominal Exam: Soft, Diminished Bowel Sounds - Rectal Exam Rectal Exam: Deferred
[2018-06-12] MEDS: cefTRIAXone 2 GM in Sodium Chloride 0.9% 100 ML IVPB SCH (20:16)
[2018-06-13] MEDS: Albuterol-Ipratrop 3 mg / 0.5 (3 ml) UD INH SCH ×4 (01:09→20:12)
--- NOTE | 2018-06-13 10:58 | CP.PCM.PN ---
Subjective - Date & Time of Evaluation Date of Evaluation: 06/13/18 Time of Evaluation: 10:58 - Subjective Subjective: Podiatry - Dr. Morrell 83M seen and examined this AM for chronic LLE wound. Patient OOB in recliner, NAD. No new LE complaints. Dressings clean/dry/intact. Swelling in lower legs improving. Denies n/v/d, no f/c. Objective - Vital Signs/Intake and Output Vital Signs (last 24 hours): Temp Pulse Resp BP Pulse Ox 98.4 F 77 20 124/47 L 95 06/12/18 23:30 06/12/18 23:50 06/12/18 23:30 06/12/18 23:30 06/12/18 23:30 Intake and Output: 06/13/18 06/13/18 06:59 18:59 Intake Total 340 Output Total 1050 Balance -710 - Medications Medications: Current Medications Albuterol/Ipratropium (Duoneb 3 Mg/0.5 Mg (3 Ml) Ud) 3 ml INH RQ6 [facility] Last Admin: 06/13/18 07:37 Dose: 3 ml Alprazolam (Xanax) 0.5 mg PO HS [facility] Last Admin: 06/12/18 21:14 Dose: 0.5 mg Amlodipine Besylate (Norvasc) 5 mg PO DAILY [facility] Last Admin: 06/12/18 10:16 Dose: 5 mg Clopidogrel Bisulfate (Plavix) 75 mg PO DAILY [facility] Last Admin: 06/12/18 10:16 Dose: 75 mg Fluticasone/Vilanterol (Breo Ellipta 100-25 Mcg Inh) 1 puff INH RQ24 [facility] Furosemide (Lasix) 60 mg IVP DAILY [facility] Last Admin: 06/12/18 11:33 Dose: 60 mg Heparin Sodium (Porcine) (Heparin) 5,000 units SC Q12 [facility] Last Admin: 06/12/18 21:15 Dose: 5,000 units Ceftriaxone Sodium 2 gm/ (Sodium Chloride) 100 mls @ 100 mls/hr IVPB Q24H [facility] Stop: 06/23/18 20:29 Last Admin: 06/12/18 20:16 Dose: 100 mls/hr Pantoprazole Sodium (Protonix Ec Tab) 40 mg PO DAILY [facility] Last Admin: 06/12/18 10:17 Dose: 40 mg Roflumilast (Daliresp) 500 mcg PO DAILY [facility] Last Admin: 06/12/18 10:16 Dose: 500 mcg Rosuvastatin Calcium (Crestor) 10 mg PO HS [facility] Last Admin: 06/12/18 21:14 Dose: 10 mg Tramadol HCl (Ultram) 50 mg PO TID PRN PRN Reason: Pain, moderate (4-7) Vitamin B Complex/Vitamin C (Berocca) 1 tab PO DAILY [facility] Last Admin: 06/12/18 10:16 Dose: 1 tab - Labs Labs: 06/10/18 12:06 06/12/18 07:26 PT 11.4 SECONDS (9.7-12.2) 06/10/18 12:06 INR 1.0 06/10/18 12:06 APTT 32 SECONDS (21-34) 06/10/18 12:06 - Constitutional Appears: Well, Non-toxic, No Acute Distress - Extremities Exam Additional comments: VASC: DP and PT pulses nonpalpable b/l. CFT <3 seconds to digits. +1 pitting edema noted b/l. Temperature gradient warm to warm with no increase in warmth to left lateral leg wound. NEURO: Gross sensation diminished. DERM: Venous stasis dermatitis present to legs circumfirentially b/l. Venous stasis wound noted to left lateral leg measuring approximately 8 x 6 cm with second wound more anterior measuring approximately 2 x 1 cm - both ulcers noted to have 100% granular base with serous drainage present; foul odor present. Weeping noted to areas of venous stasis dermatitis b/l. ORTHO: No pain on palpation to wound site. No pain upon calf squeeze b/l. - Neurological Exam Neurological Exam: Alert, Awake, Oriented x3 - Psychiatric Exam Psychiatric exam: Normal Affect, Normal Mood Assessment and Plan - Assessment and Plan (Free Text) Assessment: 83M with chronic venous stasis ulcerations LLE Plan: Patient seen and evaluated with attending, Dr. Morrell Afebripb Local wound care provided: saline cleanse, xeroform, DSD; MERLENE b/l Continue abx per primary - Ceftriaxone Activity: WBAT Podiatry will continue to follow
[2018-06-13] MEDS: Pantoprazole 40 mg EC Tab PO SCH (11:05)
[2018-06-13] MEDS: Vitamin B Complex/Vitamin C Tab PO SCH (11:05)
--- NOTE | 2018-06-13 13:45 | CP.PCM.PN ---
Subjective - Date & Time of Evaluation Date of Evaluation: 06/13/18 Time of Evaluation: 13:45 - Subjective Subjective: Pt is seen and examined No events overnight Objective - Vital Signs/Intake and Output Vital Signs (last 24 hours): Temp Pulse Resp BP Pulse Ox 97.4 F L 74 20 123/59 L 97 06/13/18 11:24 06/13/18 11:24 06/13/18 11:24 06/13/18 11:57 06/13/18 11:24 Intake and Output: 06/13/18 06/13/18 06:59 18:59 Intake Total 340 Output Total 1050 Balance -710 - Medications Medications: Current Medications Albuterol/Ipratropium (Duoneb 3 Mg/0.5 Mg (3 Ml) Ud) 3 ml INH RQ6 [facility] Last Admin: 06/13/18 13:08 Dose: 3 ml Alprazolam (Xanax) 0.5 mg PO HS [facility] Last Admin: 06/12/18 21:14 Dose: 0.5 mg Amlodipine Besylate (Norvasc) 5 mg PO DAILY [facility] Last Admin: 06/13/18 11:06 Dose: 5 mg Clopidogrel Bisulfate (Plavix) 75 mg PO DAILY [facility] Last Admin: 06/13/18 11:05 Dose: 75 mg Fluticasone/Vilanterol (Breo Ellipta 100-25 Mcg Inh) 1 puff INH RQ24 [facility] Furosemide (Lasix) 60 mg IVP DAILY [facility] Last Admin: 06/13/18 11:57 Dose: 60 mg Heparin Sodium (Porcine) (Heparin) 5,000 units SC Q12 [facility] Last Admin: 06/13/18 11:06 Dose: 5,000 units Ceftriaxone Sodium 2 gm/ (Sodium Chloride) 100 mls @ 100 mls/hr IVPB Q24H [facility] Stop: 06/23/18 20:29 Last Admin: 06/12/18 20:16 Dose: 100 mls/hr Pantoprazole Sodium (Protonix Ec Tab) 40 mg PO DAILY [facility] Last Admin: 06/13/18 11:05 Dose: 40 mg Roflumilast (Daliresp) 500 mcg PO DAILY [facility] Last Admin: 06/13/18 11:57 Dose: 500 mcg Rosuvastatin Calcium (Crestor) 10 mg PO HS [facility] Last Admin: 06/12/18 21:14 Dose: 10 mg Tramadol HCl (Ultram) 50 mg PO TID PRN PRN Reason: Pain, moderate (4-7) Vitamin B Complex/Vitamin C (Berocca) 1 tab PO DAILY [facility] Last Admin: 06/13/18 11:05 Dose: 1 tab - Labs Labs: 06/10/18 12:06 06/12/18 07:26 PT 11.4 SECONDS (9.7-12.2) 06/10/18 12:06 INR 1.0 06/10/18 12:06 APTT 32 SECONDS (21-34) 06/10/18 12:06 - Head Exam Head Exam: NORMAL INSPECTION - Eye Exam Eye Exam: Normal appearance - ENT Exam ENT Exam: Mucous Membranes Moist - Respiratory Exam Respiratory Exam: Decreased Breath Sounds - Cardiovascular Exam Cardiovascular Exam: REGULAR RHYTHM, +S1, +S2 - GI/Abdominal Exam GI & Abdominal Exam: Soft, Normal Bowel Sounds - Neurological Exam Neurological Exam: Alert Assessment and Plan (1) Respiratory failure with hypoxia and hypercapnia Status: Acute (2) Acute exacerbation of CHF (congestive heart failure) Status: Acute (3) Dyspnea Status: Acute (4) COPD (chronic obstructive pulmonary disease) Status: Chronic - Assessment and Plan (Free Text) Assessment: BiPAP as needed IV steroids Serial ABG's Abx Lasix O2 Breo Ellipta Bronchodilators DVT/GI prophalaxis
[2018-06-13 14:22] LABS: CALCIUM 8.7 mg/dl (8.6-10.4)
--- NOTE | 2018-06-13 17:33 | CP.PCM.PN ---
Subjective - Date & Time of Evaluation Date of Evaluation: 06/13/18 Time of Evaluation: 09:30 - Subjective Subjective: clinically same Objective - Vital Signs/Intake and Output Vital Signs (last 24 hours): Temp Pulse Resp BP Pulse Ox 98.7 F 82 18 113/56 L 96 06/13/18 15:00 06/13/18 15:00 06/13/18 15:00 06/13/18 15:00 06/13/18 15:00 Intake and Output: 06/13/18 06/13/18 06:59 18:59 Intake Total 340 200 Output Total 1050 825 Balance -458 -946 - Medications Medications: Current Medications Albuterol/Ipratropium (Duoneb 3 Mg/0.5 Mg (3 Ml) Ud) 3 ml INH RQ6 [facility] Last Admin: 06/13/18 13:08 Dose: 3 ml Alprazolam (Xanax) 0.5 mg PO HS [facility] Last Admin: 06/12/18 21:14 Dose: 0.5 mg Amlodipine Besylate (Norvasc) 5 mg PO DAILY [facility] Last Admin: 06/13/18 11:06 Dose: 5 mg Clopidogrel Bisulfate (Plavix) 75 mg PO DAILY [facility] Last Admin: 06/13/18 11:05 Dose: 75 mg Fluticasone/Vilanterol (Breo Ellipta 100-25 Mcg Inh) 1 puff INH RQ24 [facility] Furosemide (Lasix) 60 mg IVP DAILY [facility] Last Admin: 06/13/18 11:57 Dose: 60 mg Heparin Sodium (Porcine) (Heparin) 5,000 units SC Q12 [facility] Last Admin: 06/13/18 11:06 Dose: 5,000 units Ceftriaxone Sodium 2 gm/ (Sodium Chloride) 100 mls @ 100 mls/hr IVPB Q24H [facility] Stop: 06/23/18 20:29 Last Admin: 06/12/18 20:16 Dose: 100 mls/hr Pantoprazole Sodium (Protonix Ec Tab) 40 mg PO DAILY [facility] Last Admin: 06/13/18 11:05 Dose: 40 mg Roflumilast (Daliresp) 500 mcg PO DAILY [facility] Last Admin: 06/13/18 11:57 Dose: 500 mcg Rosuvastatin Calcium (Crestor) 10 mg PO HS [facility] Last Admin: 06/12/18 21:14 Dose: 10 mg Tramadol HCl (Ultram) 50 mg PO TID PRN PRN Reason: Pain, moderate (4-7) Vitamin B Complex/Vitamin C (Berocca) 1 tab PO DAILY [facility] Last Admin: 06/13/18 11:05 Dose: 1 tab - Labs Labs: 06/10/18 12:06 06/13/18 13:59 PT 11.4 SECONDS (9.7-12.2) 06/10/18 12:06 INR 1.0 06/10/18 12:06 APTT 32 SECONDS (21-34) 06/10/18 12:06 - Constitutional Appears: Well - Head Exam Head Exam: ATRAUMATIC, NORMAL INSPECTION, NORMOCEPHALIC - Eye Exam Eye Exam: EOMI, Normal appearance, PERRL Pupil Exam: NORMAL ACCOMODATION, PERRL - ENT Exam ENT Exam: Mucous Membranes Moist, Normal Exam - Neck Exam Neck Exam: Full ROM, Normal Inspection. absent: Lymphadenopathy - Respiratory Exam Respiratory Exam: Decreased Breath Sounds - Cardiovascular Exam Cardiovascular Exam: REGULAR RHYTHM, +S1, +S2 - GI/Abdominal Exam GI & Abdominal Exam: Soft, Diminished Bowel Sounds - Rectal Exam Rectal Exam: Deferred
--- NOTE | 2018-06-13 18:06 | CARD ---
APPROVED REPORT Date of service: 06/13/2018 EXAM: Two-dimensional and M-mode echocardiogram with Doppler and color Doppler. Other Information Quality : TDSRhythm : INDICATION Dyspnea Cardiac Disease: CAD Congestive Heart Failure COPD RISK FACTORS Hypertension 2D DIMENSIONS IVSd1.1 (0.7-1.1cm)LVDd6.0 (3.9-5.9cm) PWd0.8 (0.7-1.1cm)LA [id number] (18-58mL) LVDs4.7 (2.5-4.0cm)FS (%) 21.9 % LVEF (%)43.5 (>50%)LVEF (Arndt's)50.68 % M-Mode DIMENSIONS Left Atrium (MM)5.06 (2.5-4.0cm)IVSd1.23 (0.7-1.1cm) Aortic Root4.11 (2.2-3.7cm)LVDd7.38 (4.0-5.6cm) Aortic Cusp Exc.2.34 (1.5-2.0cm)PWd1.31 (0.7-1.1cm) FS (%) 26 %LVDs5.48 (2.0-3.8cm) LVEF (%)49 (>50%) Mitral Valve MV E Fdjbtzmv007.1cm/sMV A Eeqfirce035.7cm/sE/A ratio0.9 TDI Lateral E' Peak V4.78cm/sMedial E' Peak V4.87cm/sE/Lateral E'30.6 E/Medial E'30.0 Tricuspid Valve TR Peak Jvxwfffy039vo/sTR Peak Gr.[id number] LEFT VENTRICLE The Left Ventricle is borderline dilated. There is normal left ventricular wall thickness. The systolic function is mildly impaired. Infero-Lateral hypokinesis No left ventricle thrombus noted on this study. RIGHT VENTRICLE The right ventricle is normal size. There is normal right ventricular wall thickness. The right ventricular systolic function is normal. There is a pacemaker lead in the right ventricle. ATRIA The left atrium is moderately dilated. The right atrium is mildly dilated. AORTIC VALVE The aortic valve is not well visualized. No aortic regurgitation is present. There is no aortic valvular stenosis. MITRAL VALVE The mitral valve is not well visualized. There is no mitral valve stenosis. Mitral regurgitation is trace. TRICUSPID VALVE There is moderate tricuspid regurgitation. There is moderate to severe pulmonary hypertension. PULMONIC VALVE There is trace pulmonic valvular regurgitation. GREAT VESSELS The aortic root is normal in size. <Conclusion> The Left Ventricle is borderline dilated. There is normal left ventricular wall thickness. The systolic function is mildly impaired. Infero-Lateral hypokinesis There is moderate tricuspid regurgitation. There is moderate to severe pulmonary hypertension.
[2018-06-13] MEDS: cefTRIAXone 2 GM in Sodium Chloride 0.9% 100 ML IVPB SCH (19:02)
--- NOTE | 2018-06-14 00:15 | CP.PCM.PN ---
Subjective - Date & Time of Evaluation Date of Evaluation: 06/14/18 Time of Evaluation: 07:00 - Subjective Subjective: Events reviewed Echo not peformed yet. Objective - Vital Signs/Intake and Output Vital Signs (last 24 hours): Temp Pulse Resp BP Pulse Ox 98.7 F 82 18 113/56 L 96 06/13/18 15:00 06/13/18 15:00 06/13/18 15:00 06/13/18 15:00 06/13/18 15:00 Intake and Output: 06/13/18 06/14/18 18:59 06:59 Intake Total 200 Output Total 825 Balance -625 - Medications Medications: Current Medications Albuterol/Ipratropium (Duoneb 3 Mg/0.5 Mg (3 Ml) Ud) 3 ml INH RQ6 [facility] Last Admin: 06/13/18 20:12 Dose: 3 ml Alprazolam (Xanax) 0.5 mg PO HS [facility] Last Admin: 06/13/18 22:30 Dose: 0.5 mg Amlodipine Besylate (Norvasc) 5 mg PO DAILY [facility] Last Admin: 06/13/18 11:06 Dose: 5 mg Clopidogrel Bisulfate (Plavix) 75 mg PO DAILY [facility] Last Admin: 06/13/18 11:05 Dose: 75 mg Fluticasone/Vilanterol (Breo Ellipta 100-25 Mcg Inh) 1 puff INH RQ24 [facility] Furosemide (Lasix) 60 mg IVP DAILY [facility] Last Admin: 06/13/18 11:57 Dose: 60 mg Heparin Sodium (Porcine) (Heparin) 5,000 units SC Q12 [facility] Last Admin: 06/13/18 22:23 Dose: 5,000 units Ceftriaxone Sodium 2 gm/ (Sodium Chloride) 100 mls @ 100 mls/hr IVPB Q24H [facility] Stop: 06/23/18 20:29 Last Admin: 06/13/18 19:02 Dose: 100 mls/hr Pantoprazole Sodium (Protonix Ec Tab) 40 mg PO DAILY [facility] Last Admin: 06/13/18 11:05 Dose: 40 mg Roflumilast (Daliresp) 500 mcg PO DAILY [facility] Last Admin: 06/13/18 11:57 Dose: 500 mcg Rosuvastatin Calcium (Crestor) 10 mg PO HS [facility] Last Admin: 06/13/18 22:23 Dose: 10 mg Tramadol HCl (Ultram) 50 mg PO TID PRN PRN Reason: Pain, moderate (4-7) Vitamin B Complex/Vitamin C (Berocca) 1 tab PO DAILY [facility] Last Admin: 06/13/18 11:05 Dose: 1 tab - Labs Labs: 06/10/18 12:06 06/13/18 13:59 PT 11.4 SECONDS (9.7-12.2) 06/10/18 12:06 INR 1.0 06/10/18 12:06 APTT 32 SECONDS (21-34) 06/10/18 12:06 Assessment and Plan - Assessment and Plan (Free Text) Assessment: Physical Exam - Constitutional Appears: Well, Non-toxic, Unkempt - Head Exam Head Exam: ATRAUMATIC, NORMAL INSPECTION, NORMOCEPHALIC - Eye Exam Eye Exam: PERRL. absent: Scleral icterus - ENT Exam ENT Exam: Mucous Membranes Dry, Normal External Ear Exam - Neck Exam Neck exam: Positive for: Full Rom. Negative for: Lymphadenopathy - Respiratory Exam Respiratory Exam: Accessory Muscle Use, Rhonchi, Wheezes - Cardiovascular Exam Cardiovascular Exam: REGULAR RHYTHM, RRR, +S1, +S2. absent: JVD Additional comments: Chronic venous stasis dermatitis, UNNA boots intact - GI/Abdominal Exam GI & Abdominal Exam: Normal Bowel Sounds. absent: Organomegaly - Extremities Exam Extremities exam: Positive for: pedal edema. Negative for: calf tenderness - Neurological Exam Neurological exam: CN II-XII Intact, Oriented x3 - Psychiatric Exam Psychiatric exam: Normal Mood Additional comments: Pschizoid affect - EKG Data EKG Interpreted by: Myself EKG shows normal: Sinus rhythm Rate: Normal (V pacing, ) - Imaging and Cardiology Chest x-ray Status: Image reviewed by me Additional comment: Poor inspirtory effort, pleural effusions; PPM CT scan - chest Status: Image reviewed by me Additional comment: Right lower lobe infiltrate; possible pulmonary edema, Large volume of atherom a; Pacing wires Assessment & Plan - Assessment and Plan (Free Text) Assessment: 83 year old man chronic diastolic CHF on lasix Metabolic alkalosis from contraction, consider diamox to be added to diuretic for chronic fluid management of COPD COPD bipap encourage compliance; bronchodilators ASHD high dose statin dual anti platelet therapy 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
[2018-06-14] MEDS: Albuterol-Ipratrop 3 mg / 0.5 (3 ml) UD INH SCH ×4 (02:29→19:52)
[2018-06-14] MEDS: Vitamin B Complex/Vitamin C Tab PO SCH (09:33)
[2018-06-14] MEDS: Pantoprazole 40 mg EC Tab PO SCH (09:33)
--- NOTE | 2018-06-14 11:27 | CP.PCM.PN ---
Subjective - Date & Time of Evaluation Date of Evaluation: 06/14/18 Time of Evaluation: 11:25 - Subjective Subjective: 83 y/o man admitted 06/10/18 for acute on chronic worsening of SOB and reported non-compliance with CPAP - also with acute on chronic LE edema with hx of chronic venous stasis dermatitis PMHX: PPM for CHB remains consistent V. pacing Overall feeling better. Denies CP, reports breathing is better Objective - Vital Signs/Intake and Output Vital Signs (last 24 hours): Temp Pulse Resp BP Pulse Ox 99.1 F 82 20 126/64 89 L 06/14/18 07:00 06/14/18 07:00 06/14/18 07:00 06/14/18 09:34 06/14/18 07:00 Intake and Output: 06/14/18 06/14/18 06:59 18:59 Intake Total 610 Output Total 1300 Balance -690 - Medications Medications: Current Medications Albuterol/Ipratropium (Duoneb 3 Mg/0.5 Mg (3 Ml) Ud) 3 ml INH RQ6 [facility] Last Admin: 06/14/18 07:56 Dose: 3 ml Alprazolam (Xanax) 0.5 mg PO HS [facility] Last Admin: 06/13/18 22:30 Dose: 0.5 mg Amlodipine Besylate (Norvasc) 5 mg PO DAILY [facility] Last Admin: 06/14/18 09:33 Dose: 5 mg Clopidogrel Bisulfate (Plavix) 75 mg PO DAILY [facility] Last Admin: 06/14/18 09:34 Dose: 75 mg Fluticasone/Vilanterol (Breo Ellipta 100-25 Mcg Inh) 1 puff INH RQ24 [facility] Furosemide (Lasix) 60 mg IVP DAILY [facility] Last Admin: 06/14/18 09:34 Dose: 60 mg Ceftriaxone Sodium 2 gm/ (Sodium Chloride) 100 mls @ 100 mls/hr IVPB Q24H [facility] Stop: 06/23/18 20:29 Last Admin: 06/13/18 19:02 Dose: 100 mls/hr Pantoprazole Sodium (Protonix Ec Tab) 40 mg PO DAILY [facility] Last Admin: 06/14/18 09:33 Dose: 40 mg Roflumilast (Daliresp) 500 mcg PO DAILY [facility] Last Admin: 06/14/18 09:34 Dose: 500 mcg Rosuvastatin Calcium (Crestor) 10 mg PO HS [facility] Last Admin: 06/13/18 22:23 Dose: 10 mg Tramadol HCl (Ultram) 50 mg PO TID PRN PRN Reason: Pain, moderate (4-7) Vitamin B Complex/Vitamin C (Berocca) 1 tab PO DAILY [facility] Last Admin: 06/14/18 09:33 Dose: 1 tab - Labs Labs: 06/10/18 12:06 06/13/18 13:59 PT 11.4 SECONDS (9.7-12.2) 06/10/18 12:06 INR 1.0 06/10/18 12:06 APTT 32 SECONDS (21-34) 06/10/18 12:06 - Constitutional Appears: No Acute Distress, Chronically Ill - Head Exam Head Exam: ATRAUMATIC, NORMAL INSPECTION, NORMOCEPHALIC - Eye Exam Eye Exam: EOMI, Normal appearance. absent: Scleral icterus - ENT Exam ENT Exam: Mucous Membranes Moist - Neck Exam Neck Exam: Full ROM, Normal Inspection. absent: Tenderness, Thyromegaly - Respiratory Exam Respiratory Exam: Decreased Breath Sounds, NORMAL BREATHING PATTERN Additional comments: bibasilar crep and interstitial breath sounds - Cardiovascular Exam Cardiovascular Exam: REGULAR RHYTHM, +S1, +S2. absent: Murmur - GI/Abdominal Exam GI & Abdominal Exam: Distended, Soft, Normal Bowel Sounds. absent: Tenderness - Extremities Exam Additional comments: CEAP 5=6 venous stasis dermatitis in legs warm + edema dressing in legs dry/intact - Neurological Exam Neurological Exam: Alert, Awake, Oriented x3 - Psychiatric Exam Psychiatric exam: Normal Affect, Normal Mood - Skin Skin Exam: Rash Assessment and Plan - Assessment and Plan (Free Text) Assessment: 83 y/o with hx CAD (PCI >3 years ago per patient) PPM for probable bradycardia Hx of heavy smoking Non-compliant with CPAP Morbid Obesity Venous stasis disease in legs Stage 3 CKD creat 1.5, GFR 43 Presented with SOB and hypercapnea Sxs improved Echo done: Images viewed by me low-normal LVEF, no high grade wall motion abnor malities, Diastolic dysfunction with elevated filling pressures, dilated IVC and mod-sev PULM HTN. Sxs are c/w acute on chronic lung disease and ABE/Cor Pulmonale Based on echo he remains volume overloaded for which diuretics should be continued with consideration for diamox. Continue agreessive wound care, CPAP titration, DVT prophylaxis CAD: stable on DAPT and statin, consider addition of imdur and ranexa PPM: 100% V. pacing may contribute to mild LV dysfunction....can consider upgrade to BiV pacing if sxs of SOB not improving.
--- NOTE | 2018-06-14 14:47 | CP.PCM.PN ---
Subjective - Date & Time of Evaluation Date of Evaluation: 06/14/18 Time of Evaluation: 14:45 - Subjective Subjective: Podiatry - Dr. Morrell 83M seen and examined this AM for chronic LLE wound. NAD. No new LE complaints. Dressings clean/dry/intact. Lower extremity swelling continuing to improve. Denies n/v/d, no f/c. Objective - Vital Signs/Intake and Output Vital Signs (last 24 hours): Temp Pulse Resp BP Pulse Ox 99.1 F 78 20 126/64 89 L 06/14/18 07:00 06/14/18 07:00 06/14/18 07:00 06/14/18 09:34 06/14/18 07:00 Intake and Output: 06/14/18 06/14/18 06:59 18:59 Intake Total 610 Output Total 1300 Balance -690 - Medications Medications: Current Medications Albuterol/Ipratropium (Duoneb 3 Mg/0.5 Mg (3 Ml) Ud) 3 ml INH RQ6 [facility] Last Admin: 06/14/18 13:28 Dose: 3 ml Alprazolam (Xanax) 0.5 mg PO HS [facility] Last Admin: 06/13/18 22:30 Dose: 0.5 mg Amlodipine Besylate (Norvasc) 5 mg PO DAILY [facility] Last Admin: 06/14/18 09:33 Dose: 5 mg Clopidogrel Bisulfate (Plavix) 75 mg PO DAILY [facility] Last Admin: 06/14/18 09:34 Dose: 75 mg Fluticasone/Vilanterol (Breo Ellipta 100-25 Mcg Inh) 1 puff INH RQ24 [facility] Furosemide (Lasix) 60 mg IVP DAILY [facility] Last Admin: 06/14/18 09:34 Dose: 60 mg Ceftriaxone Sodium 2 gm/ (Sodium Chloride) 100 mls @ 100 mls/hr IVPB Q24H [facility] Stop: 06/23/18 20:29 Last Admin: 06/13/18 19:02 Dose: 100 mls/hr Pantoprazole Sodium (Protonix Ec Tab) 40 mg PO DAILY [facility] Last Admin: 06/14/18 09:33 Dose: 40 mg Roflumilast (Daliresp) 500 mcg PO DAILY [facility] Last Admin: 06/14/18 09:34 Dose: 500 mcg Rosuvastatin Calcium (Crestor) 10 mg PO HS [facility] Last Admin: 06/13/18 22:23 Dose: 10 mg Tramadol HCl (Ultram) 50 mg PO TID PRN PRN Reason: Pain, moderate (4-7) Vitamin B Complex/Vitamin C (Berocca) 1 tab PO DAILY [facility] Last Admin: 06/14/18 09:33 Dose: 1 tab - Labs Labs: 06/10/18 12:06 06/13/18 13:59 PT 11.4 SECONDS (9.7-12.2) 06/10/18 12:06 INR 1.0 06/10/18 12:06 APTT 32 SECONDS (21-34) 06/10/18 12:06 - Constitutional Appears: Non-toxic, No Acute Distress - Extremities Exam Additional comments: Dressings to bilateral LE clean/dry/intact with no strikethrough present Neurovascular status intact to digits Digital ROM present - Neurological Exam Neurological Exam: Alert, Awake, Oriented x3 - Psychiatric Exam Psychiatric exam: Normal Affect, Normal Mood Assessment and Plan - Assessment and Plan (Free Text) Assessment: 83M with chronic venous stasis ulcerations LLE Plan: Patient seen and evaluated with attending, Dr. Morrell Afebrile Continue local wound care - saline cleanse, xeroform, DSD; MERLENE b/l Continue abx per primary - Ceftriaxone Activity: WBAT Podiatry will continue to follow
--- NOTE | 2018-06-14 16:49 | CP.PCM.PN ---
Subjective - Date & Time of Evaluation Date of Evaluation: 06/14/18 Time of Evaluation: 16:48 - Subjective Subjective: Pt is seen and examined No events overnight Objective - Vital Signs/Intake and Output Vital Signs (last 24 hours): Temp Pulse Resp BP Pulse Ox 97.9 F 84 20 119/50 L 96 06/14/18 15:00 06/14/18 15:00 06/14/18 15:00 06/14/18 15:00 06/14/18 15:00 Intake and Output: 06/14/18 06/14/18 06:59 18:59 Intake Total 610 Output Total 1300 Balance -690 - Medications Medications: Current Medications Albuterol/Ipratropium (Duoneb 3 Mg/0.5 Mg (3 Ml) Ud) 3 ml INH RQ6 [facility] Last Admin: 06/14/18 13:28 Dose: 3 ml Alprazolam (Xanax) 0.5 mg PO HS [facility] Last Admin: 06/13/18 22:30 Dose: 0.5 mg Amlodipine Besylate (Norvasc) 5 mg PO DAILY [facility] Last Admin: 06/14/18 09:33 Dose: 5 mg Clopidogrel Bisulfate (Plavix) 75 mg PO DAILY [facility] Last Admin: 06/14/18 09:34 Dose: 75 mg Fluticasone/Vilanterol (Breo Ellipta 100-25 Mcg Inh) 1 puff INH RQ24 [facility] Furosemide (Lasix) 60 mg IVP DAILY [facility] Last Admin: 06/14/18 09:34 Dose: 60 mg Ceftriaxone Sodium 2 gm/ (Sodium Chloride) 100 mls @ 100 mls/hr IVPB Q24H [facility] Stop: 06/23/18 20:29 Last Admin: 06/13/18 19:02 Dose: 100 mls/hr Pantoprazole Sodium (Protonix Ec Tab) 40 mg PO DAILY [facility] Last Admin: 06/14/18 09:33 Dose: 40 mg Roflumilast (Daliresp) 500 mcg PO DAILY [facility] Last Admin: 06/14/18 09:34 Dose: 500 mcg Rosuvastatin Calcium (Crestor) 10 mg PO HS [facility] Last Admin: 06/13/18 22:23 Dose: 10 mg Tramadol HCl (Ultram) 50 mg PO TID PRN PRN Reason: Pain, moderate (4-7) Vitamin B Complex/Vitamin C (Berocca) 1 tab PO DAILY [facility] Last Admin: 06/14/18 09:33 Dose: 1 tab - Labs Labs: 06/10/18 12:06 06/13/18 13:59 PT 11.4 SECONDS (9.7-12.2) 06/10/18 12:06 INR 1.0 06/10/18 12:06 APTT 32 SECONDS (21-34) 06/10/18 12:06 - Head Exam Head Exam: NORMAL INSPECTION - Eye Exam Eye Exam: Normal appearance - ENT Exam ENT Exam: Mucous Membranes Moist - Respiratory Exam Respiratory Exam: Decreased Breath Sounds - Cardiovascular Exam Cardiovascular Exam: REGULAR RHYTHM, +S1, +S2 - GI/Abdominal Exam GI & Abdominal Exam: Soft, Normal Bowel Sounds - Neurological Exam Neurological Exam: Alert Assessment and Plan (1) Acute exacerbation of CHF (congestive heart failure) Status: Acute (2) Dyspnea Status: Acute (3) Respiratory failure with hypoxia and hypercapnia Status: Acute (4) COPD (chronic obstructive pulmonary disease) Status: Chronic - Assessment and Plan (Free Text) Plan: BiPAP as needed IV steroids Abx Lasix ABG O2 Breo Ellipta Bronchodilators DVT/GI prophalaxis
--- NOTE | 2018-06-14 18:37 | CP.PCM.PN ---
Subjective - Date & Time of Evaluation Date of Evaluation: 06/14/18 Time of Evaluation: 09:15 - Subjective Subjective: clinically same Objective - Vital Signs/Intake and Output Vital Signs (last 24 hours): Temp Pulse Resp BP Pulse Ox 97.9 F 72 20 119/50 L 96 06/14/18 15:00 06/14/18 16:00 06/14/18 15:00 06/14/18 15:00 06/14/18 15:00 Intake and Output: 06/14/18 06/14/18 06:59 18:59 Intake Total 610 Output Total 1300 Balance -690 - Medications Medications: Current Medications Albuterol/Ipratropium (Duoneb 3 Mg/0.5 Mg (3 Ml) Ud) 3 ml INH RQ6 [facility] Last Admin: 06/14/18 13:28 Dose: 3 ml Alprazolam (Xanax) 0.5 mg PO HS [facility] Last Admin: 06/13/18 22:30 Dose: 0.5 mg Amlodipine Besylate (Norvasc) 5 mg PO DAILY [facility] Last Admin: 06/14/18 09:33 Dose: 5 mg Clopidogrel Bisulfate (Plavix) 75 mg PO DAILY [facility] Last Admin: 06/14/18 09:34 Dose: 75 mg Fluticasone/Vilanterol (Breo Ellipta 100-25 Mcg Inh) 1 puff INH RQ24 [facility] Furosemide (Lasix) 60 mg IVP DAILY [facility] Last Admin: 06/14/18 09:34 Dose: 60 mg Ceftriaxone Sodium 2 gm/ (Sodium Chloride) 100 mls @ 100 mls/hr IVPB Q24H [facility] Stop: 06/23/18 20:29 Last Admin: 06/13/18 19:02 Dose: 100 mls/hr Pantoprazole Sodium (Protonix Ec Tab) 40 mg PO DAILY [facility] Last Admin: 06/14/18 09:33 Dose: 40 mg Roflumilast (Daliresp) 500 mcg PO DAILY [facility] Last Admin: 06/14/18 09:34 Dose: 500 mcg Rosuvastatin Calcium (Crestor) 10 mg PO HS [facility] Last Admin: 06/13/18 22:23 Dose: 10 mg Tramadol HCl (Ultram) 50 mg PO TID PRN PRN Reason: Pain, moderate (4-7) Vitamin B Complex/Vitamin C (Berocca) 1 tab PO DAILY [facility] Last Admin: 06/14/18 09:33 Dose: 1 tab - Labs Labs: 06/10/18 12:06 06/13/18 13:59 PT 11.4 SECONDS (9.7-12.2) 06/10/18 12:06 INR 1.0 06/10/18 12:06 APTT 32 SECONDS (21-34) 06/10/18 12:06 - Constitutional Appears: Well - Head Exam Head Exam: ATRAUMATIC, NORMAL INSPECTION, NORMOCEPHALIC - Eye Exam Eye Exam: EOMI, Normal appearance, PERRL Pupil Exam: NORMAL ACCOMODATION, PERRL - ENT Exam ENT Exam: Mucous Membranes Moist, Normal Exam - Neck Exam Neck Exam: Full ROM, Normal Inspection. absent: Lymphadenopathy - Respiratory Exam Respiratory Exam: Decreased Breath Sounds - Cardiovascular Exam Cardiovascular Exam: REGULAR RHYTHM, +S1, +S2 - GI/Abdominal Exam GI & Abdominal Exam: Soft, Diminished Bowel Sounds - Rectal Exam Rectal Exam: Deferred
[2018-06-14] MEDS: cefTRIAXone 2 GM in Sodium Chloride 0.9% 100 ML IVPB SCH (18:46)
[2018-06-15] MEDS: Albuterol-Ipratrop 3 mg / 0.5 (3 ml) UD INH SCH ×4 (02:02→20:51)
[2018-06-15] MEDS: Vitamin B Complex/Vitamin C Tab PO SCH (09:52)
[2018-06-15] MEDS: Pantoprazole 40 mg EC Tab PO SCH (09:52)
[2018-06-15 10:51] LABS: BASO % 0.5 % (0.0-2.0); EOS # 0.2 K/uL (0.0-0.7); EOS % 2.5 % (0.0-4.0); LYMPH # 0.8 K/uL (1.0-4.3); LYMPH % 10.5 % (20.0-40.0); MEAN CELL VOLUME 86.4 fL (80.0-94.0); MEAN CORPUSCULAR HGB CONC 32.4 g/dL (33.0-37.0); MEAN PLATELET VOLUME 7.3 fL (7.2-11.7); MONO # 0.8 K/uL (0.0-0.8); MONO % 9.6 % (0.0-10.0); NEUT # 6.1 K/uL (1.8-7.0); NEUT % 76.9 % (50.0-75.0); RBC 3.21 Mil/uL (4.40-5.90); RED CELL DISTRIBUTION WIDTH 13.6 % (11.5-14.5)
[2018-06-15] MEDS: cefTRIAXone 2 GM in Sodium Chloride 0.9% 100 ML IVPB SCH (11:00)
[2018-06-15 11:07] LABS: ALB/GLOB RATIO 1.4 (1.0-2.1); ALBUMIN 3.8 g/dL (3.5-5.0); CALCIUM 8.7 mg/dl (8.6-10.4)
--- NOTE | 2018-06-15 11:24 | CP.PCM.PN ---
Subjective - Date & Time of Evaluation Date of Evaluation: 06/15/18 Time of Evaluation: 11:23 - Subjective Subjective: Events reviewed Objective - Vital Signs/Intake and Output Vital Signs (last 24 hours): Temp Pulse Resp BP Pulse Ox 98.1 F 81 20 122/62 94 L 06/15/18 07:00 06/15/18 07:10 06/15/18 07:00 06/15/18 09:52 06/15/18 07:00 Intake and Output: 06/15/18 06/15/18 06:59 18:59 Intake Total 250 Output Total 1700 Balance -1450 - Medications Medications: Current Medications Albuterol/Ipratropium (Duoneb 3 Mg/0.5 Mg (3 Ml) Ud) 3 ml INH RQ6 [facility] Last Admin: 06/15/18 08:04 Dose: 3 ml Alprazolam (Xanax) 0.5 mg PO HS [facility] Last Admin: 06/14/18 21:27 Dose: 0.5 mg Amlodipine Besylate (Norvasc) 5 mg PO DAILY [facility] Last Admin: 06/15/18 09:52 Dose: 5 mg Clopidogrel Bisulfate (Plavix) 75 mg PO DAILY [facility] Last Admin: 06/15/18 09:52 Dose: 75 mg Fluticasone/Vilanterol (Breo Ellipta 100-25 Mcg Inh) 1 puff INH RQ24 [facility] Furosemide (Lasix) 60 mg IVP DAILY [facility] Last Admin: 06/15/18 09:52 Dose: 60 mg Ceftriaxone Sodium 2 gm/ (Sodium Chloride) 100 mls @ 100 mls/hr IVPB DAILY [facility]; Protocol Pantoprazole Sodium (Protonix Ec Tab) 40 mg PO DAILY [facility] Last Admin: 06/15/18 09:52 Dose: 40 mg Roflumilast (Daliresp) 500 mcg PO DAILY [facility] Last Admin: 06/15/18 09:52 Dose: 500 mcg Rosuvastatin Calcium (Crestor) 10 mg PO HS [facility] Last Admin: 06/14/18 21:27 Dose: 10 mg Tramadol HCl (Ultram) 50 mg PO TID PRN PRN Reason: Pain, moderate (4-7) Last Admin: 06/14/18 22:21 Dose: 50 mg Vitamin B Complex/Vitamin C (Berocca) 1 tab PO DAILY [facility] Last Admin: 06/15/18 09:52 Dose: 1 tab - Labs Labs: 06/15/18 10:42 06/15/18 10:42 PT 11.4 SECONDS (9.7-12.2) 06/10/18 12:06 INR 1.0 06/10/18 12:06 APTT 32 SECONDS (21-34) 06/10/18 12:06 Assessment and Plan - Assessment and Plan (Free Text) Assessment: - Constitutional Appears: No Acute Distress, Chronically Ill - Head Exam Head Exam: ATRAUMATIC, NORMAL INSPECTION, NORMOCEPHALIC - Eye Exam Eye Exam: EOMI, Normal appearance. absent: Scleral icterus - ENT Exam ENT Exam: Mucous Membranes Moist - Neck Exam Neck Exam: Full ROM, Normal Inspection. absent: Tenderness, Thyromegaly - Respiratory Exam Respiratory Exam: Decreased Breath Sounds, NORMAL BREATHING PATTERN Additional comments: bibasilar crep and interstitial breath sounds - Cardiovascular Exam Cardiovascular Exam: REGULAR RHYTHM, +S1, +S2. absent: Murmur - GI/Abdominal Exam GI & Abdominal Exam: Distended, Soft, Normal Bowel Sounds. 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 Sxs are c/w acute on chronic lung disease and ABE/Cor Pulmonale Based on echo he remains volume overloaded for which diuretics should be continued with consideration for diamox. Continue agreessive wound care, CPAP titration, DVT prophylaxis CAD: stable on DAPT and statin, consider addition of imdur and ranexa PPM: 100% V. pacing may contribute to mild LV dysfunction....can consider upgrade to BiV pacing if sxs of SOB not improving.
--- NOTE | 2018-06-15 11:35 | CP.PCM.PN ---
Subjective - Date & Time of Evaluation Date of Evaluation: 06/15/18 Time of Evaluation: 11:33 - Subjective Subjective: Podiatry - Dr. Morrell 83 y/o M patient seen and examined this AM for chronic LLE wound and b/l LE edema. NAD. No new LE complaints. Dressings was clean/dry/intact. Lower extremity swelling continuing to improve. Patient denies any pain to his b/l LE. He denies any other pedal complaint at this time. He denies any overnight f/n/v/d/c. Objective - Vital Signs/Intake and Output Vital Signs (last 24 hours): Temp Pulse Resp BP Pulse Ox 98.1 F 81 20 122/62 94 L 06/15/18 07:00 06/15/18 07:10 06/15/18 07:00 06/15/18 09:52 06/15/18 07:00 Intake and Output: 06/15/18 06/15/18 06:59 18:59 Intake Total 250 Output Total 1700 Balance -1450 - Medications Medications: Current Medications Albuterol/Ipratropium (Duoneb 3 Mg/0.5 Mg (3 Ml) Ud) 3 ml INH RQ6 [facility] Last Admin: 06/15/18 08:04 Dose: 3 ml Alprazolam (Xanax) 0.5 mg PO HS [facility] Last Admin: 06/14/18 21:27 Dose: 0.5 mg Amlodipine Besylate (Norvasc) 5 mg PO DAILY [facility] Last Admin: 06/15/18 09:52 Dose: 5 mg Clopidogrel Bisulfate (Plavix) 75 mg PO DAILY [facility] Last Admin: 06/15/18 09:52 Dose: 75 mg Fluticasone/Vilanterol (Breo Ellipta 100-25 Mcg Inh) 1 puff INH RQ24 [facility] Furosemide (Lasix) 60 mg IVP DAILY [facility] Last Admin: 06/15/18 09:52 Dose: 60 mg Ceftriaxone Sodium 2 gm/ (Sodium Chloride) 100 mls @ 100 mls/hr IVPB DAILY [facility]; Protocol Pantoprazole Sodium (Protonix Ec Tab) 40 mg PO DAILY [facility] Last Admin: 06/15/18 09:52 Dose: 40 mg Roflumilast (Daliresp) 500 mcg PO DAILY [facility] Last Admin: 06/15/18 09:52 Dose: 500 mcg Rosuvastatin Calcium (Crestor) 10 mg PO HS [facility] Last Admin: 06/14/18 21:27 Dose: 10 mg Tramadol HCl (Ultram) 50 mg PO TID PRN PRN Reason: Pain, moderate (4-7) Last Admin: 06/14/18 22:21 Dose: 50 mg Vitamin B Complex/Vitamin C (Berocca) 1 tab PO DAILY [facility] Last Admin: 06/15/18 09:52 Dose: 1 tab - Labs Labs: 06/15/18 10:42 06/15/18 10:42 PT 11.4 SECONDS (9.7-12.2) 06/10/18 12:06 INR 1.0 06/10/18 12:06 APTT 32 SECONDS (21-34) 06/10/18 12:06 - Constitutional Appears: Well, Non-toxic - Head Exam Head Exam: ATRAUMATIC, NORMOCEPHALIC - Extremities Exam Additional comments: B/L LE focused exam: Dressings to bilateral LE clean/dry/intact with no strikethrough present VASC: DP/PT pulses non-palpable b/l. Cap refill <3 seconds to digits. +1 pitting edema noted b/l. Temperature gradient warm to warm with no increase in warmth to left lateral leg wound. NEURO: Gross sensation diminished. DERM: Venous stasis dermatitis present to legs circumfirentially b/l. Venous stasis wound noted to left lateral leg measuring approximately 8 x 6 cm with second wound more anterior measuring approximately 2 x 1 cm - both ulcers noted to have 100% granular base with serous drainage present; foul odor present. Weeping noted to areas of venous stasis dermatitis b/l. MSK: No pain on palpation to wound site. No pain upon calf squeeze b/l. - Neurological Exam Neurological Exam: Alert, Awake, Oriented x3 - Psychiatric Exam Psychiatric exam: Normal Affect, Normal Mood Assessment and Plan - Assessment and Plan (Free Text) Assessment: 83 y/o M patient with chronic venous stasis ulcerations LLE and b/l LE edema Plan: Patient seen and evaluated with attending, Dr. Morrell Plan discussed with Dr. Morrell Charts, labs and vitals reviewed; Afebrile, No Leukocytosis Continue local wound care - xeroform, DSD; MERLENE b/l Continue abx per primary - Ceftriaxone Activity: WBAT Podiatry will continue to follow up the patient while in house.
--- NOTE | 2018-06-15 17:24 | CP.PCM.PN ---
Subjective - Date & Time of Evaluation Date of Evaluation: 06/15/18 Time of Evaluation: 17:24 - Subjective Subjective: Pt is seen and examined No events overnight Objective - Vital Signs/Intake and Output Vital Signs (last 24 hours): Temp Pulse Resp BP Pulse Ox 98.0 F 76 20 130/55 L 97 06/15/18 15:21 06/15/18 16:00 06/15/18 15:21 06/15/18 15:21 06/15/18 15:21 Intake and Output: 06/15/18 06/15/18 06:59 18:59 Intake Total 250 450 Output Total 1700 700 Balance -1450 -250 - Medications Medications: Current Medications Albuterol/Ipratropium (Duoneb 3 Mg/0.5 Mg (3 Ml) Ud) 3 ml INH RQ6 [facility] Last Admin: 06/15/18 13:46 Dose: 3 ml Alprazolam (Xanax) 0.5 mg PO HS [facility] Last Admin: 06/14/18 21:27 Dose: 0.5 mg Amlodipine Besylate (Norvasc) 5 mg PO DAILY [facility] Last Admin: 06/15/18 09:52 Dose: 5 mg Clopidogrel Bisulfate (Plavix) 75 mg PO DAILY [facility] Last Admin: 06/15/18 09:52 Dose: 75 mg Fluticasone/Vilanterol (Breo Ellipta 100-25 Mcg Inh) 1 puff INH RQ24 [facility] Furosemide (Lasix) 60 mg IVP DAILY [facility] Last Admin: 06/15/18 09:52 Dose: 60 mg Ceftriaxone Sodium 2 gm/ (Sodium Chloride) 100 mls @ 100 mls/hr IVPB DAILY [facility]; Protocol Last Admin: 06/15/18 11:00 Dose: 100 mls/hr Pantoprazole Sodium (Protonix Ec Tab) 40 mg PO DAILY [facility] Last Admin: 06/15/18 09:52 Dose: 40 mg Roflumilast (Daliresp) 500 mcg PO DAILY [facility] Last Admin: 06/15/18 09:52 Dose: 500 mcg Rosuvastatin Calcium (Crestor) 10 mg PO HS [facility] Last Admin: 06/14/18 21:27 Dose: 10 mg Tramadol HCl (Ultram) 50 mg PO TID PRN PRN Reason: Pain, moderate (4-7) Last Admin: 12/14/18 22:21 Dose: 50 mg Vitamin B Complex/Vitamin C (Berocca) 1 tab PO DAILY [facility] Last Admin: 06/15/18 09:52 Dose: 1 tab - Labs Labs: 06/15/18 10:42 06/15/18 10:42 PT 11.4 SECONDS (9.7-12.2) 06/10/18 12:06 INR 1.0 06/10/18 12:06 APTT 32 SECONDS (21-34) 06/10/18 12:06 - Head Exam Head Exam: NORMAL INSPECTION - Eye Exam Eye Exam: Normal appearance - ENT Exam ENT Exam: Mucous Membranes Moist - Respiratory Exam Respiratory Exam: Decreased Breath Sounds - Cardiovascular Exam Cardiovascular Exam: REGULAR RHYTHM, +S1, +S2 - GI/Abdominal Exam GI & Abdominal Exam: Soft, Normal Bowel Sounds - Extremities Exam Extremities Exam: Pedal Edema Assessment and Plan (1) Acute exacerbation of CHF (congestive heart failure) Status: Acute (2) Dyspnea Status: Acute (3) Respiratory failure with hypoxia and hypercapnia Status: Acute (4) COPD (chronic obstructive pulmonary disease) Status: Chronic - Assessment and Plan (Free Text) Plan: BiPAP as needed IV steroids Abx Lasix O2 Breo Ellipta Bronchodilators DVT/GI prophalaxis
--- NOTE | 2018-06-15 21:37 | CP.PCM.PN ---
Subjective - Date & Time of Evaluation Date of Evaluation: 06/15/18 Time of Evaluation: 08:30 - Subjective Subjective: clinically same Objective - Vital Signs/Intake and Output Vital Signs (last 24 hours): Temp Pulse Resp BP Pulse Ox 98.0 F 76 20 130/55 L 97 06/15/18 15:21 06/15/18 16:00 06/15/18 15:21 06/15/18 15:21 06/15/18 15:21 Intake and Output: 06/15/18 06/16/18 18:59 06:59 Intake Total 450 Output Total 700 Balance -250 - Medications Medications: Current Medications Alprazolam (Xanax) 0.5 mg PO HS [facility] Last Admin: 06/15/18 21:22 Dose: 0.5 mg Amlodipine Besylate (Norvasc) 5 mg PO DAILY [facility] Last Admin: 06/15/18 09:52 Dose: 5 mg Clopidogrel Bisulfate (Plavix) 75 mg PO DAILY [facility] Last Admin: 06/15/18 09:52 Dose: 75 mg Fluticasone/Vilanterol (Breo Ellipta 100-25 Mcg Inh) 1 puff INH RQ24 [facility] Furosemide (Lasix) 60 mg IVP DAILY [facility] Last Admin: 06/15/18 09:52 Dose: 60 mg Ceftriaxone Sodium 2 gm/ (Sodium Chloride) 100 mls @ 100 mls/hr IVPB DAILY [facility]; Protocol Last Admin: 06/15/18 11:00 Dose: 100 mls/hr Pantoprazole Sodium (Protonix Ec Tab) 40 mg PO DAILY [facility] Last Admin: 06/15/18 09:52 Dose: 40 mg Roflumilast (Daliresp) 500 mcg PO DAILY [facility] Last Admin: 06/15/18 09:52 Dose: 500 mcg Rosuvastatin Calcium (Crestor) 10 mg PO HS [facility] Last Admin: 06/15/18 21:22 Dose: 10 mg Tramadol HCl (Ultram) 50 mg PO TID PRN PRN Reason: Pain, moderate (4-7) Last Admin: 06/14/18 22:21 Dose: 50 mg Vitamin B Complex/Vitamin C (Berocca) 1 tab PO DAILY [facility] Last Admin: 06/15/18 09:52 Dose: 1 tab - Labs Labs: 06/15/18 10:42 06/15/18 10:42 PT 11.4 SECONDS (9.7-12.2) 06/10/18 12:06 INR 1.0 06/10/18 12:06 APTT 32 SECONDS (21-34) 06/10/18 12:06
[2018-06-16] MEDS ORDERED: DiphenhydrAMINE 12.5 mg/5 ml LIQ UD (5 ml) PO STA (02:42)
[2018-06-16 08:28] LABS: BASO % 0.4 % (0.0-2.0); EOS # 0.2 K/uL (0.0-0.7); HEMOGLOBIN 9.3 g/dL (12.0-18.0); LYMPH # 0.6 K/uL (1.0-4.3); LYMPH % 6.4 % (20.0-40.0); MEAN CELL VOLUME 85.4 fL (80.0-94.0); MEAN CORPUSCULAR HEMOGLOBIN 27.3 pg (27.0-31.0); MEAN PLATELET VOLUME 7.3 fL (7.2-11.7); MONO # 0.9 K/uL (0.0-0.8); MONO % 9.2 % (0.0-10.0); PLATELET COUNT 250 K/uL (130-400); RED CELL DISTRIBUTION WIDTH 13.7 % (11.5-14.5); WHITE BLOOD COUNT 9.7 K/uL (4.8-10.8)
[2018-06-16 08:45] LABS: ALB/GLOB RATIO 1.2 (1.0-2.1); ALBUMIN 3.7 g/dL (3.5-5.0)
[2018-06-16 09:17] LABS: ANISOCYTOSIS SLIGHT; EOSINOPHIL 4 % (0-4); HYPOCHROMIC SLIGHT; LYMPHOCYTE 5 % (20-40); MONOCYTE 7 % (0-10); NEUTROPHIL 84 % (50-75); PLATELET ESTIMATE NORMAL (NORMAL); POIKILOCYTOSIS SLIGHT; TOTAL CELLS COUNTED 100
[2018-06-16 09:18] LABS: OVALOCYTES SLIGHT; POLYCHROMIC SLIGHT; TOXIC GRANULATION PRESENT
[2018-06-16] MEDS: Vitamin B Complex/Vitamin C Tab PO SCH (10:43)
[2018-06-16] MEDS: Pantoprazole 40 mg EC Tab PO SCH (10:44)
[2018-06-16] MEDS: cefTRIAXone 2 GM in Sodium Chloride 0.9% 100 ML IVPB SCH (10:51)
--- NOTE | 2018-06-16 14:57 | CP.PCM.CON ---
History of Present Illness - History of Present Illness History of Present Illness: 83 yo male admitted for stasis dermatitis of legs with cellulitis left leg Additional comments: Review of Systems - Review of Systems Systems not reviewed;Unavailable: Altered Mental Status All systems: reviewed and no additional remarkable complaints except - Constitutional Constitutional: As Per HPI - EENT Eyes: absent: As Per HPI, Blind Spots, Blurred Vision, Change in Vision, Decreased Night Vision, Diplopia, Discharge, Dry Eye, Exophthalmos, Floaters, Irritation, Itchy Eyes, Loss of Peripheral Vision, Pain, Photophobia, Requires Corrective Lenses, Sees Flashes, Spots in Vision, Tunnel Vision, Other Visual Disturbances, Loss of Vision, Other Ears: absent: As Per HPI, Decreased Hearing, Ear Discharge, Ear Pain, Tinnitus, Abnormal Hearing, Disequilibrium, Dizziness, Other Nose/Mouth/Throat: absent: As Per HPI, Epistaxis, Nasal Congestion, Nasal Discharge, Nasal Obstruction, Nasal Trauma, Nose Pain, Post Nasal Drip, Sinus Pain, Sinus Pressure, Bleeding Gums, Change in Voice, Dental Pain, Dry Mouth, Dysphagia, Halitosis, Hoarsness, Lip Swelling, Mouth Lesions, Mouth Pain, Odynophagia, Sore Throat, Throat Swelling, Tongue Swelling, Facial Pain, Neck Pain, Neck Mass, Other - Cardiovascular Cardiovascular: As Per HPI - Respiratory Respiratory: As Per HPI - Gastrointestinal Gastrointestinal: absent: As Per HPI, Abdominal Pain, Belching, Bloating, Change in Bowel Habits, Change in Stool Character, Coffee Ground Emesis, Constipation, Cramping, Diarrhea, Dyspepsia, Dysphagia, Early Satiety, Excessive Flatus, Fecal Incontinence, Heartburn, Hematemesis, Hematochezia, Loose Stools, Melena, Nausea, Odynophagia, Temesmus, Vomiting, Other - Genitourinary Genitourinary: absent: As Per HPI, Change in Urinary Stream, Difficulty Urinating, Dysuria, Flank Pain, Hematuria, Pyuria, Nocturia, Urinary Inconti nence, Urinary Frequency, Urinary Hesitance, Urinary Urgency, Voiding Freq/Small Amts, Freq UTI, Hx Renal/Bladder Calculi, Hx /Renal Surgery, Bladder Distension, Other - Musculoskeletal Musculoskeletal: As Per HPI - Integumentary Integumentary: As Per HPI - Neurological Neurological: As Per HPI - Psychiatric Psychiatric: absent: As Per HPI, Abnormal Sleep Pattern, Anhedonia, Anxiety, Auditory Hallucinations, Behavioral Changes, Change in Appetite, Change in Libido, Confusion, Depression, Difficulty Concentrating, Hallucinations, Homicid al Ideation, Hopelessness, Irritability, Memory Loss, Mood Swings, Panic Attacks, Paranoia, Suicidal Ideation, Visual Hallucinations, Tactile Hallucinations, Other - Endocrine Endocrine: absent: As Per HPI, Change in Body Appearance, Change in Libido, Cold Intolorance, Deepening of Voice, Excessive Sweating, Fatigue, Flushing, Heat Intolorance, Increase in Ring/Shoe/Hat Size, Palpitations, Polydipsia, Polyphagia, Polyuria, Other - Hematologic/Lymphatic Hematologic: absent: As Per HPI, Easy Bleeding, Easy Bruising, Lymphadenopathy, Other Past Patient History - Infectious Disease Hx of Infectious Diseases: None - Past Medical History & Family History Past Medical History?: Yes - Past Social History Smoking Status: Former Smoker - CARDIAC Hx Hypercholesterolemia: Yes Hx Hypertension: Yes - PULMONARY Hx Chronic Obstructive Pulmonary Disease (COPD): Yes - HEENT Hx Deafness: (hard of hearing) - RENAL Hx Chronic Kidney Disease: Yes - MUSCULOSKELETAL/RHEUMATOLOGICAL Hx Falls: Yes - PSYCHIATRIC Hx Substance Use: No - SURGICAL HISTORY Hx Coronary Stent: Yes (x2) - ANESTHESIA Hx Anesthesia: Yes Hx Anesthesia Reactions: No Meds Allergies/Adverse Reactions: Allergies Allergy/AdvReac Type Severity Reaction Status Date / Time No Known Allergies Allergy Verified 06/10/18 11:49 - Medications Medications: Current Medications Alprazolam (Xanax) 0.5 mg PO HS [facility] Last Admin: 06/15/18 21:22 Dose: 0.5 mg Amlodipine Besylate (Norvasc) 5 mg PO DAILY [facility] Last Admin: 06/16/18 10:43 Dose: 5 mg Clopidogrel Bisulfate (Plavix) 75 mg PO DAILY [facility] Last Admin: 06/16/18 10:44 Dose: 75 mg Fluticasone/Vilanterol (Breo Ellipta 100-25 Mcg Inh) 1 puff INH RQ24 [facility] Furosemide (Lasix) 60 mg IVP DAILY [facility] Last Admin: 06/16/18 11:57 Dose: 60 mg Ceftriaxone Sodium 2 gm/ (Sodium Chloride) 100 mls @ 100 mls/hr IVPB DAILY [facility]; Protocol Last Admin: 06/16/18 10:51 Dose: 100 mls/hr Pantoprazole Sodium (Protonix Ec Tab) 40 mg PO DAILY [facility] Last Admin: 06/16/18 10:44 Dose: 40 mg Roflumilast (Daliresp) 500 mcg PO DAILY [facility] Last Admin: 06/15/18 09:52 Dose: 500 mcg Rosuvastatin Calcium (Crestor) 10 mg PO HS [facility] Last Admin: 06/15/18 21:22 Dose: 10 mg Tramadol HCl (Ultram) 50 mg PO TID PRN PRN Reason: Pain, moderate (4-7) Last Admin: 06/14/18 22:21 Dose: 50 mg Vitamin B Complex/Vitamin C (Berocca) 1 tab PO DAILY [facility] Last Admin: 06/16/18 10:43 Dose: 1 tab Physical Exam - Constitutional Appears: Non-toxic, Confused, Chronically Ill - Head Exam Head Exam: NORMOCEPHALIC - Eye Exam Eye Exam: absent: Scleral icterus - ENT Exam ENT Exam: Mucous Membranes Dry - Neck Exam Neck exam: Negative for: Lymphadenopathy - Respiratory Exam Respiratory Exam: Decreased Breath Sounds, Clear to Auscultation Bilateral - Cardiovascular Exam Cardiovascular Exam: REGULAR RHYTHM, +S1, +S2 - GI/Abdominal Exam GI & Abdominal Exam: Diminished Bowel Sounds, Soft. absent: Tenderness - Rectal Exam Rectal Exam: Deferred - Exam Exam: NORMAL INSPECTION - Extremities Exam Extremities exam: Positive for: pedal edema Additional comments: VASC: DP and PT pulses nonpalpable b/l. CFT <3 seconds to digits. +1 pitting edema noted b/l. Temperature gradient warm to warm with no increase in warmth to left lateral leg wound. NEURO: Gross sensation diminished. DERM: Venous stasis dermatitis present to legs circumfirentially b/l. Venous stasis wound noted to left lateral leg measuring approximately 8 x 6 cm with second wound more anterior measuring approximately 2 x 1 cm - both ulcers noted to have 100% granular base with serous drainage present; foul odor present. Weeping noted to areas of venous stasis dermatitis b/l. ORTHO: No pain on palpation to wound site. No pain upon calf squeeze b/l. - Back Exam Back exam: absent: CVA tenderness (L), CVA tenderness (R) - Neurological Exam Neurological exam: Alert, Altered, CN II-XII Intact - Psychiatric Exam Psychiatric exam: Normal Mood - Skin Skin Exam: Dry, Intact Results - Vital Signs Recent Vital Signs: Last Vital Signs Temp 98.1 F 06/16/18 07:00 Pulse 91 H 06/16/18 07:00 Resp 20 06/16/18 07:00 BP 138/68 06/16/18 11:57 Pulse Ox 94 L 06/16/18 07:00 - Labs Result Diagrams: 06/16/18 07:59 06/16/18 07:59 Labs: Laboratory Results - last 24 hr 06/16/18 06/16/18 07:59 07:59 WBC 9.7 RBC 3.40 L Hgb 9.3 L Hct 29.0 L MCV 85.4 MCH 27.3 MCHC 32.0 L RDW 13.7 Plt Count 250 MPV 7.3 Neut % (Auto) 82.0 H Lymph % (Auto) 6.4 L [place] % (Auto) 9.2 Eos % (Auto) 2.0 Baso % (Auto) 0.4 Neut # (Auto) 8.0 H Lymph # (Auto) 0.6 L [place] # (Auto) 0.9 H Eos # (Auto) 0.2 Baso # (Auto) 0.0 Neutrophils % (Manual) 84 H Lymphocytes % (Manual) 5 L Monocytes % (Manual) 7 Eosinophils % (Manual) 4 Toxic Granulation Present Platelet Estimate Normal Polychromasia Slight Hypochromasia (manual) Slight Poikilocytosis (manual Slight Anisocytosis (manual) Slight Ovalocytes Slight Sodium 139 Potassium 4.2 Chloride 87 L Carbon Dioxide 44 H* Anion Gap 12 BUN 34 H Creatinine 1.5 Est GFR ( Amer) 54 Est GFR (Non-Af Amer) 45 Random Glucose 102 Calcium 9.0 Total Bilirubin 0.5 AST 22 ALT 23 Alkaline Phosphatase 81 Total Protein 6.8 Albumin 3.7 Globulin 3.1 Albumin/Globulin Ratio 1.2 Assessment & Plan (1) Acute exacerbation of CHF (congestive heart failure) Status: Acute (2) Bilateral cellulitis of lower leg Status: Acute (3) CAD (coronary artery disease) Status: Acute (4) COPD (chronic obstructive pulmonary disease) Status: Chronic (5) Hypertension Status: Chronic - Assessment and Plan (Free Text) Assessment: AMS multifactorial- CO2 retention, infection , toxic metabolic cultures repeated IV antibiotics in progress poor prognosis
--- NOTE | 2018-06-16 16:33 | RAD ---
Date of service: 06/16/2018 HISTORY: pneumonia COMPARISON: Comparison is made with 06/10/2018 FINDINGS: LUNGS: Interval increase in the size of the bibasilar opacities especially in the right likely represent atelectasis. The possibility of infiltrate is not totally excluded. PLEURA: No significant pleural effusion identified, no pneumothorax apparent. CARDIOVASCULAR: Foci of aortic atherosclerotic calcification present. The cardiac silhouette is enlarged. There is a left-sided pacemaker in place. No pulmonary vascular congestion. OSSEOUS STRUCTURES: No significant abnormalities. VISUALIZED UPPER ABDOMEN: Normal. OTHER FINDINGS: None. IMPRESSION: Interval slight worsening of bibasilar opacities likely represent atelectasis or infiltrate.
--- NOTE | 2018-06-16 17:21 | CP.PCM.PN ---
Subjective - Date & Time of Evaluation Date of Evaluation: 06/16/18 Time of Evaluation: 09:00 - Subjective Subjective: clinically same Objective - Vital Signs/Intake and Output Vital Signs (last 24 hours): Temp Pulse Resp BP Pulse Ox 98.1 F 91 H 20 113/67 94 L 06/16/18 07:00 06/16/18 07:00 06/16/18 07:00 06/16/18 16:47 06/16/18 07:00 Intake and Output: 06/16/18 06/16/18 06:59 18:59 Intake Total 300 Output Total 800 Balance -800 300 - Medications Medications: Current Medications Albuterol/Ipratropium (Duoneb 3 Mg/0.5 Mg (3 Ml) Ud) 3 ml INH RQ6 [facility] Alprazolam (Xanax) 0.5 mg PO HS [facility] Last Admin: 06/15/18 21:22 Dose: 0.5 mg Amlodipine Besylate (Norvasc) 5 mg PO DAILY [facility] Last Admin: 06/16/18 10:43 Dose: 5 mg Clopidogrel Bisulfate (Plavix) 75 mg PO DAILY [facility] Last Admin: 06/16/18 10:44 Dose: 75 mg Fluticasone/Vilanterol (Breo Ellipta 100-25 Mcg Inh) 1 puff INH RQ24 [facility] Furosemide (Lasix) 60 mg IVP DAILY [facility] Last Admin: 06/16/18 11:57 Dose: 60 mg Vancomycin/Sodium Chloride (Vancomycin 1 Gm/Ns 200 Ml) 1 gm in 200 mls @ 166.7 mls/hr IVPB Q24H [facility]; Protocol Stop: 06/21/18 15:16 Cefepime HCl (Maxipime Iv 1 Gm Premix) 1 gm in 50 mls @ 100 mls/hr IVPB Q12H [facility]; Protocol Methylprednisolone (Solu-Medrol) 40 mg IVP Q8 [facility] Pantoprazole Sodium (Protonix Ec Tab) 40 mg PO DAILY [facility] Last Admin: 06/16/18 10:44 Dose: 40 mg Roflumilast (Daliresp) 500 mcg PO DAILY [facility] Last Admin: 06/16/18 10:30 Dose: Not Given Rosuvastatin Calcium (Crestor) 10 mg PO HS [facility] Last Admin: 06/15/18 21:22 Dose: 10 mg Tramadol HCl (Ultram) 50 mg PO TID PRN PRN Reason: Pain, moderate (4-7) Last Admin: 06/14/18 22:21 Dose: 50 mg Vitamin B Complex/Vitamin C (Berocca) 1 tab PO DAILY [facility] Last Admin: 06/16/18 10:43 Dose: 1 tab - Labs Labs: 06/16/18 07:59 06/16/18 07:59 PT 11.4 SECONDS (9.7-12.2) 06/10/18 12:06 INR 1.0 06/10/18 12:06 APTT 32 SECONDS (21-34) 06/10/18 12:06
[2018-06-16 17:26] LABS: ABG ALLEN TEST POS; ARTERIAL BLOOD GAS HCO3 41.9 mmol/L (21-28); ARTERIAL BLOOD GAS HEMOGLOBIN 11.2 g/dL (11.7-17.4); ARTERIAL BLOOD GAS PCO2 89 mm/Hg (35-45); ARTERIAL BLOOD GAS PH 7.37 (7.35-7.45); ARTERIAL BLOOD GAS PO2 57 mm/Hg (80-100); ARTERIAL BLOOD GAS TCO2 54.2 mmol/L (22-28)
--- NOTE | 2018-06-16 17:54 | CP.PCM.PN ---
Subjective - Date & Time of Evaluation Date of Evaluation: 06/16/18 Time of Evaluation: 14:49 - Subjective Subjective: Podiatry Progress note for Dr. Morrell 83 y/o M patient seen and examined at the bedside with Dr. Morrell for chronic LLE wound and b/l LE edema. NAD. No new LE complaints. Dressings was clean/dry/intact. Lower extremity swelling continuing to improve. Patient mental status looks altered and he is going for CT brain later today. Patient denies any pain to his b/l LE. He denies any other pedal complaint at this time. He denies any overnight f/n/v/d/c. Objective - Vital Signs/Intake and Output Vital Signs (last 24 hours): Temp Pulse Resp BP Pulse Ox 98.1 F 91 H 20 113/67 94 L 06/16/18 07:00 06/16/18 07:00 06/16/18 07:00 06/16/18 16:47 06/16/18 07:00 Intake and Output: 06/16/18 06/16/18 06:59 18:59 Intake Total 300 Output Total 800 Balance -800 300 - Medications Medications: Current Medications Albuterol/Ipratropium (Duoneb 3 Mg/0.5 Mg (3 Ml) Ud) 3 ml INH RQ6 [facility] Alprazolam (Xanax) 0.5 mg PO HS [facility] Last Admin: 06/15/18 21:22 Dose: 0.5 mg Amlodipine Besylate (Norvasc) 5 mg PO DAILY [facility] Last Admin: 06/16/18 10:43 Dose: 5 mg Clopidogrel Bisulfate (Plavix) 75 mg PO DAILY [facility] Last Admin: 06/16/18 10:44 Dose: 75 mg Fluticasone/Vilanterol (Breo Ellipta 100-25 Mcg Inh) 1 puff INH RQ24 [facility] Furosemide (Lasix) 60 mg IVP DAILY [facility] Last Admin: 06/16/18 11:57 Dose: 60 mg Vancomycin/Sodium Chloride (Vancomycin 1 Gm/Ns 200 Ml) 1 gm in 200 mls @ 166.7 mls/hr IVPB Q24H [facility]; Protocol Stop: 06/21/18 15:16 Cefepime HCl (Maxipime Iv 1 Gm Premix) 1 gm in 50 mls @ 100 mls/hr IVPB Q12H [facility]; Protocol Methylprednisolone (Solu-Medrol) 40 mg IVP Q8 [facility] Pantoprazole Sodium (Protonix Ec Tab) 40 mg PO DAILY [facility] Last Admin: 06/16/18 10:44 Dose: 40 mg Roflumilast (Daliresp) 500 mcg PO DAILY [facility] Last Admin: 06/16/18 10:30 Dose: Not Given Rosuvastatin Calcium (Crestor) 10 mg PO HS [facility] Last Admin: 06/15/18 21:22 Dose: 10 mg Tramadol HCl (Ultram) 50 mg PO TID PRN PRN Reason: Pain, moderate (4-7) Last Admin: 06/14/18 22:21 Dose: 50 mg Vitamin B Complex/Vitamin C (Berocca) 1 tab PO DAILY [facility] Last Admin: 06/16/18 10:43 Dose: 1 tab - Labs Labs: 06/16/18 07:59 06/16/18 07:59 PT 11.4 SECONDS (9.7-12.2) 06/10/18 12:06 INR 1.0 06/10/18 12:06 APTT 32 SECONDS (21-34) 06/10/18 12:06 - Extremities Exam Additional comments: B/L LE focused exam: Dressings to bilateral LE clean/dry/intact with no strikethrough present, Dressi ng left intact VASC: Cap refill <3 seconds to digits. NEURO: Gross sensation diminished. Assessment and Plan - Assessment and Plan (Free Text) Assessment: 83 y/o M patient with chronic venous stasis ulcerations LLE and b/l LE edema Plan: Patient seen and evaluated with attending, Dr. Morrell Plan discussed with Dr. Morrell Charts, labs and vitals reviewed; Afebrile, No Leukocytosis Dressings to bilateral LE clean/dry/intact with no strikethrough present, Dressing left intact Continue abx per primary - Ceftriaxone Activity: [facility] Podiatry will continue to follow up the patient while in house.
[2018-06-16 18:33] LABS: SQUAMOUS EPITHIAL 1 /hpf (0-5); URINE AMORPHOUS SEDIMENT OCC /ul (<OCC); URINE BACTERIA RARE (<OCC)
[2018-06-16 18:36] LABS: RAPID PLASMA REAGIN NONREACTIVE (NONREACTIVE)
[2018-06-16 18:51] LABS: URINE BILIRUBIN NEGATIVE (NEGATIVE); URINE BLOOD 2+ (NEGATIVE); URINE CLARITY HAZY (Clear); URINE COLOR YELLOW (YELLOW); URINE GLUCOSE (UA) Normal (Normal); URINE PROTEIN 2+ mg/dL (NEGATIVE)
[2018-06-16 18:52] LABS: URINE LEUKOCYTE ESTERASE NEGATIVE Leu/uL (Negative); URINE UROBILINOGEN Normal mg/dL (0.2-1.0)
[2018-06-16] MEDS: Vancomycin 1 gm/NS 200 ml 1 GM/200 ML BAG IVPB SCH (18:56)
[2018-06-16] MEDS: Albuterol-Ipratrop 3 mg / 0.5 (3 ml) UD INH SCH (19:11)
[2018-06-16] MEDS: Cefepime IV 1 gm in Dextrose 1 GM/50 ML BAG IVPB SCH (23:01)
[2018-06-16] MEDS: MethylPREDNISolone 40 mg Vial IVP SCH (23:02)
[2018-06-17] MEDS: Albuterol-Ipratrop 3 mg / 0.5 (3 ml) UD INH SCH ×4 (03:07→20:51)
[2018-06-17] MEDS: MethylPREDNISolone 40 mg Vial IVP SCH ×3 (05:35→21:24)
--- NOTE | 2018-06-17 06:58 | CP.PCM.CON ---
History of Present Illness - History of Present Illness History of Present Illness: CONSULTATION DICTATED METABOLIC Vs HYPOXIC ENCEPHALOPATHY CENTRAL SLEEP APNEA/ CENTRAL HYPOVENTILATION SYNDROME CONTINUE BiPAP CORRECT ELECTROLYTES CARDIO /PULMONARY TO FOLLOW EEG Past Patient History - Infectious Disease Hx of Infectious Diseases: None - Past Medical History & Family History Past Medical History?: Yes - Past Social History Smoking Status: Former Smoker - CARDIAC Hx Hypercholesterolemia: Yes Hx Hypertension: Yes - PULMONARY Hx Chronic Obstructive Pulmonary Disease (COPD): Yes - HEENT Hx Deafness: (hard of hearing) - RENAL Hx Chronic Kidney Disease: Yes - MUSCULOSKELETAL/RHEUMATOLOGICAL Hx Falls: Yes - PSYCHIATRIC Hx Substance Use: No - SURGICAL HISTORY Hx Coronary Stent: Yes (x2) - ANESTHESIA Hx Anesthesia: Yes Hx Anesthesia Reactions: No Meds Allergies/Adverse Reactions: Allergies Allergy/AdvReac Type Severity Reaction Status Date / Time No Known Allergies Allergy Verified 06/10/18 11:49 - Medications Medications: Current Medications Albuterol/Ipratropium (Duoneb 3 Mg/0.5 Mg (3 Ml) Ud) 3 ml INH RQ6 [facility] Last Admin: 06/17/18 03:07 Dose: 3 ml Alprazolam (Xanax) 0.5 mg PO HS [facility] Last Admin: 06/16/18 23:02 Dose: 0.5 mg Amlodipine Besylate (Norvasc) 5 mg PO DAILY [facility] Last Admin: 06/16/18 10:43 Dose: 5 mg Clopidogrel Bisulfate (Plavix) 75 mg PO DAILY [facility] Last Admin: 06/16/18 10:44 Dose: 75 mg Fluticasone/Vilanterol (Breo Ellipta 100-25 Mcg Inh) 1 puff INH RQ24 [facility] Furosemide (Lasix) 60 mg IVP DAILY [facility] Last Admin: 06/16/18 11:57 Dose: 60 mg Vancomycin/Sodium Chloride (Vancomycin 1 Gm/Ns 200 Ml) 1 gm in 200 mls @ 166.7 mls/hr IVPB Q24H [facility]; Protocol Stop: 06/21/18 15:16 Last Admin: 06/16/18 18:56 Dose: 166.7 mls/hr Cefepime HCl (Maxipime Iv 1 Gm Premix) 1 gm in 50 mls @ 100 mls/hr IVPB Q12H [facility]; Protocol Last Admin: 06/16/18 23:01 Dose: 100 mls/hr Methylprednisolone (Solu-Medrol) 40 mg IVP Q8 [facility] Last Admin: 06/17/18 05:35 Dose: 40 mg Pantoprazole Sodium (Protonix Ec Tab) 40 mg PO DAILY [facility] Last Admin: 06/16/18 10:44 Dose: 40 mg Roflumilast (Daliresp) 500 mcg PO DAILY [facility] Last Admin: 06/16/18 10:30 Dose: Not Given Rosuvastatin Calcium (Crestor) 10 mg PO HS [facility] Last Admin: 06/16/18 23:02 Dose: 10 mg Tramadol HCl (Ultram) 50 mg PO TID PRN PRN Reason: Pain, moderate (4-7) Last Admin: 06/14/18 22:21 Dose: 50 mg Vitamin B Complex/Vitamin C (Berocca) 1 tab PO DAILY [facility] Last Admin: 06/16/18 10:43 Dose: 1 tab Results - Vital Signs Recent Vital Signs: Last Vital Signs Temp 97.7 F 06/16/18 23:15 Pulse 79 06/17/18 05:32 Resp 20 06/16/18 23:15 BP 143/70 06/16/18 23:15 Pulse Ox 95 06/16/18 23:15 - Labs Result Diagrams: 06/16/18 07:59 06/16/18 07:59 Labs: Laboratory Results - last 24 hr 06/16/18 06/16/18 06/16/18 07:59 07:59 17:20 WBC 9.7 RBC 3.40 L Hgb 9.3 L Hct 29.0 L MCV 85.4 MCH 27.3 MCHC 32.0 L RDW 13.7 Plt Count 250 MPV 7.3 Neut % (Auto) 82.0 H Lymph % (Auto) 6.4 L [place] % (Auto) 9.2 Eos % (Auto) 2.0 Baso % (Auto) 0.4 Neut # (Auto) 8.0 H Lymph # (Auto) 0.6 L [place] # (Auto) 0.9 H Eos # (Auto) 0.2 Baso # (Auto) 0.0 Neutrophils % (Manual) 84 H Lymphocytes % (Manual) 5 L Monocytes % (Manual) 7 Eosinophils % (Manual) 4 Toxic Granulation Present Platelet Estimate Normal Polychromasia Slight Hypochromasia (manual) Slight Poikilocytosis (manual Slight Anisocytosis (manual) Slight Ovalocytes Slight Puncture Site Rradial pCO2 89 H* pO2 57 L HCO3 41.9 H* ABG pH 7.37 ABG Total CO2 54.2 H ABG O2 Saturation 95.0 ABG Base Excess 21.9 H ABG Hemoglobin 11.2 L ABG Carboxyhemoglobin 2.8 H POC ABG HHb (Measured) 4.8 ABG Methemoglobin 1.7 [place] Test Pos A-a O2 Difference 46.0 Respiratory Index 0.8 Hgb O2 Saturation 90.7 L Vent Mode Bipap FiO2 30.0 Inspiratory BiPAP 12 Expiratory BiPAP 6 Crit Value Called To hermelinda Maguire Crit Value Called By Shiloh kat rcp Crit Value Read Back Y Blood Gas Notified Time 1726 Sodium 139 Potassium 4.2 Chloride 87 L Carbon Dioxide 44 H* Anion Gap 12 BUN 34 H Creatinine 1.5 Est GFR ( Amer) 54 Est GFR (Non-Af Amer) 45 Random Glucose 102 Calcium 9.0 Total Bilirubin 0.5 AST 22 ALT 23 Alkaline Phosphatase 81 Ammonia Total Protein 6.8 Albumin 3.7 Globulin 3.1 Albumin/Globulin Ratio 1.2 Procalcitonin TSH 3rd Generation Urine Color Urine Clarity Urine pH Ur Specific [place] Urine Protein Urine Glucose (UA) Urine Ketones Urine Blood Urine Nitrate Urine Bilirubin Urine Urobilinogen Ur Leukocyte Esterase Urine RBC (Auto) Ur Squamous Epith Cells Amorphous Sediment Urine Bacteria RPR 06/16/18 06/16/18 06/16/18 18:08 18:09 18:09 WBC RBC Hgb Hct MCV MCH MCHC RDW Plt Count MPV Neut % (Auto) Lymph % (Auto) [place] % (Auto) Eos % (Auto) Baso % (Auto) Neut # (Auto) Lymph # (Auto) [place] # (Auto) Eos # (Auto) Baso # (Auto) Neutrophils % (Manual) Lymphocytes % (Manual) Monocytes % (Manual) Eosinophils % (Manual) Toxic Granulation Platelet Estimate Polychromasia Hypochromasia (manual) Poikilocytosis (manual Anisocytosis (manual) Ovalocytes Puncture Site pCO2 pO2 HCO3 ABG pH ABG Total CO2 ABG O2 Saturation ABG Base Excess ABG Hemoglobin ABG Carboxyhemoglobin POC ABG HHb (Measured) ABG Methemoglobin [place]ylan Test A-a O2 Difference Respiratory Index Hgb O2 Saturation Vent Mode FiO2 Inspiratory BiPAP Expiratory BiPAP Crit Value Called To Crit Value Called By Crit Value Read Back Blood Gas Notified Time Sodium Potassium Chloride Carbon Dioxide Anion Gap BUN Creatinine Est GFR ( Amer) Est GFR (Non-Af Amer) Random Glucose Calcium Total Bilirubin AST ALT Alkaline Phosphatase Ammonia 10 Total Protein Albumin Globulin Albumin/Globulin Ratio Procalcitonin 0.15 L TSH 3rd Generation Urine Color Yellow Urine Clarity Hazy Urine pH 5.0 Ur Specific [place] 1.009 Urine Protein 2+ H Urine Glucose (UA) Normal Urine Ketones Negative Urine Blood 2+ H Urine Nitrate Negative Urine Bilirubin Negative Urine Urobilinogen Normal Ur Leukocyte Esterase Negative Urine RBC (Auto) 70 H Ur Squamous Epith Cells 1 Amorphous Sediment Occ H Urine Bacteria Rare RPR Nonreactive 06/16/18 18:09 WBC RBC Hgb Hct MCV MCH MCHC RDW Plt Count MPV Neut % (Auto) Lymph % (Auto) [place] % (Auto) Eos % (Auto) Baso % (Auto) Neut # (Auto) Lymph # (Auto) [place] # (Auto) Eos # (Auto) Baso # (Auto) Neutrophils % (Manual) Lymphocytes % (Manual) Monocytes % (Manual) Eosinophils % (Manual) Toxic Granulation Platelet Estimate Polychromasia Hypochromasia (manual) Poikilocytosis (manual Anisocytosis (manual) Ovalocytes Puncture Site pCO2 pO2 HCO3 ABG pH ABG Total CO2 ABG O2 Saturation ABG Base Excess ABG Hemoglobin ABG Carboxyhemoglobin POC ABG HHb (Measured) ABG Methemoglobin Fro[place] Test A-a O2 Difference Respiratory Index Hgb O2 Saturation Vent Mode FiO2 Inspiratory BiPAP Expiratory BiPAP Crit Value Called To Crit Value Called By Crit Value Read Back Blood Gas Notified Time Sodium Potassium Chloride Carbon Dioxide Anion Gap BUN Creatinine Est GFR ( Amer) Est GFR (Non-Af Amer) Random Glucose Calcium Total Bilirubin AST ALT Alkaline Phosphatase Ammonia Total Protein Albumin Globulin Albumin/Globulin Ratio Procalcitonin TSH 3rd Generation 3.22 Urine Color Urine Clarity Urine pH Ur Specific [place] Urine Protein Urine Glucose (UA) Urine Ketones Urine Blood Urine Nitrate Urine Bilirubin Urine Urobilinogen Ur Leukocyte Esterase Urine RBC (Auto) Ur Squamous Epith Cells Amorphous Sediment Urine Bacteria RPR
[2018-06-17 08:08] LABS: HEPATITIS B SURFACE AG Negative (NEGATIVE)
[2018-06-17 08:14] LABS: HEPATITIS A IGM NEGATIVE (NEGATIVE); HEPATITIS B CORE AB NEGATIVE (NEGATIVE)
[2018-06-17 08:25] LABS: HEPATITIS C ANTIBODY NEGATIVE (NEGATIVE)
[2018-06-17 09:03] LABS: FREE T4 1.01 ng/dL (0.78-2.19)
[2018-06-17 09:08] LABS: PROLACTIN 8.3 ng/mL (3.7-17.9)
[2018-06-17] MEDS: Pantoprazole 40 mg EC Tab PO SCH (10:55)
[2018-06-17] MEDS: Vitamin B Complex/Vitamin C Tab PO SCH (10:55)
[2018-06-17] MEDS: Cefepime IV 1 gm in Dextrose 1 GM/50 ML BAG IVPB SCH ×2 (10:56→21:24)
--- NOTE | 2018-06-17 11:09 | CP.PCM.PN ---
Subjective - Date & Time of Evaluation Date of Evaluation: 06/17/18 Time of Evaluation: 08:00 - Subjective Subjective: afeb more alert nad Objective - Vital Signs/Intake and Output Vital Signs (last 24 hours): Temp Pulse Resp BP Pulse Ox 98.0 F 65 20 127/60 96 06/17/18 07:45 06/17/18 08:36 06/17/18 07:45 06/17/18 10:55 06/17/18 07:45 Intake and Output: 06/17/18 06/17/18 06:59 18:59 Intake Total 370 Output Total 1999 Balance -1630 - Medications Medications: Current Medications Albuterol/Ipratropium (Duoneb 3 Mg/0.5 Mg (3 Ml) Ud) 3 ml INH RQ6 [facility] Last Admin: 06/17/18 07:42 Dose: 3 ml Alprazolam (Xanax) 0.5 mg PO HS [facility] Last Admin: 06/16/18 23:02 Dose: 0.5 mg Amlodipine Besylate (Norvasc) 5 mg PO DAILY [facility] Last Admin: 06/17/18 10:55 Dose: 5 mg Clopidogrel Bisulfate (Plavix) 75 mg PO DAILY [facility] Last Admin: 06/17/18 10:55 Dose: 75 mg Fluticasone/Vilanterol (Breo Ellipta 100-25 Mcg Inh) 1 puff INH RQ24 [facility] Furosemide (Lasix) 60 mg IVP DAILY [facility] Last Admin: 06/17/18 10:55 Dose: 60 mg Vancomycin/Sodium Chloride (Vancomycin 1 Gm/Ns 200 Ml) 1 gm in 200 mls @ 166.7 mls/hr IVPB Q24H [facility]; Protocol Stop: 06/21/18 15:16 Last Admin: 06/16/18 18:56 Dose: 166.7 mls/hr Cefepime HCl (Maxipime Iv 1 Gm Premix) 1 gm in 50 mls @ 100 mls/hr IVPB Q12H [facility]; Protocol Last Admin: 06/17/18 10:56 Dose: 100 mls/hr Methylprednisolone (Solu-Medrol) 40 mg IVP Q8 [facility] Last Admin: 06/17/18 05:35 Dose: 40 mg Pantoprazole Sodium (Protonix Ec Tab) 40 mg PO DAILY [facility] Last Admin: 06/17/18 10:55 Dose: 40 mg Roflumilast (Daliresp) 500 mcg PO DAILY [facility] Last Admin: 06/17/18 10:55 Dose: 500 mcg Rosuvastatin Calcium (Crestor) 10 mg PO HS [facility] Last Admin: 06/16/18 23:02 Dose: 10 mg Tramadol HCl (Ultram) 50 mg PO TID PRN PRN Reason: Pain, moderate (4-7) Last Admin: 06/14/18 22:21 Dose: 50 mg Vitamin B Complex/Vitamin C (Berocca) 1 tab PO DAILY [facility] Last Admin: 06/17/18 10:55 Dose: 1 tab - Labs Labs: 06/16/18 07:59 06/16/18 07:59 PT 11.4 SECONDS (9.7-12.2) 06/10/18 12:06 INR 1.0 06/10/18 12:06 APTT 32 SECONDS (21-34) 06/10/18 12:06 - Constitutional Appears: Non-toxic, Chronically Ill - Head Exam Head Exam: NORMOCEPHALIC - Eye Exam Eye Exam: absent: Scleral icterus - ENT Exam ENT Exam: Normal External Ear Exam - Neck Exam Neck Exam: absent: Lymphadenopathy - Respiratory Exam Respiratory Exam: Decreased Breath Sounds - Cardiovascular Exam Cardiovascular Exam: REGULAR RHYTHM - GI/Abdominal Exam GI & Abdominal Exam: Distended, Soft - Rectal Exam Rectal Exam: Deferred - Exam Exam: NORMAL INSPECTION - Extremities Exam Extremities Exam: Pedal Edema. absent: Calf Tenderness, Tenderness - Back Exam Back Exam: absent: CVA tenderness (L), CVA tenderness (R) - Neurological Exam Neurological Exam: Alert, Awake Assessment and Plan (1) Acute exacerbation of CHF (congestive heart failure) Status: Acute (2) Bilateral cellulitis of lower leg Status: Acute (3) CAD (coronary artery disease) Status: Acute (4) COPD (chronic obstructive pulmonary disease) Status: Chronic (5) Hypertension Status: Chronic - Assessment and Plan (Free Text) Assessment: less confused legs less swollen podiatry on board cont IV antibiotics
[2018-06-17] MEDS: Vancomycin 1 gm/NS 200 ml 1 GM/200 ML BAG IVPB SCH (14:14)
--- NOTE | 2018-06-17 17:05 | CP.PCM.PN ---
Subjective - Date & Time of Evaluation Date of Evaluation: 06/17/18 Time of Evaluation: 17:03 - Subjective Subjective: Podiatry Progress note for Dr. Morrell 83 y/o M patient seen and examined at the bedside with Dr. Morrell for chronic LLE wound and b/l LE edema. Patient in no acute distress, and dressing have been clean, dry and intact. Patient denies any pain to his b/l LE. He denies any other pedal complaint at this time. He denies any overnight f/n/v/d/c. Patient aide at bedside. Objective - Vital Signs/Intake and Output Vital Signs (last 24 hours): Temp Pulse Resp BP Pulse Ox 98.0 F 65 20 127/60 96 06/17/18 07:45 06/17/18 08:36 06/17/18 07:45 06/17/18 10:55 06/17/18 07:45 Intake and Output: 06/17/18 06/17/18 06:59 18:59 Intake Total 370 Output Total 2000 Balance -1630 - Medications Medications: Current Medications Albuterol/Ipratropium (Duoneb 3 Mg/0.5 Mg (3 Ml) Ud) 3 ml INH RQ6 [facility] Last Admin: 06/17/18 13:35 Dose: Not Given Alprazolam (Xanax) 0.5 mg PO HS [facility] Last Admin: 06/16/18 23:02 Dose: 0.5 mg Amlodipine Besylate (Norvasc) 5 mg PO DAILY [facility] Last Admin: 06/17/18 10:55 Dose: 5 mg Clopidogrel Bisulfate (Plavix) 75 mg PO DAILY [facility] Last Admin: 06/17/18 10:55 Dose: 75 mg Fluticasone/Vilanterol (Breo Ellipta 100-25 Mcg Inh) 1 puff INH RQ24 [facility] Furosemide (Lasix) 60 mg IVP DAILY [facility] Last Admin: 06/17/18 10:55 Dose: 60 mg Vancomycin/Sodium Chloride (Vancomycin 1 Gm/Ns 200 Ml) 1 gm in 200 mls @ 166.7 mls/hr IVPB Q24H [facility]; Protocol Stop: 06/21/18 15:16 Last Admin: 06/17/18 14:14 Dose: 166.7 mls/hr Cefepime HCl (Maxipime Iv 1 Gm Premix) 1 gm in 50 mls @ 100 mls/hr IVPB Q12H [facility]; Protocol Last Admin: 06/17/18 10:56 Dose: 100 mls/hr Methylprednisolone (Solu-Medrol) 40 mg IVP Q8 [facility] Last Admin: 06/17/18 13:24 Dose: 40 mg Pantoprazole Sodium (Protonix Ec Tab) 40 mg PO DAILY [facility] Last Admin: 06/17/18 10:55 Dose: 40 mg Roflumilast (Daliresp) 500 mcg PO DAILY [facility] Last Admin: 06/17/18 10:55 Dose: 500 mcg Rosuvastatin Calcium (Crestor) 10 mg PO HS [facility] Last Admin: 06/16/18 23:02 Dose: 10 mg Tramadol HCl (Ultram) 50 mg PO TID PRN PRN Reason: Pain, moderate (4-7) Last Admin: 06/14/18 22:21 Dose: 50 mg Vitamin B Complex/Vitamin C (Berocca) 1 tab PO DAILY [facility] Last Admin: 06/17/18 10:55 Dose: 1 tab - Labs Labs: 06/16/18 07:59 06/16/18 07:59 PT 11.4 SECONDS (9.7-12.2) 06/10/18 12:06 INR 1.0 06/10/18 12:06 APTT 32 SECONDS (21-34) 06/10/18 12:06 - Constitutional Appears: Well, Non-toxic, No Acute Distress - Head Exam Head Exam: ATRAUMATIC, NORMOCEPHALIC - Extremities Exam Additional comments: B/L LE focused exam: Dressings to bilateral LE clean/dry/intact with no strikethrough present VASC: DP/PT pulses non-palpable b/l. Cap refill <3 seconds to digits. +1 pitting edema noted b/l. Temperature gradient warm to warm with no increase in warmth to left lateral leg wound. NEURO: Gross sensation diminished. DERM: Venous stasis dermatitis present to legs circumferential b/l. Venous stasis wound noted to left lateral leg measuring approximately 8 x 6 cm with second wound more anterior measuring approximately 2 x 1 cm - both ulcers noted to have 100% granular base with serous drainage present; foul odor present. Weeping noted to areas of venous stasis dermatitis b/l. MSK: No pain on palpation to wound site. No pain upon calf squeeze b/l. - Neurological Exam Neurological Exam: Alert, Awake, Oriented x3 - Psychiatric Exam Psychiatric exam: Normal Affect, Normal Mood Assessment and Plan - Assessment and Plan (Free Text) Assessment: 83 y/o M patient with chronic venous stasis ulcerations LLE and b/l LE edema Plan: Patient seen and evaluated with attending, Dr. Morrell Plan discussed with Dr. Morrell Charts, labs and vitals reviewed; Afebrile, No Leukocytosis Continue local wound care - xeroform, DSD to the left; MERLENE b/l Continue abx per primary - Ceftriaxone Activity: WBAT Podiatry will continue to follow up the patient while in house.
--- NOTE | 2018-06-17 18:57 | CON ---
DATE: 06/17/2018 ATTENDING PHYSICIAN Glendy Maxwell MD. LOCATION: The patient's room number 672. REASON FOR CONSULTATION: Change in mental status. CHIEF COMPLAINT: The patient was admitted with history of multiple medical problems. From neurological point of view, I was called into evaluate him for further management. HISTORY OF PRESENTING ILLNESS: Mr. Paul Reyes is an 83-year-old morbidly obese right-handed is Yi-speaking male presenting with change in mental status due to his underlying medical problem. No history of loss of consciousness. No history of involuntary movements being documented. No history of bowel and bladder incontinence while he is in the hospital. PAST MEDICAL HISTORY: Significant for COPD and oxygen dependent. Congestive heart failure, heart block with pacemaker. ALLERGIES: No known allergies. REVIEW OF SYSTEMS: 12-point system being reviewed. From neuro, change in mental status. PHYSICAL EXAMINATION: VITAL SIGNS: Blood pressure 143/70, mean artery pressure of 94, respiratory rate 18 and pulse rate 79 irregular, temperature 97.7. The patient is sitting in the cardiac chair with BiPAP. The patient is awake, seems to be drowsy. He knows he is in a hospital. He feels cold. He does not want to cooperate with me from the beginning. He knows the year. His speech is fluent. No confusion. He seems to be depressed. No sign of hallucination, no suicidal ideation. Cranial nerve examination, respond to visual threat. Pupil reactive to light. Extraocular movement markedly decreased in all direction. No facial sensory deficit. No facial asymmetry. Hearing is normal. Tongue is moist. Good gag. Motor examination he has generalized weakness on legs more than his arms. 3+ pitting edema in both lower extremities. Mild tremor on outstretched hand with eyes closed, no asterixis. Finger-nose testing and gait is deferred at this time. Deep tendon reflexes are absent. Plantars are mute. Sensory examination is neuropathy which is incidental finding. CONCLUSION: 1. Mr. Paul Reyes been presenting with probable hypoxic encephalopathy superimposed with metabolic and electrolyte derangement. 2. The patient also is suffering from peripheral neuropathy which is a longstanding incidental finding. 3. 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 RECOMMENDATIONS: 1. Check CT of the head without contrast to rule out any acute pathology. 2. Electroencephalogram to rule out any paroxysmal activities. 3. Correct the electrolytes and Cardiology and Pulmonary to follow him for his cardiopulmonary dysfunction. 4. Physical therapy should be entertained. DVT prophylaxis. 5. The patient will be followed while he is in the hospital. Seven Novoa MD
--- NOTE | 2018-06-17 19:07 | CP.PCM.PN ---
Subjective - Date & Time of Evaluation Date of Evaluation: 06/17/18 Time of Evaluation: 10:30 - Subjective Subjective: clinically same Objective - Vital Signs/Intake and Output Vital Signs (last 24 hours): Temp Pulse Resp BP Pulse Ox 98.0 F 65 20 127/60 96 06/17/18 07:45 06/17/18 08:36 06/17/18 07:45 06/17/18 10:55 06/17/18 07:45 - Medications Medications: Current Medications Albuterol/Ipratropium (Duoneb 3 Mg/0.5 Mg (3 Ml) Ud) 3 ml INH RQ6 [facility] Last Admin: 06/17/18 13:35 Dose: Not Given Alprazolam (Xanax) 0.5 mg PO HS [facility] Last Admin: 06/16/18 23:02 Dose: 0.5 mg Amlodipine Besylate (Norvasc) 5 mg PO DAILY [facility] Last Admin: 06/17/18 10:55 Dose: 5 mg Clopidogrel Bisulfate (Plavix) 75 mg PO DAILY [facility] Last Admin: 06/17/18 10:55 Dose: 75 mg Fluticasone/Vilanterol (Breo Ellipta 100-25 Mcg Inh) 1 puff INH RQ24 [facility] Furosemide (Lasix) 60 mg IVP DAILY [facility] Last Admin: 06/17/18 10:55 Dose: 60 mg Vancomycin/Sodium Chloride (Vancomycin 1 Gm/Ns 200 Ml) 1 gm in 200 mls @ 166.7 mls/hr IVPB Q24H [facility]; Protocol Stop: 06/21/18 15:16 Last Admin: 06/17/18 14:14 Dose: 166.7 mls/hr Cefepime HCl (Maxipime Iv 1 Gm Premix) 1 gm in 50 mls @ 100 mls/hr IVPB Q12H [facility]; Protocol Last Admin: 06/17/18 10:56 Dose: 100 mls/hr Methylprednisolone (Solu-Medrol) 40 mg IVP Q8 [facility] Last Admin: 06/17/18 13:24 Dose: 40 mg Pantoprazole Sodium (Protonix Ec Tab) 40 mg PO DAILY [facility] Last Admin: 06/17/18 10:55 Dose: 40 mg Roflumilast (Daliresp) 500 mcg PO DAILY [facility] Last Admin: 06/17/18 10:55 Dose: 500 mcg Rosuvastatin Calcium (Crestor) 10 mg PO HS [facility] Last Admin: 06/16/18 23:02 Dose: 10 mg Tramadol HCl (Ultram) 50 mg PO TID PRN PRN Reason: Pain, moderate (4-7) Last Admin: 06/14/18 22:21 Dose: 50 mg Vitamin B Complex/Vitamin C (Berocca) 1 tab PO DAILY [facility] Last Admin: 06/17/18 10:55 Dose: 1 tab - Labs Labs: 06/16/18 07:59 06/16/18 07:59 PT 11.4 SECONDS (9.7-12.2) 06/10/18 12:06 INR 1.0 06/10/18 12:06 APTT 32 SECONDS (21-34) 06/10/18 12:06 - Constitutional Appears: Well - Head Exam Head Exam: ATRAUMATIC, NORMAL INSPECTION, NORMOCEPHALIC - Eye Exam Eye Exam: EOMI, Normal appearance, PERRL Pupil Exam: NORMAL ACCOMODATION, PERRL - ENT Exam ENT Exam: Mucous Membranes Moist, Normal Exam - Neck Exam Neck Exam: Full ROM, Normal Inspection. absent: Lymphadenopathy - Respiratory Exam Respiratory Exam: Decreased Breath Sounds - Cardiovascular Exam Cardiovascular Exam: REGULAR RHYTHM, +S1, +S2 - GI/Abdominal Exam GI & Abdominal Exam: Soft, Diminished Bowel Sounds - Rectal Exam Rectal Exam: Deferred
--- NOTE | 2018-06-17 20:26 | CP.PCM.PN ---
Subjective - Date & Time of Evaluation Date of Evaluation: 06/17/18 Time of Evaluation: 20:24 - Subjective Subjective: Pt is seen and examined Off BiPAP Awake and alert no complains Mildly dyspnic Objective - Vital Signs/Intake and Output Vital Signs (last 24 hours): Temp Pulse Resp BP Pulse Ox 98.0 F 65 20 127/60 96 06/17/18 07:45 06/17/18 08:36 06/17/18 07:45 06/17/18 10:55 06/17/18 07:45 - Medications Medications: Current Medications Albuterol/Ipratropium (Duoneb 3 Mg/0.5 Mg (3 Ml) Ud) 3 ml INH RQ6 [facility] Last Admin: 06/17/18 13:35 Dose: Not Given Alprazolam (Xanax) 0.5 mg PO HS [facility] Last Admin: 06/16/18 23:02 Dose: 0.5 mg Amlodipine Besylate (Norvasc) 5 mg PO DAILY [facility] Last Admin: 06/17/18 10:55 Dose: 5 mg Clopidogrel Bisulfate (Plavix) 75 mg PO DAILY [facility] Last Admin: 06/17/18 10:55 Dose: 75 mg Fluticasone/Vilanterol (Breo Ellipta 100-25 Mcg Inh) 1 puff INH RQ24 [facility] Furosemide (Lasix) 60 mg IVP DAILY [facility] Last Admin: 06/17/18 10:55 Dose: 60 mg Vancomycin/Sodium Chloride (Vancomycin 1 Gm/Ns 200 Ml) 1 gm in 200 mls @ 166.7 mls/hr IVPB Q24H [facility]; Protocol Stop: 06/21/18 15:16 Last Admin: 06/17/18 14:14 Dose: 166.7 mls/hr Cefepime HCl (Maxipime Iv 1 Gm Premix) 1 gm in 50 mls @ 100 mls/hr IVPB Q12H [facility]; Protocol Last Admin: 06/17/18 10:56 Dose: 100 mls/hr Methylprednisolone (Solu-Medrol) 40 mg IVP Q8 [facility] Last Admin: 06/17/18 13:24 Dose: 40 mg Pantoprazole Sodium (Protonix Ec Tab) 40 mg PO DAILY [facility] Last Admin: 06/17/18 10:55 Dose: 40 mg Roflumilast (Daliresp) 500 mcg PO DAILY [facility] Last Admin: 06/17/18 10:55 Dose: 500 mcg Rosuvastatin Calcium (Crestor) 10 mg PO HS [facility] Last Admin: 06/16/18 23:02 Dose: 10 mg Tramadol HCl (Ultram) 50 mg PO TID PRN PRN Reason: Pain, moderate (4-7) Last Admin: 06/14/18 22:21 Dose: 50 mg Vitamin B Complex/Vitamin C (Berocca) 1 tab PO DAILY [facility] Last Admin: 06/17/18 10:55 Dose: 1 tab - Labs Labs: 06/16/18 07:59 06/16/18 07:59 PT 11.4 SECONDS (9.7-12.2) 06/10/18 12:06 INR 1.0 06/10/18 12:06 APTT 32 SECONDS (21-34) 06/10/18 12:06 - Head Exam Head Exam: NORMAL INSPECTION - Eye Exam Eye Exam: Normal appearance - ENT Exam ENT Exam: Mucous Membranes Moist - Respiratory Exam Respiratory Exam: Clear to Ausculation Bilateral - GI/Abdominal Exam GI & Abdominal Exam: Soft, Normal Bowel Sounds - Extremities Exam Extremities Exam: Pedal Edema - Neurological Exam Neurological Exam: Alert, Awake Assessment and Plan (1) Acute exacerbation of CHF (congestive heart failure) Status: Acute (2) Dyspnea Status: Acute (3) Respiratory failure with hypoxia and hypercapnia Status: Acute (4) COPD (chronic obstructive pulmonary disease) Status: Chronic - Assessment and Plan (Free Text) Plan: Abx BiPAP at needed and at night Bronchodilators Steroids Lasix Advair One dose of diamox in am DVT/GI prophalaxis
[2018-06-18] MEDS: Albuterol-Ipratrop 3 mg / 0.5 (3 ml) UD INH SCH ×4 (01:30→20:55)
[2018-06-18] MEDS: MethylPREDNISolone 40 mg Vial IVP SCH ×3 (05:07→22:00)
--- NOTE | 2018-06-18 11:18 | CP.PCM.PN ---
Subjective - Date & Time of Evaluation Date of Evaluation: 06/18/18 Time of Evaluation: 08:00 - Subjective Subjective: afeb cultures neg thus far less confused Objective - Vital Signs/Intake and Output Vital Signs (last 24 hours): Temp Pulse Resp BP Pulse Ox 97.9 F 71 20 125/57 L 95 06/18/18 07:00 06/18/18 07:00 06/18/18 07:00 06/18/18 07:00 06/18/18 07:00 Intake and Output: 06/18/18 06/18/18 06:59 18:59 Output Total 1050 Balance -1050 - Medications Medications: Current Medications Acetazolamide (Diamox 250 Mg Tab) 250 mg PO BID [facility] Albuterol/Ipratropium (Duoneb 3 Mg/0.5 Mg (3 Ml) Ud) 3 ml INH RQ6 [facility] Last Admin: 06/18/18 09:22 Dose: 3 ml Alprazolam (Xanax) 0.5 mg PO HS [facility] Last Admin: 06/17/18 21:23 Dose: 0.5 mg Amlodipine Besylate (Norvasc) 5 mg PO DAILY [facility] Last Admin: 06/17/18 10:55 Dose: 5 mg Clopidogrel Bisulfate (Plavix) 75 mg PO DAILY [facility] Last Admin: 06/17/18 10:55 Dose: 75 mg Fluticasone/Vilanterol (Breo Ellipta 100-25 Mcg Inh) 1 puff INH RQ24 [facility] Furosemide (Lasix) 60 mg IVP DAILY [facility] Last Admin: 06/17/18 10:55 Dose: 60 mg Vancomycin/Sodium Chloride (Vancomycin 1 Gm/Ns 200 Ml) 1 gm in 200 mls @ 166.7 mls/hr IVPB Q24H [facility]; Protocol Stop: 06/21/18 15:16 Last Admin: 06/17/18 14:14 Dose: 166.7 mls/hr Cefepime HCl (Maxipime Iv 1 Gm Premix) 1 gm in 50 mls @ 100 mls/hr IVPB Q12H [facility]; Protocol Last Admin: 06/17/18 21:24 Dose: 100 mls/hr Methylprednisolone (Solu-Medrol) 40 mg IVP Q8 [facility] Last Admin: 06/18/18 05:07 Dose: 40 mg Pantoprazole Sodium (Protonix Ec Tab) 40 mg PO DAILY [facility] Last Admin: 06/17/18 10:55 Dose: 40 mg Roflumilast (Daliresp) 500 mcg PO DAILY [facility] Last Admin: 06/17/18 10:55 Dose: 500 mcg Rosuvastatin Calcium (Crestor) 10 mg PO HS [facility] Last Admin: 06/17/18 21:23 Dose: 10 mg Tramadol HCl (Ultram) 50 mg PO TID PRN PRN Reason: Pain, moderate (4-7) Last Admin: 06/14/18 22:21 Dose: 50 mg Vitamin B Complex/Vitamin C (Berocca) 1 tab PO DAILY [facility] Last Admin: 06/17/18 10:55 Dose: 1 tab - Labs Labs: 06/16/18 07:59 06/16/18 07:59 PT 11.4 SECONDS (9.7-12.2) 06/10/18 12:06 INR 1.0 06/10/18 12:06 APTT 32 SECONDS (21-34) 06/10/18 12:06 - Constitutional Appears: Non-toxic - Head Exam Head Exam: NORMOCEPHALIC - Eye Exam Eye Exam: absent: Scleral icterus - ENT Exam ENT Exam: Mucous Membranes Dry - Neck Exam Neck Exam: absent: Lymphadenopathy - Respiratory Exam Respiratory Exam: Decreased Breath Sounds - Cardiovascular Exam Cardiovascular Exam: REGULAR RHYTHM - GI/Abdominal Exam GI & Abdominal Exam: Distended - Rectal Exam Rectal Exam: Deferred - Exam Exam: NORMAL INSPECTION - Extremities Exam Extremities Exam: Pedal Edema - Back Exam Back Exam: absent: CVA tenderness (L), CVA tenderness (R) - Neurological Exam Neurological Exam: Alert, Awake Assessment and Plan (1) Acute exacerbation of CHF (congestive heart failure) Status: Acute (2) Bilateral cellulitis of lower leg Status: Acute (3) CAD (coronary artery disease) Status: Acute (4) COPD (chronic obstructive pulmonary disease) Status: Chronic (5) Hypertension Status: Chronic - Assessment and Plan (Free Text) Assessment: cont rx for cellulitis
--- NOTE | 2018-06-18 11:28 | VASCLAB ---
Date of service: 06/17/2018 PROCEDURE: Lower Extremity Venous Duplex Exam. HISTORY: DVT PRIORS: None. TECHNIQUE: Bilateral common femoral, femoral, popliteal and posterior tibial, peroneal and great saphenous veins were evaluated. Flow was assessed with color Doppler, compressibility, assessment of phasic flow and augmentation response. Report prepared by ZULY Muñoz FINDINGS: RIGHT: 1. Common Femoral Vein: 1.1. Compressibility - Fully compressible: Thrombus - None : Flow - Phasic: Augmentation -Normal: Reflux - None. 2. Femoral Vein: 2.1. Compressibility - Fully compressible: Thrombus - None : Flow - Phasic: Augmentation -Normal: Reflux - None. 3. Popliteal Vein: 3.1. Compressibility - Fully compressible: Thrombus - None : Flow - Phasic: Augmentation -Normal: Reflux - None. 4. Posterior Tibial Vein: 4.1. Compressibility - Fully compressible: Thrombus - None: Flow - Phasic: Augmentation -Normal: Reflux - None. 5. Peroneal Vein: 5.1. Unable to clearly image due to edema 6. Great Saphenous Vein: 6.1. Compressibility - Fully compressible: Thrombus - None: Flow - Phasic: Augmentation - Normal: Reflux - None. LEFT: 1. Common Femoral Vein: 1.1. Compressibility - Fully compressible: Thrombus - None: Flow - Phasic: Augmentation -Normal: Reflux - None. 2. Femoral Vein: 2.1. Compressibility - Fully compressible: Thrombus - None: Flow - Phasic: Augmentation -Normal: Reflux - None. 3. Popliteal Vein: 3.1. Compressibility - Fully compressible: Thrombus - None : Flow - Phasic: Augmentation -Normal: Reflux - None. 4. Posterior Tibial Vein: 4.1. Unable to clearly image due to edema 5. Peroneal Vein: 5.1. Unable to clearly image due to edema 6. Great Saphenous Vein: 6.1. Compressibility - Fully compressible: Thrombus - None: Flow - Phasic: Augmentation - Normal: Reflux - None. OTHER FINDINGS: Right: Unable to visualize the right peroneal veins due to swelling. Left: Unable to visualize the left posterior tibial and peroneal veins due to swelling. IMPRESSION: No evidence of deep or superficial vein thrombosis of bilateral lower extremities, for the examined veins.
[2018-06-18] MEDS: Pantoprazole 40 mg EC Tab PO SCH (11:38)
[2018-06-18] MEDS: Cefepime IV 1 gm in Dextrose 1 GM/50 ML BAG IVPB SCH ×2 (11:38→22:00)
[2018-06-18] MEDS: Vitamin B Complex/Vitamin C Tab PO SCH (11:38)
--- NOTE | 2018-06-18 12:09 | PN ---
DATE: 06/18/2018 TIME OF EVALUATION: 07:05 a.m. NEUROLOGICAL PROBLEM: Metabolic encephalopathy/hypoxic encephalopathy. PHYSICAL EXAMINATION: VITAL SIGNS: Blood pressure 117/65, mean artery pressure of 82, respiratory rate 18-20, pulse rate 70, temperature 98.1. NEUROLOGIC: The patient is more awake, alert, concrete thinking. Speech is clear. No sign of confusion. No sign of retrograde amnesia. No sign of depression. He feels comfortable. However, he could not able to sleep last night. The patient is comfortably sitting in room air. His workup is on progress. The recent blood workup, BNP 6390. Procalcitonin 0.09. Prolactin 8.33. TSH 1.43. The patient will be followed closely with you. Seven Novoa MD
--- NOTE | 2018-06-18 14:08 | CP.PCM.PN ---
Subjective - Date & Time of Evaluation Date of Evaluation: 06/18/18 Time of Evaluation: 10:00 - Subjective Subjective: clinically same Objective - Vital Signs/Intake and Output Vital Signs (last 24 hours): Temp Pulse Resp BP Pulse Ox 97.9 F 69 20 143/70 95 06/18/18 07:00 06/18/18 07:30 06/18/18 07:00 06/18/18 11:42 06/18/18 07:00 Intake and Output: 06/18/18 06/18/18 06:59 18:59 Output Total 1050 Balance -1050 - Medications Medications: Current Medications Acetazolamide (Diamox 250 Mg Tab) 250 mg PO BID [facility] Last Admin: 06/18/18 11:38 Dose: 250 mg Albuterol/Ipratropium (Duoneb 3 Mg/0.5 Mg (3 Ml) Ud) 3 ml INH RQ6 [facility] Last Admin: 06/18/18 13:52 Dose: 3 ml Alprazolam (Xanax) 0.5 mg PO HS [facility] Last Admin: 06/17/18 21:23 Dose: 0.5 mg Amlodipine Besylate (Norvasc) 5 mg PO DAILY [facility] Last Admin: 06/18/18 11:38 Dose: 5 mg Clopidogrel Bisulfate (Plavix) 75 mg PO DAILY [facility] Last Admin: 06/18/18 11:37 Dose: 75 mg Fluticasone/Vilanterol (Breo Ellipta 100-25 Mcg Inh) 1 puff INH RQ24 [facility] Furosemide (Lasix) 60 mg IVP DAILY [facility] Last Admin: 06/18/18 11:42 Dose: 60 mg Vancomycin/Sodium Chloride (Vancomycin 1 Gm/Ns 200 Ml) 1 gm in 200 mls @ 166.7 mls/hr IVPB Q24H [facility]; Protocol Stop: 06/21/18 15:16 Last Admin: 06/17/18 14:14 Dose: 166.7 mls/hr Cefepime HCl (Maxipime Iv 1 Gm Premix) 1 gm in 50 mls @ 100 mls/hr IVPB Q12H [facility]; Protocol Last Admin: 06/18/18 11:38 Dose: 100 mls/hr Methylprednisolone (Solu-Medrol) 40 mg IVP Q8 [facility] Last Admin: 06/18/18 05:07 Dose: 40 mg Pantoprazole Sodium (Protonix Ec Tab) 40 mg PO DAILY [facility] Last Admin: 06/18/18 11:38 Dose: 40 mg Roflumilast (Daliresp) 500 mcg PO DAILY [facility] Last Admin: 06/18/18 11:37 Dose: 500 mcg Rosuvastatin Calcium (Crestor) 10 mg PO HS [facility] Last Admin: 06/17/18 21:23 Dose: 10 mg Tramadol HCl (Ultram) 50 mg PO TID PRN PRN Reason: Pain, moderate (4-7) Last Admin: 06/14/18 22:21 Dose: 50 mg Vitamin B Complex/Vitamin C (Berocca) 1 tab PO DAILY [facility] Last Admin: 06/18/18 11:38 Dose: 1 tab - Labs Labs: 06/16/18 07:59 06/16/18 07:59 PT 11.4 SECONDS (9.7-12.2) 06/10/18 12:06 INR 1.0 06/10/18 12:06 APTT 32 SECONDS (21-34) 06/10/18 12:06 - Constitutional Appears: Well - Head Exam Head Exam: ATRAUMATIC, NORMAL INSPECTION, NORMOCEPHALIC - Eye Exam Eye Exam: EOMI, Normal appearance, PERRL Pupil Exam: NORMAL ACCOMODATION, PERRL - ENT Exam ENT Exam: Mucous Membranes Moist, Normal Exam - Neck Exam Neck Exam: Full ROM, Normal Inspection. absent: Lymphadenopathy - Respiratory Exam Respiratory Exam: Decreased Breath Sounds - Cardiovascular Exam Cardiovascular Exam: REGULAR RHYTHM, +S1, +S2 - GI/Abdominal Exam GI & Abdominal Exam: Soft, Diminished Bowel Sounds - Rectal Exam Rectal Exam: Deferred
[2018-06-18] MEDS: Vancomycin 1 gm/NS 200 ml 1 GM/200 ML BAG IVPB SCH (14:24)
--- NOTE | 2018-06-18 16:45 | CP.PCM.PN ---
Subjective - Date & Time of Evaluation Date of Evaluation: 06/18/18 Time of Evaluation: 16:42 - Subjective Subjective: Podiatry Progress note for Dr. Morrell 83M patient seen and evaluated for LLE wound and bilateral LE edema. Patient OOB in recliner. NAD. No acute events overnight. No new lower extremity complaints. Objective - Vital Signs/Intake and Output Vital Signs (last 24 hours): Temp Pulse Resp BP Pulse Ox 97.9 F 69 20 143/70 95 06/18/18 07:00 06/18/18 07:30 06/18/18 07:00 06/18/18 11:42 06/18/18 07:00 Intake and Output: 06/18/18 06/18/18 06:59 18:59 Intake Total 700 Output Total 1050 500 Balance -1050 200 - Medications Medications: Current Medications Acetazolamide (Diamox 250 Mg Tab) 250 mg PO BID [facility] Last Admin: 06/18/18 11:38 Dose: 250 mg Albuterol/Ipratropium (Duoneb 3 Mg/0.5 Mg (3 Ml) Ud) 3 ml INH RQ6 [facility] Last Admin: 06/18/18 13:52 Dose: 3 ml Alprazolam (Xanax) 0.5 mg PO HS [facility] Last Admin: 06/17/18 21:23 Dose: 0.5 mg Amlodipine Besylate (Norvasc) 5 mg PO DAILY [facility] Last Admin: 06/18/18 11:38 Dose: 5 mg Clopidogrel Bisulfate (Plavix) 75 mg PO DAILY [facility] Last Admin: 06/18/18 11:37 Dose: 75 mg Fluticasone/Vilanterol (Breo Ellipta 100-25 Mcg Inh) 1 puff INH RQ24 [facility] Furosemide (Lasix) 60 mg IVP DAILY [facility] Last Admin: 06/18/18 11:42 Dose: 60 mg Vancomycin/Sodium Chloride (Vancomycin 1 Gm/Ns 200 Ml) 1 gm in 200 mls @ 166.7 mls/hr IVPB Q24H [facility]; Protocol Stop: 06/21/18 15:16 Last Admin: 06/18/18 14:24 Dose: 166.7 mls/hr Cefepime HCl (Maxipime Iv 1 Gm Premix) 1 gm in 50 mls @ 100 mls/hr IVPB Q12H [facility]; Protocol Last Admin: 06/18/18 11:38 Dose: 100 mls/hr Methylprednisolone (Solu-Medrol) 40 mg IVP Q8 [facility] Last Admin: 06/18/18 14:23 Dose: 40 mg Pantoprazole Sodium (Protonix Ec Tab) 40 mg PO DAILY [facility] Last Admin: 06/18/18 11:38 Dose: 40 mg Roflumilast (Daliresp) 500 mcg PO DAILY [facility] Last Admin: 06/18/18 11:37 Dose: 500 mcg Rosuvastatin Calcium (Crestor) 10 mg PO HS [facility] Last Admin: 06/17/18 21:23 Dose: 10 mg Tramadol HCl (Ultram) 50 mg PO TID PRN PRN Reason: Pain, moderate (4-7) Last Admin: 06/14/18 22:21 Dose: 50 mg Vitamin B Complex/Vitamin C (Berocca) 1 tab PO DAILY [facility] Last Admin: 06/18/18 11:38 Dose: 1 tab - Labs Labs: 06/16/18 07:59 06/16/18 07:59 PT 11.4 SECONDS (9.7-12.2) 06/10/18 12:06 INR 1.0 06/10/18 12:06 APTT 32 SECONDS (21-34) 06/10/18 12:06 - Constitutional Appears: Non-toxic, No Acute Distress - Extremities Exam Additional comments: Dressing to LLE clean/dry/intact with no strikethrough present Neurovascular status intact to digits ROM present w/o pain - Neurological Exam Neurological Exam: Alert, Awake, Oriented x3 - Psychiatric Exam Psychiatric exam: Normal Affect, Normal Mood Assessment and Plan - Assessment and Plan (Free Text) Assessment: 83 y/o M patient with chronic venous stasis ulcerations LLE and b/l LE edema Plan: Patient seen and evaluated Discussed with attending, Dr. Porsche Ceron Continue local wound care - xeroform, DSD to the left; MERLENE b/l Continue abx - Ceftriaxone, Vancomycin Activity: WBAT Podiatry will continue to follow
--- NOTE | 2018-06-18 18:03 | CP.PCM.PN ---
Subjective - Date & Time of Evaluation Date of Evaluation: 06/18/18 Time of Evaluation: 18:03 - Subjective Subjective: Pt is seen and examined Reports dyspnea Objective - Vital Signs/Intake and Output Vital Signs (last 24 hours): Temp Pulse Resp BP Pulse Ox 97.9 F 84 20 118/59 L 95 06/18/18 15:00 06/18/18 15:00 06/18/18 15:00 06/18/18 15:00 06/18/18 15:00 Intake and Output: 06/18/18 06/18/18 06:59 18:59 Intake Total 700 Output Total 1050 500 Balance -1050 200 - Medications Medications: Current Medications Acetazolamide (Diamox 250 Mg Tab) 250 mg PO BID [facility] Last Admin: 06/18/18 17:30 Dose: 250 mg Albuterol/Ipratropium (Duoneb 3 Mg/0.5 Mg (3 Ml) Ud) 3 ml INH RQ6 [facility] Last Admin: 06/18/18 13:52 Dose: 3 ml Alprazolam (Xanax) 0.5 mg PO HS [facility] Last Admin: 06/17/18 21:23 Dose: 0.5 mg Amlodipine Besylate (Norvasc) 5 mg PO DAILY [facility] Last Admin: 06/18/18 11:38 Dose: 5 mg Clopidogrel Bisulfate (Plavix) 75 mg PO DAILY [facility] Last Admin: 06/18/18 11:37 Dose: 75 mg Fluticasone/Vilanterol (Breo Ellipta 100-25 Mcg Inh) 1 puff INH RQ24 [facility] Furosemide (Lasix) 60 mg IVP DAILY [facility] Last Admin: 06/18/18 11:42 Dose: 60 mg Vancomycin/Sodium Chloride (Vancomycin 1 Gm/Ns 200 Ml) 1 gm in 200 mls @ 166.7 mls/hr IVPB Q24H [facility]; Protocol Stop: 06/21/18 15:16 Last Admin: 06/18/18 14:24 Dose: 166.7 mls/hr Cefepime HCl (Maxipime Iv 1 Gm Premix) 1 gm in 50 mls @ 100 mls/hr IVPB Q12H [facility]; Protocol Last Admin: 06/18/18 11:38 Dose: 100 mls/hr Methylprednisolone (Solu-Medrol) 40 mg IVP Q8 [facility] Last Admin: 06/18/18 14:23 Dose: 40 mg Pantoprazole Sodium (Protonix Ec Tab) 40 mg PO DAILY [facility] Last Admin: 06/18/18 11:38 Dose: 40 mg Roflumilast (Daliresp) 500 mcg PO DAILY [facility] Last Admin: 06/18/18 11:37 Dose: 500 mcg Rosuvastatin Calcium (Crestor) 10 mg PO HS [facility] Last Admin: 06/17/18 21:23 Dose: 10 mg Tramadol HCl (Ultram) 50 mg PO TID PRN PRN Reason: Pain, moderate (4-7) Last Admin: 06/14/18 22:21 Dose: 50 mg Vitamin B Complex/Vitamin C (Berocca) 1 tab PO DAILY [facility] Last Admin: 06/18/18 11:38 Dose: 1 tab - Labs Labs: 06/16/18 07:59 06/16/18 07:59 PT 11.4 SECONDS (9.7-12.2) 06/10/18 12:06 INR 1.0 06/10/18 12:06 APTT 32 SECONDS (21-34) 06/10/18 12:06 - Eye Exam Eye Exam: Normal appearance - ENT Exam ENT Exam: Mucous Membranes Moist - Respiratory Exam Respiratory Exam: Decreased Breath Sounds, Rhonchi - Cardiovascular Exam Cardiovascular Exam: REGULAR RHYTHM, +S1, +S2 - GI/Abdominal Exam GI & Abdominal Exam: Soft, Normal Bowel Sounds - Extremities Exam Extremities Exam: Normal Inspection Assessment and Plan (1) Acute exacerbation of CHF (congestive heart failure) Status: Acute (2) Dyspnea Status: Acute (3) Respiratory failure with hypoxia and hypercapnia Status: Acute (4) COPD (chronic obstructive pulmonary disease) Status: Chronic - Assessment and Plan (Free Text) Plan: Bronchodilators O2 supplementation Continue Abx BiPAP as needed Steroids Breo Ellipta Lasix DVT/GI prophalaxis
[2018-06-19] MEDS: Albuterol-Ipratrop 3 mg / 0.5 (3 ml) UD INH SCH ×4 (01:25→19:37)
[2018-06-19] MEDS: MethylPREDNISolone 40 mg Vial IVP SCH ×3 (05:12→22:02)
[2018-06-19] MEDS: Cefepime IV 1 gm in Dextrose 1 GM/50 ML BAG IVPB SCH ×2 (11:00→22:00)
[2018-06-19] MEDS: Vitamin B Complex/Vitamin C Tab PO SCH (11:00)
[2018-06-19] MEDS: Pantoprazole 40 mg EC Tab PO SCH (11:00)
[2018-06-19 11:59] LABS: HEMOGLOBIN 9.5 g/dL (12.0-18.0); LYMPH # 0.3 K/uL (1.0-4.3); LYMPH % 3.6 % (20.0-40.0); MEAN CELL VOLUME 84.2 fL (80.0-94.0); MEAN CORPUSCULAR HEMOGLOBIN 27.6 pg (27.0-31.0); MEAN CORPUSCULAR HGB CONC 32.7 g/dL (33.0-37.0); MEAN PLATELET VOLUME 7.6 fL (7.2-11.7); MONO # 0.3 K/uL (0.0-0.8); MONO % 3.3 % (0.0-10.0); NEUT # 8.7 K/uL (1.8-7.0); NEUT % 93.1 % (50.0-75.0); PLATELET COUNT 296 K/uL (130-400); RBC 3.45 Mil/uL (4.40-5.90); RED CELL DISTRIBUTION WIDTH 13.7 % (11.5-14.5); WHITE BLOOD COUNT 9.3 K/uL (4.8-10.8)
[2018-06-19 12:30] LABS: ANISOCYTOSIS SLIGHT; HYPOCHROMIC SLIGHT; LYMPHOCYTE 4 % (20-40); MONOCYTE 4 % (0-10); NEUTROPHIL 92 % (50-75); PLATELET ESTIMATE NORMAL (NORMAL); POIKILOCYTOSIS SLIGHT; TOTAL CELLS COUNTED 100
[2018-06-19 12:31] LABS: OVALOCYTES SLIGHT
[2018-06-19 12:36] LABS: CALCIUM 8.7 mg/dl (8.6-10.4)
[2018-06-19] MEDS: Vancomycin 1 gm/NS 200 ml 1 GM/200 ML BAG IVPB SCH (14:20)
--- NOTE | 2018-06-19 15:45 | CP.PCM.PN ---
Subjective - Date & Time of Evaluation Date of Evaluation: 06/19/18 Time of Evaluation: 15:45 - Subjective Subjective: Pt is seen and examined Mildly dyspnic Objective - Vital Signs/Intake and Output Vital Signs (last 24 hours): Temp Pulse Resp BP Pulse Ox 97.9 F 74 20 144/57 L 92 L 06/19/18 08:00 06/19/18 08:00 06/19/18 08:00 06/19/18 11:00 06/19/18 08:00 Intake and Output: 06/19/18 06/19/18 06:59 18:59 Intake Total 60 Output Total 600 Balance -540 - Medications Medications: Current Medications Acetazolamide (Diamox 250 Mg Tab) 250 mg PO BID [facility] Last Admin: 06/19/18 11:00 Dose: 250 mg Albuterol/Ipratropium (Duoneb 3 Mg/0.5 Mg (3 Ml) Ud) 3 ml INH RQ6 [facility] Last Admin: 06/19/18 14:18 Dose: 3 ml Alprazolam (Xanax) 0.5 mg PO HS [facility] Last Admin: 06/18/18 22:00 Dose: 0.5 mg Amlodipine Besylate (Norvasc) 5 mg PO DAILY [facility] Last Admin: 06/19/18 10:56 Dose: 5 mg Clopidogrel Bisulfate (Plavix) 75 mg PO DAILY [facility] Last Admin: 06/19/18 11:00 Dose: 75 mg Fluticasone/Vilanterol (Breo Ellipta 100-25 Mcg Inh) 1 puff INH RQ24 [facility] Furosemide (Lasix) 60 mg IVP DAILY [facility] Last Admin: 06/19/18 11:00 Dose: 60 mg Vancomycin/Sodium Chloride (Vancomycin 1 Gm/Ns 200 Ml) 1 gm in 200 mls @ 166.7 mls/hr IVPB Q24H [facility]; Protocol Stop: 06/21/18 15:16 Last Admin: 06/19/18 14:20 Dose: 166.7 mls/hr Cefepime HCl (Maxipime Iv 1 Gm Premix) 1 gm in 50 mls @ 100 mls/hr IVPB Q12H [facility]; Protocol Last Admin: 06/19/18 11:00 Dose: 100 mls/hr Methylprednisolone (Solu-Medrol) 40 mg IVP Q8 [facility] Last Admin: 06/19/18 13:52 Dose: 40 mg Pantoprazole Sodium (Protonix Ec Tab) 40 mg PO DAILY [facility] Last Admin: 06/19/18 11:00 Dose: 40 mg Roflumilast (Daliresp) 500 mcg PO DAILY [facility] Last Admin: 06/19/18 11:00 Dose: 500 mcg Rosuvastatin Calcium (Crestor) 10 mg PO HS [facility] Last Admin: 06/18/18 22:00 Dose: 10 mg Tramadol HCl (Ultram) 50 mg PO TID PRN PRN Reason: Pain, moderate (4-7) Last Admin: 06/14/18 22:21 Dose: 50 mg Vitamin B Complex/Vitamin C (Berocca) 1 tab PO DAILY [facility] Last Admin: 06/19/18 11:00 Dose: 1 tab - Labs Labs: 06/19/18 10:58 06/19/18 10:58 PT 11.4 SECONDS (9.7-12.2) 06/10/18 12:06 INR 1.0 06/10/18 12:06 APTT 32 SECONDS (21-34) 06/10/18 12:06 - Head Exam Head Exam: NORMAL INSPECTION - Eye Exam Eye Exam: Normal appearance - ENT Exam ENT Exam: Mucous Membranes Moist - Respiratory Exam Respiratory Exam: Clear to Ausculation Bilateral - Cardiovascular Exam Cardiovascular Exam: REGULAR RHYTHM - GI/Abdominal Exam GI & Abdominal Exam: Soft, Normal Bowel Sounds - Neurological Exam Neurological Exam: Alert, Awake Assessment and Plan (1) Acute exacerbation of CHF (congestive heart failure) Status: Acute (2) Dyspnea Status: Acute (3) Respiratory failure with hypoxia and hypercapnia Status: Acute (4) COPD (chronic obstructive pulmonary disease) Status: Chronic - Assessment and Plan (Free Text) Plan: Bronchodilators O2 supplementation Continue Abx BiPAP as needed Steroids Breo Ellipta Diamox DVT/GI prophalaxis
--- NOTE | 2018-06-19 17:08 | CP.PCM.PN ---
Subjective - Date & Time of Evaluation Date of Evaluation: 06/19/18 Time of Evaluation: 17:07 - Subjective Subjective: Feels better. denies shortness of breath Objective - Vital Signs/Intake and Output Vital Signs (last 24 hours): Temp Pulse Resp BP Pulse Ox 97.7 F 69 20 125/70 95 06/19/18 15:23 06/19/18 15:23 06/19/18 15:23 06/19/18 15:23 06/19/18 15:23 Intake and Output: 06/19/18 06/19/18 06:59 18:59 Intake Total 60 Output Total 600 Balance -540 - Medications Medications: Current Medications Acetazolamide (Diamox 250 Mg Tab) 250 mg PO BID [facility] Last Admin: 06/19/18 11:00 Dose: 250 mg Albuterol/Ipratropium (Duoneb 3 Mg/0.5 Mg (3 Ml) Ud) 3 ml INH RQ6 [facility] Last Admin: 06/19/18 14:18 Dose: 3 ml Alprazolam (Xanax) 0.5 mg PO HS [facility] Last Admin: 06/18/18 22:00 Dose: 0.5 mg Amlodipine Besylate (Norvasc) 5 mg PO DAILY [facility] Last Admin: 06/19/18 10:56 Dose: 5 mg Clopidogrel Bisulfate (Plavix) 75 mg PO DAILY [facility] Last Admin: 06/19/18 11:00 Dose: 75 mg Fluticasone/Vilanterol (Breo Ellipta 100-25 Mcg Inh) 1 puff INH RQ24 [facility] Furosemide (Lasix) 60 mg IVP DAILY [facility] Last Admin: 06/19/18 11:00 Dose: 60 mg Vancomycin/Sodium Chloride (Vancomycin 1 Gm/Ns 200 Ml) 1 gm in 200 mls @ 166.7 mls/hr IVPB Q24H [facility]; Protocol Stop: 06/21/18 15:16 Last Admin: 06/19/18 14:20 Dose: 166.7 mls/hr Cefepime HCl (Maxipime Iv 1 Gm Premix) 1 gm in 50 mls @ 100 mls/hr IVPB Q12H [facility]; Protocol Last Admin: 06/19/18 11:00 Dose: 100 mls/hr Methylprednisolone (Solu-Medrol) 40 mg IVP Q8 [facility] Last Admin: 06/19/18 13:52 Dose: 40 mg Pantoprazole Sodium (Protonix Ec Tab) 40 mg PO DAILY [facility] Last Admin: 06/19/18 11:00 Dose: 40 mg Roflumilast (Daliresp) 500 mcg PO DAILY [facility] Last Admin: 06/19/18 11:00 Dose: 500 mcg Rosuvastatin Calcium (Crestor) 10 mg PO HS [facility] Last Admin: 06/18/18 22:00 Dose: 10 mg Tramadol HCl (Ultram) 50 mg PO TID PRN PRN Reason: Pain, moderate (4-7) Last Admin: 06/14/18 22:21 Dose: 50 mg Vitamin B Complex/Vitamin C (Berocca) 1 tab PO DAILY [facility] Last Admin: 06/19/18 11:00 Dose: 1 tab - Labs Labs: 06/19/18 10:58 06/19/18 10:58 PT 11.4 SECONDS (9.7-12.2) 06/10/18 12:06 INR 1.0 06/10/18 12:06 APTT 32 SECONDS (21-34) 06/10/18 12:06 Assessment and Plan - Assessment and Plan (Free Text) Assessment: - Constitutional Appears: No Acute Distress, Chronically Ill - Head Exam Head Exam: ATRAUMATIC, NORMAL INSPECTION, NORMOCEPHALIC - Eye Exam Eye Exam: EOMI, Normal appearance. absent: Scleral icterus - ENT Exam ENT Exam: Mucous Membranes Moist - Neck Exam Neck Exam: Full ROM, Normal Inspection. absent: Tenderness, Thyromegaly - Respiratory Exam Respiratory Exam: Decreased Breath Sounds, NORMAL BREATHING PATTERN Additional comments: bibasilar crep and interstitial breath sounds - Cardiovascular Exam Cardiovascular Exam: REGULAR RHYTHM, +S1, +S2. absent: Murmur - GI/Abdominal Exam GI & Abdominal Exam: Distended, Soft, Normal Bowel Sounds. 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 Sxs are c/w acute on chronic lung disease and ABE/Cor Pulmonale Chronic diuresis on lasix and diamox Continue agreessive wound care, CPAP titration, DVT prophylaxis CAD: stable on DAPT and statin, consider addition of imdur and ranexa PPM: 100% V. pacing
--- NOTE | 2018-06-19 18:38 | CP.PCM.PN ---
Subjective - Date & Time of Evaluation Date of Evaluation: 06/19/18 Time of Evaluation: 08:00 - Subjective Subjective: no fever cardio on board Objective - Vital Signs/Intake and Output Vital Signs (last 24 hours): Temp Pulse Resp BP Pulse Ox 97.7 F 69 20 125/70 95 06/19/18 15:23 06/19/18 15:23 06/19/18 15:23 06/19/18 15:23 06/19/18 15:23 Intake and Output: 06/19/18 06/19/18 06:59 18:59 Intake Total 60 250 Output Total 600 1000 Balance -540 -750 - Medications Medications: Current Medications Acetazolamide (Diamox 250 Mg Tab) 250 mg PO BID [facility] Last Admin: 06/19/18 11:00 Dose: 250 mg Albuterol/Ipratropium (Duoneb 3 Mg/0.5 Mg (3 Ml) Ud) 3 ml INH RQ6 [facility] Last Admin: 06/19/18 14:18 Dose: 3 ml Alprazolam (Xanax) 0.5 mg PO HS [facility] Last Admin: 06/18/18 22:00 Dose: 0.5 mg Amlodipine Besylate (Norvasc) 5 mg PO DAILY [facility] Last Admin: 06/19/18 10:56 Dose: 5 mg Clopidogrel Bisulfate (Plavix) 75 mg PO DAILY [facility] Last Admin: 06/19/18 11:00 Dose: 75 mg Fluticasone/Vilanterol (Breo Ellipta 100-25 Mcg Inh) 1 puff INH RQ24 [facility] Furosemide (Lasix) 60 mg IVP DAILY [facility] Last Admin: 06/19/18 11:00 Dose: 60 mg Vancomycin/Sodium Chloride (Vancomycin 1 Gm/Ns 200 Ml) 1 gm in 200 mls @ 166.7 mls/hr IVPB Q24H [facility]; Protocol Stop: 06/21/18 15:16 Last Admin: 06/19/18 14:20 Dose: 166.7 mls/hr Cefepime HCl (Maxipime Iv 1 Gm Premix) 1 gm in 50 mls @ 100 mls/hr IVPB Q12H [facility]; Protocol Last Admin: 06/19/18 11:00 Dose: 100 mls/hr Methylprednisolone (Solu-Medrol) 40 mg IVP Q8 [facility] Last Admin: 06/19/18 13:52 Dose: 40 mg Pantoprazole Sodium (Protonix Ec Tab) 40 mg PO DAILY [facility] Last Admin: 06/19/18 11:00 Dose: 40 mg Roflumilast (Daliresp) 500 mcg PO DAILY [facility] Last Admin: 06/19/18 11:00 Dose: 500 mcg Rosuvastatin Calcium (Crestor) 10 mg PO HS [facility] Last Admin: 06/18/18 22:00 Dose: 10 mg Tramadol HCl (Ultram) 50 mg PO TID PRN PRN Reason: Pain, moderate (4-7) Last Admin: 06/14/18 22:21 Dose: 50 mg Vitamin B Complex/Vitamin C (Berocca) 1 tab PO DAILY [facility] Last Admin: 06/19/18 11:00 Dose: 1 tab - Labs Labs: 06/19/18 10:58 06/19/18 10:58 PT 11.4 SECONDS (9.7-12.2) 06/10/18 12:06 INR 1.0 06/10/18 12:06 APTT 32 SECONDS (21-34) 06/10/18 12:06 - Constitutional Appears: Non-toxic, Chronically Ill - Head Exam Head Exam: NORMOCEPHALIC - Eye Exam Eye Exam: absent: Scleral icterus - ENT Exam ENT Exam: Mucous Membranes Dry - Neck Exam Neck Exam: absent: Lymphadenopathy - Respiratory Exam Respiratory Exam: Decreased Breath Sounds - Cardiovascular Exam Cardiovascular Exam: REGULAR RHYTHM - GI/Abdominal Exam GI & Abdominal Exam: Distended, Soft - Rectal Exam Rectal Exam: Deferred - Exam Exam: Scrotal Swelling - Extremities Exam Extremities Exam: Pedal Edema Assessment and Plan (1) Acute exacerbation of CHF (congestive heart failure) Status: Acute (2) Bilateral cellulitis of lower leg Status: Acute (3) CAD (coronary artery disease) Status: Acute (4) COPD (chronic obstructive pulmonary disease) Status: Chronic (5) Hypertension Status: Chronic - Assessment and Plan (Free Text) Assessment: cont iv rx as per Dr Morrell cardio eval in p[rogress prognosis guarded
--- NOTE | 2018-06-19 21:01 | CP.PCM.PN ---
Subjective - Date & Time of Evaluation Date of Evaluation: 06/19/18 Time of Evaluation: 09:00 - Subjective Subjective: clinically same Objective - Vital Signs/Intake and Output Vital Signs (last 24 hours): Temp Pulse Resp BP Pulse Ox 97.7 F 69 20 125/70 95 06/19/18 15:23 06/19/18 15:23 06/19/18 15:23 06/19/18 15:23 06/19/18 15:23 Intake and Output: 06/19/18 06/20/18 18:59 06:59 Intake Total 250 Output Total 1000 Balance -750 - Medications Medications: Current Medications Acetazolamide (Diamox 250 Mg Tab) 250 mg PO BID [facility] Last Admin: 06/19/18 19:14 Dose: 250 mg Albuterol/Ipratropium (Duoneb 3 Mg/0.5 Mg (3 Ml) Ud) 3 ml INH RQ6 [facility] Last Admin: 06/19/18 19:37 Dose: Not Given Alprazolam (Xanax) 0.5 mg PO HS [facility] Last Admin: 06/18/18 22:00 Dose: 0.5 mg Amlodipine Besylate (Norvasc) 5 mg PO DAILY [facility] Last Admin: 06/19/18 10:56 Dose: 5 mg Clopidogrel Bisulfate (Plavix) 75 mg PO DAILY [facility] Last Admin: 06/19/18 11:00 Dose: 75 mg Fluticasone/Vilanterol (Breo Ellipta 100-25 Mcg Inh) 1 puff INH RQ24 [facility] Furosemide (Lasix) 60 mg IVP DAILY [facility] Last Admin: 06/19/18 11:00 Dose: 60 mg Cefepime HCl (Maxipime Iv 1 Gm Premix) 1 gm in 50 mls @ 100 mls/hr IVPB Q12H [facility]; Protocol Last Admin: 06/19/18 11:00 Dose: 100 mls/hr Methylprednisolone (Solu-Medrol) 40 mg IVP Q8 [facility] Last Admin: 06/19/18 13:52 Dose: 40 mg Pantoprazole Sodium (Protonix Ec Tab) 40 mg PO DAILY [facility] Last Admin: 06/19/18 11:00 Dose: 40 mg Roflumilast (Daliresp) 500 mcg PO DAILY [facility] Last Admin: 06/19/18 11:00 Dose: 500 mcg Rosuvastatin Calcium (Crestor) 10 mg PO HS [facility] Last Admin: 06/18/18 22:00 Dose: 10 mg Tramadol HCl (Ultram) 50 mg PO TID PRN PRN Reason: Pain, moderate (4-7) Last Admin: 06/14/18 22:21 Dose: 50 mg Vitamin B Complex/Vitamin C (Berocca) 1 tab PO DAILY [facility] Last Admin: 06/19/18 11:00 Dose: 1 tab - Labs Labs: 06/19/18 10:58 06/19/18 10:58 PT 11.4 SECONDS (9.7-12.2) 06/10/18 12:06 INR 1.0 06/10/18 12:06 APTT 32 SECONDS (21-34) 06/10/18 12:06 - Constitutional Appears: Well - Head Exam Head Exam: ATRAUMATIC, NORMAL INSPECTION, NORMOCEPHALIC - Eye Exam Eye Exam: EOMI, Normal appearance, PERRL Pupil Exam: NORMAL ACCOMODATION, PERRL - ENT Exam ENT Exam: Mucous Membranes Moist, Normal Exam - Neck Exam Neck Exam: Full ROM, Normal Inspection. absent: Lymphadenopathy - Respiratory Exam Respiratory Exam: Decreased Breath Sounds - Cardiovascular Exam Cardiovascular Exam: REGULAR RHYTHM, +S1, +S2 - GI/Abdominal Exam GI & Abdominal Exam: Soft, Diminished Bowel Sounds - Rectal Exam Rectal Exam: Deferred
[2018-06-20] MEDS: Albuterol-Ipratrop 3 mg / 0.5 (3 ml) UD INH SCH ×4 (01:17→19:45)
[2018-06-20] MEDS: MethylPREDNISolone 40 mg Vial IVP SCH ×3 (05:22→22:12)
--- NOTE | 2018-06-20 06:12 | CP.PCM.PN ---
Subjective - Date & Time of Evaluation Date of Evaluation: 06/19/18 Time of Evaluation: 08:00 - Subjective Subjective: Podiatry Progress note for Dr. Morrell 83M patient seen and evaluated for LLE wound and bilateral LE edema. Patient OOB in recliner, resting comfortably, NAD. No acute events overnight. No new lower extremity complaints; dressings clean/dry/intact. Objective - Vital Signs/Intake and Output Vital Signs (last 24 hours): Temp Pulse Resp BP Pulse Ox 97.7 F 67 20 131/67 95 06/19/18 23:30 06/20/18 01:17 06/19/18 23:30 06/19/18 23:30 06/19/18 23:30 Intake and Output: 06/19/18 06/20/18 18:59 06:59 Intake Total 250 300 Output Total 1000 850 Balance -750 -550 - Medications Medications: Current Medications Acetazolamide (Diamox 250 Mg Tab) 250 mg PO BID [facility] Last Admin: 06/19/18 19:14 Dose: 250 mg Albuterol/Ipratropium (Duoneb 3 Mg/0.5 Mg (3 Ml) Ud) 3 ml INH RQ6 [facility] Last Admin: 06/20/18 01:17 Dose: Not Given Alprazolam (Xanax) 0.5 mg PO HS [facility] Last Admin: 06/19/18 22:03 Dose: 0.5 mg Amlodipine Besylate (Norvasc) 5 mg PO DAILY [facility] Last Admin: 06/19/18 10:56 Dose: 5 mg Clopidogrel Bisulfate (Plavix) 75 mg PO DAILY [facility] Last Admin: 06/19/18 11:00 Dose: 75 mg Fluticasone/Vilanterol (Breo Ellipta 100-25 Mcg Inh) 1 puff INH RQ24 [facility] Furosemide (Lasix) 60 mg IVP DAILY [facility] Last Admin: 06/19/18 11:00 Dose: 60 mg Cefepime HCl (Maxipime Iv 1 Gm Premix) 1 gm in 50 mls @ 100 mls/hr IVPB Q12H [facility]; Protocol Last Admin: 06/19/18 22:00 Dose: 100 mls/hr Methylprednisolone (Solu-Medrol) 40 mg IVP Q8 [facility] Last Admin: 06/20/18 05:22 Dose: 40 mg Pantoprazole Sodium (Protonix Ec Tab) 40 mg PO DAILY [facility] Last Admin: 06/19/18 11:00 Dose: 40 mg Roflumilast (Daliresp) 500 mcg PO DAILY [facility] Last Admin: 06/19/18 11:00 Dose: 500 mcg Rosuvastatin Calcium (Crestor) 10 mg PO HS [facility] Last Admin: 06/19/18 22:03 Dose: 10 mg Tramadol HCl (Ultram) 50 mg PO TID PRN PRN Reason: Pain, moderate (4-7) Last Admin: 06/14/18 22:21 Dose: 50 mg Vitamin B Complex/Vitamin C (Berocca) 1 tab PO DAILY [facility] Last Admin: 06/19/18 11:00 Dose: 1 tab - Labs Labs: 06/19/18 10:58 06/19/18 10:58 PT 11.4 SECONDS (9.7-12.2) 06/10/18 12:06 INR 1.0 06/10/18 12:06 APTT 32 SECONDS (21-34) 06/10/18 12:06 - Constitutional Appears: Non-toxic, No Acute Distress - Extremities Exam Additional comments: B/L LE focused exam: Dressings to bilateral LE clean/dry/intact with no strikethrough present VASC: DP/PT pulses non-palpable b/l. Cap refill <3 seconds to digits. +1 pitting edema noted b/l. Temperature gradient warm to warm with no increase in warmth to left lateral leg wound. NEURO: Gross sensation diminished. DERM: Venous stasis dermatitis present to legs circumferential b/l. Venous stasis wound noted to left lateral leg measuring approximately 8 x 6 cm with second wound more anterior measuring approximately 2 x 1 cm - both ulcers noted to have 100% granular base with serous drainage present; foul odor present. Weeping noted to areas of venous stasis dermatitis b/l. MSK: No pain on palpation to wound site. No pain upon calf squeeze b/l. - Neurological Exam Neurological Exam: Alert, Awake, Oriented x3 - Psychiatric Exam Psychiatric exam: Normal Affect, Normal Mood Assessment and Plan - Assessment and Plan (Free Text) Assessment: 83 y/o M patient with chronic venous stasis ulcerations LLE and b/l LE edema Plan: Patient seen and evaluated with attending, Dr. Morrell Afebrile Continue local wound care - xeroform, DSD LLE; MERLENE b/l Continue abx - Cefepime, Vancomycin Activity: WBAT Podiatry will continue to follow
[2018-06-20 08:31] LABS: ALB/GLOB RATIO 1.4 (1.0-2.1); ALBUMIN 3.8 g/dL (3.5-5.0); CALCIUM 8.8 mg/dl (8.6-10.4)
[2018-06-20] MEDS: Vitamin B Complex/Vitamin C Tab PO SCH (09:55)
[2018-06-20] MEDS: Pantoprazole 40 mg EC Tab PO SCH (09:55)
[2018-06-20] MEDS: Cefepime IV 1 gm in Dextrose 1 GM/50 ML BAG IVPB SCH ×2 (10:45→22:11)
--- NOTE | 2018-06-20 10:47 | CP.PCM.PN ---
Subjective - Date & Time of Evaluation Date of Evaluation: 06/20/18 Time of Evaluation: 10:47 - Subjective Subjective: Overall feeling better Conversing well On O2 No CP or fever/chills LE dressing done by podiatry Objective - Vital Signs/Intake and Output Vital Signs (last 24 hours): Temp Pulse Resp BP Pulse Ox 98.1 F 63 20 117/53 L 95 06/20/18 07:00 06/20/18 07:56 06/20/18 07:00 06/20/18 09:56 06/20/18 07:00 Intake and Output: 06/20/18 06/20/18 06:59 18:59 Intake Total 300 Output Total 850 Balance -550 - Medications Medications: Current Medications Acetazolamide (Diamox 250 Mg Tab) 250 mg PO BID [facility] Last Admin: 06/20/18 10:08 Dose: 250 mg Albuterol/Ipratropium (Duoneb 3 Mg/0.5 Mg (3 Ml) Ud) 3 ml INH RQ6 [facility] Last Admin: 06/20/18 08:00 Dose: 3 ml Alprazolam (Xanax) 0.5 mg PO HS [facility] Last Admin: 06/19/18 22:03 Dose: 0.5 mg Amlodipine Besylate (Norvasc) 5 mg PO DAILY [facility] Last Admin: 06/20/18 09:55 Dose: 5 mg Clopidogrel Bisulfate (Plavix) 75 mg PO DAILY [facility] Last Admin: 06/20/18 09:55 Dose: 75 mg Fluticasone/Vilanterol (Breo Ellipta 100-25 Mcg Inh) 1 puff INH RQ24 [facility] Furosemide (Lasix) 60 mg IVP DAILY [facility] Last Admin: 06/20/18 09:56 Dose: 60 mg Cefepime HCl (Maxipime Iv 1 Gm Premix) 1 gm in 50 mls @ 100 mls/hr IVPB Q12H [facility]; Protocol Last Admin: 06/20/18 10:45 Dose: 100 mls/hr Methylprednisolone (Solu-Medrol) 40 mg IVP Q8 [facility] Last Admin: 06/20/18 05:22 Dose: 40 mg Pantoprazole Sodium (Protonix Ec Tab) 40 mg PO DAILY [facility] Last Admin: 06/20/18 09:55 Dose: 40 mg Roflumilast (Daliresp) 500 mcg PO DAILY [facility] Last Admin: 06/20/18 10:08 Dose: 500 mcg Rosuvastatin Calcium (Crestor) 10 mg PO HS [facility] Last Admin: 06/19/18 22:03 Dose: 10 mg Tramadol HCl (Ultram) 50 mg PO TID PRN PRN Reason: Pain, moderate (4-7) Last Admin: 06/14/18 22:21 Dose: 50 mg Vitamin B Complex/Vitamin C (Berocca) 1 tab PO DAILY [facility] Last Admin: 06/20/18 09:55 Dose: 1 tab - Labs Labs: 06/19/18 10:58 06/20/18 07:17 PT 11.4 SECONDS (9.7-12.2) 06/10/18 12:06 INR 1.0 06/10/18 12:06 APTT 32 SECONDS (21-34) 06/10/18 12:06 - Constitutional Appears: No Acute Distress, Chronically Ill - Head Exam Head Exam: ATRAUMATIC, NORMAL INSPECTION, NORMOCEPHALIC - Eye Exam Eye Exam: EOMI, Normal appearance. absent: Scleral icterus - ENT Exam ENT Exam: Mucous Membranes Moist, Normal Exam, Normal Oropharynx - Neck Exam Neck Exam: Full ROM, Normal Inspection. absent: Tenderness - Respiratory Exam Respiratory Exam: Decreased Breath Sounds, NORMAL BREATHING PATTERN. absent: Rales - Cardiovascular Exam Cardiovascular Exam: REGULAR RHYTHM, +S1, +S2. absent: +S4, Murmur - GI/Abdominal Exam GI & Abdominal Exam: Soft, Normal Bowel Sounds. absent: Tenderness - Extremities Exam Extremities Exam: Pedal Edema. 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 Sxs are c/w acute on chronic lung disease and ABE/Cor Pulmonale Chronic diuresis on lasix and diamox Continue CPAP support for ABE Continue agressive wound care, CPAP titration, DVT prophylaxis CAD: stable: suggest DAPT and statin, consider addition of imdur and ranexa PPM: 100% V. pacing BP: controlled on amlodipine PT suggested
--- NOTE | 2018-06-20 17:43 | CP.PCM.PN ---
Subjective - Date & Time of Evaluation Date of Evaluation: 06/20/18 Time of Evaluation: 08:30 - Subjective Subjective: clinically same Objective - Vital Signs/Intake and Output Vital Signs (last 24 hours): Temp Pulse Resp BP Pulse Ox 98.1 F 63 20 117/53 L 95 06/20/18 07:00 06/20/18 07:56 06/20/18 07:00 06/20/18 09:56 06/20/18 07:00 Intake and Output: 06/20/18 06/20/18 06:59 18:59 Intake Total 300 520 Output Total 850 700 Balance -550 -180 - Medications Medications: Current Medications Acetazolamide (Diamox 250 Mg Tab) 250 mg PO BID [facility] Last Admin: 06/20/18 10:08 Dose: 250 mg Albuterol/Ipratropium (Duoneb 3 Mg/0.5 Mg (3 Ml) Ud) 3 ml INH RQ6 [facility] Last Admin: 06/20/18 13:40 Dose: 3 ml Alprazolam (Xanax) 0.5 mg PO HS [facility] Last Admin: 06/19/18 22:03 Dose: 0.5 mg Amlodipine Besylate (Norvasc) 5 mg PO DAILY [facility] Last Admin: 06/20/18 09:55 Dose: 5 mg Clopidogrel Bisulfate (Plavix) 75 mg PO DAILY [facility] Last Admin: 06/20/18 09:55 Dose: 75 mg Fluticasone/Vilanterol (Breo Ellipta 100-25 Mcg Inh) 1 puff INH RQ24 [facility] Furosemide (Lasix) 60 mg IVP DAILY [facility] Last Admin: 06/20/18 09:56 Dose: 60 mg Cefepime HCl (Maxipime Iv 1 Gm Premix) 1 gm in 50 mls @ 100 mls/hr IVPB Q12H [facility]; Protocol Last Admin: 06/20/18 10:45 Dose: 100 mls/hr Methylprednisolone (Solu-Medrol) 40 mg IVP Q8 [facility] Last Admin: 06/20/18 14:28 Dose: 40 mg Pantoprazole Sodium (Protonix Ec Tab) 40 mg PO DAILY [facility] Last Admin: 06/20/18 09:55 Dose: 40 mg Roflumilast (Daliresp) 500 mcg PO DAILY [facility] Last Admin: 06/20/18 10:08 Dose: 500 mcg Rosuvastatin Calcium (Crestor) 10 mg PO HS [facility] Last Admin: 06/19/18 22:03 Dose: 10 mg Tramadol HCl (Ultram) 50 mg PO TID PRN PRN Reason: Pain, moderate (4-7) Last Admin: 06/14/18 22:21 Dose: 50 mg Vitamin B Complex/Vitamin C (Berocca) 1 tab PO DAILY [facility] Last Admin: 06/20/18 09:55 Dose: 1 tab - Labs Labs: 06/19/18 10:58 06/20/18 07:17 PT 11.4 SECONDS (9.7-12.2) 06/10/18 12:06 INR 1.0 06/10/18 12:06 APTT 32 SECONDS (21-34) 06/10/18 12:06 - Constitutional Appears: Well - Head Exam Head Exam: ATRAUMATIC, NORMAL INSPECTION, NORMOCEPHALIC - Eye Exam Eye Exam: EOMI, Normal appearance, PERRL Pupil Exam: NORMAL ACCOMODATION, PERRL - ENT Exam ENT Exam: Mucous Membranes Moist, Normal Exam - Neck Exam Neck Exam: Full ROM, Normal Inspection. absent: Lymphadenopathy - Respiratory Exam Respiratory Exam: Decreased Breath Sounds - Cardiovascular Exam Cardiovascular Exam: REGULAR RHYTHM, +S1, +S2 - GI/Abdominal Exam GI & Abdominal Exam: Soft, Diminished Bowel Sounds - Rectal Exam Rectal Exam: Deferred
--- NOTE | 2018-06-20 18:37 | CP.PCM.PN ---
Subjective - Date & Time of Evaluation Date of Evaluation: 06/20/18 Time of Evaluation: 09:00 - Subjective Subjective: CO2 elevated afeb nad Objective - Vital Signs/Intake and Output Vital Signs (last 24 hours): Temp Pulse Resp BP Pulse Ox 98.1 F 63 20 117/53 L 95 06/20/18 07:00 06/20/18 07:56 06/20/18 07:00 06/20/18 09:56 06/20/18 07:00 Intake and Output: 06/20/18 06/20/18 06:59 18:59 Intake Total 300 520 Output Total 850 700 Balance -550 -180 - Medications Medications: Current Medications Acetazolamide (Diamox 250 Mg Tab) 250 mg PO BID [facility] Last Admin: 06/20/18 10:08 Dose: 250 mg Albuterol/Ipratropium (Duoneb 3 Mg/0.5 Mg (3 Ml) Ud) 3 ml INH RQ6 [facility] Last Admin: 06/20/18 13:40 Dose: 3 ml Alprazolam (Xanax) 0.5 mg PO HS [facility] Last Admin: 06/19/18 22:03 Dose: 0.5 mg Amlodipine Besylate (Norvasc) 5 mg PO DAILY [facility] Last Admin: 06/20/18 09:55 Dose: 5 mg Clopidogrel Bisulfate (Plavix) 75 mg PO DAILY [facility] Last Admin: 06/20/18 09:55 Dose: 75 mg Fluticasone/Vilanterol (Breo Ellipta 100-25 Mcg Inh) 1 puff INH RQ24 [facility] Furosemide (Lasix) 60 mg IVP DAILY [facility] Last Admin: 06/20/18 09:56 Dose: 60 mg Cefepime HCl (Maxipime Iv 1 Gm Premix) 1 gm in 50 mls @ 100 mls/hr IVPB Q12H [facility]; Protocol Last Admin: 06/20/18 10:45 Dose: 100 mls/hr Methylprednisolone (Solu-Medrol) 40 mg IVP Q8 [facility] Last Admin: 06/20/18 14:28 Dose: 40 mg Pantoprazole Sodium (Protonix Ec Tab) 40 mg PO DAILY [facility] Last Admin: 06/20/18 09:55 Dose: 40 mg Roflumilast (Daliresp) 500 mcg PO DAILY [facility] Last Admin: 06/20/18 10:08 Dose: 500 mcg Rosuvastatin Calcium (Crestor) 10 mg PO HS [facility] Last Admin: 06/19/18 22:03 Dose: 10 mg Tramadol HCl (Ultram) 50 mg PO TID PRN PRN Reason: Pain, moderate (4-7) Last Admin: 06/14/18 22:21 Dose: 50 mg Vitamin B Complex/Vitamin C (Berocca) 1 tab PO DAILY [facility] Last Admin: 06/20/18 09:55 Dose: 1 tab - Labs Labs: 06/19/18 10:58 06/20/18 07:17 PT 11.4 SECONDS (9.7-12.2) 06/10/18 12:06 INR 1.0 06/10/18 12:06 APTT 32 SECONDS (21-34) 06/10/18 12:06 - Constitutional Appears: Non-toxic, Chronically Ill - Head Exam Head Exam: NORMOCEPHALIC - Eye Exam Eye Exam: absent: Scleral icterus - ENT Exam ENT Exam: Mucous Membranes Dry - Neck Exam Neck Exam: absent: Lymphadenopathy - Respiratory Exam Respiratory Exam: Decreased Breath Sounds, Rhonchi - Cardiovascular Exam Cardiovascular Exam: REGULAR RHYTHM, +S1, +S2 - GI/Abdominal Exam GI & Abdominal Exam: Distended, Soft - Rectal Exam Rectal Exam: Deferred - Exam Exam: NORMAL INSPECTION - Back Exam Back Exam: absent: CVA tenderness (L), CVA tenderness (R) - Neurological Exam Neurological Exam: Alert, Awake, Oriented x3 Assessment and Plan (1) Acute exacerbation of CHF (congestive heart failure) Status: Acute (2) Bilateral cellulitis of lower leg Status: Acute (3) CAD (coronary artery disease) Status: Acute (4) COPD (chronic obstructive pulmonary disease) Status: Chronic (5) Hypertension Status: Chronic
--- NOTE | 2018-06-20 20:07 | CP.PCM.PN ---
Subjective - Date & Time of Evaluation Date of Evaluation: 06/20/18 Time of Evaluation: 20:07 - Subjective Subjective: Pt is seen and examined No events overnight Objective - Vital Signs/Intake and Output Vital Signs (last 24 hours): Temp Pulse Resp BP Pulse Ox 97.7 F 82 18 119/55 L 93 L 06/20/18 15:18 06/20/18 15:18 06/20/18 15:18 06/20/18 15:18 06/20/18 15:18 Intake and Output: 06/20/18 06/21/18 18:59 06:59 Intake Total 520 Output Total 700 Balance -180 - Medications Medications: Current Medications Acetazolamide (Diamox 250 Mg Tab) 250 mg PO BID [facility] Last Admin: 06/20/18 19:05 Dose: 250 mg Albuterol/Ipratropium (Duoneb 3 Mg/0.5 Mg (3 Ml) Ud) 3 ml INH RQ6 [facility] Last Admin: 06/20/18 19:45 Dose: 3 ml Alprazolam (Xanax) 0.5 mg PO HS [facility] Last Admin: 06/19/18 22:03 Dose: 0.5 mg Amlodipine Besylate (Norvasc) 5 mg PO DAILY [facility] Last Admin: 06/20/18 09:55 Dose: 5 mg Clopidogrel Bisulfate (Plavix) 75 mg PO DAILY [facility] Last Admin: 06/20/18 09:55 Dose: 75 mg Fluticasone/Vilanterol (Breo Ellipta 100-25 Mcg Inh) 1 puff INH RQ24 [facility] Furosemide (Lasix) 60 mg IVP DAILY [facility] Last Admin: 06/20/18 09:56 Dose: 60 mg Cefepime HCl (Maxipime Iv 1 Gm Premix) 1 gm in 50 mls @ 100 mls/hr IVPB Q12H [facility]; Protocol Last Admin: 06/20/18 10:45 Dose: 100 mls/hr Methylprednisolone (Solu-Medrol) 40 mg IVP Q8 [facility] Last Admin: 06/20/18 14:28 Dose: 40 mg Pantoprazole Sodium (Protonix Ec Tab) 40 mg PO DAILY [facility] Last Admin: 06/20/18 09:55 Dose: 40 mg Roflumilast (Daliresp) 500 mcg PO DAILY [facility] Last Admin: 06/20/18 10:08 Dose: 500 mcg Rosuvastatin Calcium (Crestor) 10 mg PO HS [facility] Last Admin: 06/19/18 22:03 Dose: 10 mg Tramadol HCl (Ultram) 50 mg PO TID PRN PRN Reason: Pain, moderate (4-7) Last Admin: 06/14/18 22:21 Dose: 50 mg Vitamin B Complex/Vitamin C (Berocca) 1 tab PO DAILY [facility] Last Admin: 06/20/18 09:55 Dose: 1 tab - Labs Labs: 06/19/18 10:58 06/20/18 07:17 PT 11.4 SECONDS (9.7-12.2) 06/10/18 12:06 INR 1.0 06/10/18 12:06 APTT 32 SECONDS (21-34) 06/10/18 12:06 - Head Exam Head Exam: NORMAL INSPECTION - Eye Exam Eye Exam: Normal appearance - ENT Exam ENT Exam: Mucous Membranes Moist - Respiratory Exam Respiratory Exam: Decreased Breath Sounds - Cardiovascular Exam Cardiovascular Exam: REGULAR RHYTHM - GI/Abdominal Exam GI & Abdominal Exam: Soft, Normal Bowel Sounds - Extremities Exam Extremities Exam: Pedal Edema Assessment and Plan (1) Acute exacerbation of CHF (congestive heart failure) Status: Acute (2) Dyspnea Status: Acute (3) Respiratory failure with hypoxia and hypercapnia Status: Acute (4) COPD (chronic obstructive pulmonary disease) Status: Chronic - Assessment and Plan (Free Text) Plan: Bronchodilators O2 supplementation Continue Abx BiPAP as needed Steroids Breo Ellipta Diamox DVT/GI prophalaxis
[2018-06-21 01:26] VITALS: RESP 20
[2018-06-21] MEDS: Albuterol-Ipratrop 3 mg / 0.5 (3 ml) UD INH SCH ×4 (01:35→19:35)
[2018-06-21] MEDS: MethylPREDNISolone 40 mg Vial IVP SCH ×3 (05:53→21:23)
--- NOTE | 2018-06-21 10:17 | EEG ---
DATE: 06/18/2018 This is a 16-channel electroencephalogram of awake and drowsy adult. During the study, photic stimulation was performed. Hyperventilation was not performed. The resting electroencephalogram consists of high amplitude 9 to 11 Hz alpha activities seen from the beginning, which followed with diffuse polyspike and wave activities noted in bilateral cortical leads consistent with epileptiform discharges. This activity is intermittently noted with movement artifact noted. There is no documented evidence of physical seizure activities as per the records. The photic stimulation did not evoke driving response noted at 2 to 20 Hz. IMPRESSION: This is an abnormal electroencephalogram because of generalized epileptiform focus consistent with seizures. Please correlate the findings with the neurological and radiological studies. Seven Novoa MD
[2018-06-21] MEDS: Vitamin B Complex/Vitamin C Tab PO SCH (10:26)
[2018-06-21] MEDS: Pantoprazole 40 mg EC Tab PO SCH (10:26)
[2018-06-21] MEDS: Cefepime IV 1 gm in Dextrose 1 GM/50 ML BAG IVPB SCH ×2 (10:26→21:23)
--- NOTE | 2018-06-21 12:22 | CP.PCM.PN ---
Subjective - Date & Time of Evaluation Date of Evaluation: 06/21/18 Time of Evaluation: 12:22 - Subjective Subjective: Podiatry Progress Note - Dr. Morrell 83M patient seen and evaluated for LLE wound and bilateral LE edema. NAD. No acute events overnight. No new lower extremity complaints; dressings clean/dry/intact. SOB improving. Denies n/v/f/d/c/rodríguez/cp. Objective - Vital Signs/Intake and Output Vital Signs (last 24 hours): Temp Pulse Resp BP Pulse Ox 97.7 F 75 20 122/73 96 06/21/18 07:00 06/21/18 07:00 06/21/18 07:00 06/21/18 10:33 06/21/18 07:00 Intake and Output: 06/21/18 06/21/18 06:59 18:59 Output Total 550 Balance -550 - Medications Medications: Current Medications Acetazolamide (Diamox 250 Mg Tab) 250 mg PO BID [facility] Last Admin: 06/21/18 10:26 Dose: 250 mg Albuterol/Ipratropium (Duoneb 3 Mg/0.5 Mg (3 Ml) Ud) 3 ml INH RQ6 [facility] Last Admin: 06/21/18 08:41 Dose: 3 ml Alprazolam (Xanax) 0.5 mg PO HS [facility] Last Admin: 06/20/18 22:12 Dose: 0.5 mg Amlodipine Besylate (Norvasc) 5 mg PO DAILY [facility] Last Admin: 06/21/18 10:26 Dose: 5 mg Clopidogrel Bisulfate (Plavix) 75 mg PO DAILY [facility] Last Admin: 06/21/18 10:26 Dose: 75 mg Fluticasone/Vilanterol (Breo Ellipta 100-25 Mcg Inh) 1 puff INH RQ24 [facility] Furosemide (Lasix) 60 mg IVP DAILY [facility] Last Admin: 06/21/18 10:33 Dose: 60 mg Cefepime HCl (Maxipime Iv 1 Gm Premix) 1 gm in 50 mls @ 100 mls/hr IVPB Q12H [facility]; Protocol Last Admin: 06/21/18 10:26 Dose: 100 mls/hr Methylprednisolone (Solu-Medrol) 40 mg IVP Q8 [facility] Last Admin: 06/21/18 05:53 Dose: 40 mg Pantoprazole Sodium (Protonix Ec Tab) 40 mg PO DAILY [facility] Last Admin: 06/21/18 10:26 Dose: 40 mg Roflumilast (Daliresp) 500 mcg PO DAILY [facility] Last Admin: 06/21/18 10:26 Dose: 500 mcg Rosuvastatin Calcium (Crestor) 10 mg PO HS [facility] Last Admin: 06/20/18 22:11 Dose: 10 mg Tramadol HCl (Ultram) 50 mg PO TID PRN PRN Reason: Pain, moderate (4-7) Last Admin: 06/14/18 22:21 Dose: 50 mg Vitamin B Complex/Vitamin C (Berocca) 1 tab PO DAILY [facility] Last Admin: 06/21/18 10:26 Dose: 1 tab - Labs Labs: 06/19/18 10:58 06/20/18 07:17 PT 11.4 SECONDS (9.7-12.2) 06/10/18 12:06 INR 1.0 06/10/18 12:06 APTT 32 SECONDS (21-34) 06/10/18 12:06 - Constitutional Appears: No Acute Distress - Extremities Exam Additional comments: B/L LE focused exam: Dressings to bilateral LE clean/dry/intact with no strikethrough present VASC: DP/PT pulses non-palpable b/l. Cap refill <3 seconds to digits. +1 pitting edema noted b/l. Temperature gradient warm to warm with no increase in warmth to left lateral leg wound. NEURO: Gross sensation diminished. DERM: Venous stasis dermatitis present to legs circumferential b/l. Venous stasis wound noted to left lateral leg measuring approximately 8 x 6 cm with second wound more anterior measuring approximately 2 x 1 cm - both ulcers noted to have 100% granular base with serous drainage present; foul odor present. Weeping noted to areas of venous stasis dermatitis b/l. MSK: No pain on palpation to wound site. No pain upon calf squeeze b/l. - Neurological Exam Neurological Exam: Alert, Awake, Oriented x3 - Psychiatric Exam Psychiatric exam: Normal Affect, Normal Mood Assessment and Plan - Assessment and Plan (Free Text) Assessment: 83 y/o M patient with chronic venous stasis ulcerations LLE and b/l LE edema Plan: Patient seen and evaluated with attending, Dr. Morrell Afebrile Continue local wound care - xeroform, DSD LLE; MERLENE b/l Continue abx - Cefepime Activity: WBAT Continue PT/OT Podiatry will continue to follow
[2018-06-21 14:10] LABS: ABG ALLEN TEST POS; ARTERIAL BLOOD GAS HCO3 33.4 mmol/L (21-28); ARTERIAL BLOOD GAS HEMOGLOBIN 9.7 g/dL (11.7-17.4); ARTERIAL BLOOD GAS O2 SAT 99.3 % (95-98); ARTERIAL BLOOD GAS PCO2 64 mm/Hg (35-45); ARTERIAL BLOOD GAS PH 7.38 (7.35-7.45); ARTERIAL BLOOD GAS PO2 88 mm/Hg (80-100); ARTERIAL BLOOD GAS TCO2 39.9 mmol/L (22-28)
--- NOTE | 2018-06-21 14:55 | CP.PCM.PN ---
Subjective - Date & Time of Evaluation Date of Evaluation: 06/21/18 Time of Evaluation: 14:52 - Subjective Subjective: Patient seen and examined No events overnight Awake and alert In no respiratory distress. Objective - Vital Signs/Intake and Output Vital Signs (last 24 hours): Temp Pulse Resp BP Pulse Ox 97.7 F 75 20 122/73 96 06/21/18 07:00 06/21/18 07:00 06/21/18 07:00 06/21/18 10:33 06/21/18 07:00 Intake and Output: 06/21/18 06/21/18 06:59 18:59 Output Total 550 Balance -550 - Medications Medications: Current Medications Acetazolamide (Diamox 250 Mg Tab) 250 mg PO BID [facility] Last Admin: 06/21/18 10:26 Dose: 250 mg Albuterol/Ipratropium (Duoneb 3 Mg/0.5 Mg (3 Ml) Ud) 3 ml INH RQ6 [facility] Last Admin: 06/21/18 13:06 Dose: 3 ml Alprazolam (Xanax) 0.5 mg PO HS [facility] Last Admin: 06/20/18 22:12 Dose: 0.5 mg Amlodipine Besylate (Norvasc) 5 mg PO DAILY [facility] Last Admin: 06/21/18 10:26 Dose: 5 mg Clopidogrel Bisulfate (Plavix) 75 mg PO DAILY [facility] Last Admin: 06/21/18 10:26 Dose: 75 mg Fluticasone/Vilanterol (Breo Ellipta 100-25 Mcg Inh) 1 puff INH RQ24 [facility] Furosemide (Lasix) 60 mg IVP DAILY [facility] Last Admin: 06/21/18 10:33 Dose: 60 mg Cefepime HCl (Maxipime Iv 1 Gm Premix) 1 gm in 50 mls @ 100 mls/hr IVPB Q12H [facility]; Protocol Last Admin: 06/21/18 10:26 Dose: 100 mls/hr Methylprednisolone (Solu-Medrol) 40 mg IVP Q8 [facility] Last Admin: 06/21/18 14:09 Dose: 40 mg Pantoprazole Sodium (Protonix Ec Tab) 40 mg PO DAILY [facility] Last Admin: 06/21/18 10:26 Dose: 40 mg Roflumilast (Daliresp) 500 mcg PO DAILY [facility] Last Admin: 06/21/18 10:26 Dose: 500 mcg Rosuvastatin Calcium (Crestor) 10 mg PO HS [facility] Last Admin: 06/20/18 22:11 Dose: 10 mg Tramadol HCl (Ultram) 50 mg PO TID PRN PRN Reason: Pain, moderate (4-7) Last Admin: 06/14/18 22:21 Dose: 50 mg Vitamin B Complex/Vitamin C (Berocca) 1 tab PO DAILY [facility] Last Admin: 06/21/18 10:26 Dose: 1 tab - Labs Labs: 06/19/18 10:58 06/20/18 07:17 PT 11.4 SECONDS (9.7-12.2) 06/10/18 12:06 INR 1.0 06/10/18 12:06 APTT 32 SECONDS (21-34) 06/10/18 12:06 - Head Exam Head Exam: NORMAL INSPECTION - Eye Exam Eye Exam: Normal appearance - ENT Exam ENT Exam: Mucous Membranes Moist - Respiratory Exam Respiratory Exam: Clear to Ausculation Bilateral - Cardiovascular Exam Cardiovascular Exam: REGULAR RHYTHM, +S1, +S2 - GI/Abdominal Exam GI & Abdominal Exam: Soft, Normal Bowel Sounds - Neurological Exam Neurological Exam: Alert, Awake - Psychiatric Exam Psychiatric exam: Normal Affect, Normal Mood Assessment and Plan (1) Acute exacerbation of CHF (congestive heart failure) Status: Acute (2) Dyspnea Status: Acute (3) Respiratory failure with hypoxia and hypercapnia Status: Acute (4) COPD (chronic obstructive pulmonary disease) Status: Chronic - Assessment and Plan (Free Text) Plan: Continue current treatment D/C Diamox Continue to follow bicarb and serial ABGs BiPAP as needed Bronchodilators DVT/GI prophylaxis
--- NOTE | 2018-06-21 18:13 | CP.PCM.PN ---
Subjective - Date & Time of Evaluation Date of Evaluation: 06/21/18 Time of Evaluation: 08:30 - Subjective Subjective: clinically same Objective - Vital Signs/Intake and Output Vital Signs (last 24 hours): Temp Pulse Resp BP Pulse Ox 97.9 F 72 20 120/64 95 06/21/18 15:00 06/21/18 15:00 06/21/18 15:00 06/21/18 15:00 06/21/18 15:00 Intake and Output: 06/21/18 06/21/18 06:59 18:59 Output Total 550 Balance -550 - Medications Medications: Current Medications Albuterol/Ipratropium (Duoneb 3 Mg/0.5 Mg (3 Ml) Ud) 3 ml INH RQ6 [facility] Last Admin: 06/21/18 13:06 Dose: 3 ml Alprazolam (Xanax) 0.5 mg PO HS [facility] Last Admin: 06/20/18 22:12 Dose: 0.5 mg Amlodipine Besylate (Norvasc) 5 mg PO DAILY [facility] Last Admin: 06/21/18 10:26 Dose: 5 mg Clopidogrel Bisulfate (Plavix) 75 mg PO DAILY [facility] Last Admin: 06/21/18 10:26 Dose: 75 mg Fluticasone/Vilanterol (Breo Ellipta 100-25 Mcg Inh) 1 puff INH RQ24 [facility] Furosemide (Lasix) 60 mg IVP DAILY [facility] Last Admin: 06/21/18 10:33 Dose: 60 mg Cefepime HCl (Maxipime Iv 1 Gm Premix) 1 gm in 50 mls @ 100 mls/hr IVPB Q12H [facility]; Protocol Last Admin: 06/21/18 10:26 Dose: 100 mls/hr Methylprednisolone (Solu-Medrol) 40 mg IVP Q8 [facility] Last Admin: 06/21/18 14:09 Dose: 40 mg Pantoprazole Sodium (Protonix Ec Tab) 40 mg PO DAILY [facility] Last Admin: 06/21/18 10:26 Dose: 40 mg Roflumilast (Daliresp) 500 mcg PO DAILY [facility] Last Admin: 06/21/18 10:26 Dose: 500 mcg Rosuvastatin Calcium (Crestor) 10 mg PO HS [facility] Last Admin: 06/20/18 22:11 Dose: 10 mg Tramadol HCl (Ultram) 50 mg PO TID PRN PRN Reason: Pain, moderate (4-7) Last Admin: 06/14/18 22:21 Dose: 50 mg Vitamin B Complex/Vitamin C (Berocca) 1 tab PO DAILY [facility] Last Admin: 06/21/18 10:26 Dose: 1 tab - Labs Labs: 06/19/18 10:58 06/20/18 07:17 PT 11.4 SECONDS (9.7-12.2) 06/10/18 12:06 INR 1.0 06/10/18 12:06 APTT 32 SECONDS (21-34) 06/10/18 12:06
--- NOTE | 2018-06-21 18:14 | CP.PCM.PN ---
Subjective - Date & Time of Evaluation Date of Evaluation: 06/21/18 Time of Evaluation: 10:00 - Subjective Subjective: less sob afeb nad Objective - Vital Signs/Intake and Output Vital Signs (last 24 hours): Temp Pulse Resp BP Pulse Ox 97.9 F 72 20 120/64 95 06/21/18 15:00 06/21/18 15:00 06/21/18 15:00 06/21/18 15:00 06/21/18 15:00 Intake and Output: 06/21/18 06/21/18 06:59 18:59 Output Total 550 Balance -550 - Medications Medications: Current Medications Albuterol/Ipratropium (Duoneb 3 Mg/0.5 Mg (3 Ml) Ud) 3 ml INH RQ6 [facility] Last Admin: 06/21/18 13:06 Dose: 3 ml Alprazolam (Xanax) 0.5 mg PO HS [facility] Last Admin: 06/20/18 22:12 Dose: 0.5 mg Amlodipine Besylate (Norvasc) 5 mg PO DAILY [facility] Last Admin: 06/21/18 10:26 Dose: 5 mg Clopidogrel Bisulfate (Plavix) 75 mg PO DAILY [facility] Last Admin: 06/21/18 10:26 Dose: 75 mg Fluticasone/Vilanterol (Breo Ellipta 100-25 Mcg Inh) 1 puff INH RQ24 [facility] Furosemide (Lasix) 60 mg IVP DAILY [facility] Last Admin: 06/21/18 10:33 Dose: 60 mg Cefepime HCl (Maxipime Iv 1 Gm Premix) 1 gm in 50 mls @ 100 mls/hr IVPB Q12H [facility]; Protocol Last Admin: 06/21/18 10:26 Dose: 100 mls/hr Methylprednisolone (Solu-Medrol) 40 mg IVP Q8 [facility] Last Admin: 06/21/18 14:09 Dose: 40 mg Pantoprazole Sodium (Protonix Ec Tab) 40 mg PO DAILY [facility] Last Admin: 06/21/18 10:26 Dose: 40 mg Roflumilast (Daliresp) 500 mcg PO DAILY [facility] Last Admin: 06/21/18 10:26 Dose: 500 mcg Rosuvastatin Calcium (Crestor) 10 mg PO HS [facility] Last Admin: 06/20/18 22:11 Dose: 10 mg Tramadol HCl (Ultram) 50 mg PO TID PRN PRN Reason: Pain, moderate (4-7) Last Admin: 06/14/18 22:21 Dose: 50 mg Vitamin B Complex/Vitamin C (Berocca) 1 tab PO DAILY [facility] Last Admin: 06/21/18 10:26 Dose: 1 tab - Labs Labs: 06/19/18 10:58 06/20/18 07:17 PT 11.4 SECONDS (9.7-12.2) 06/10/18 12:06 INR 1.0 06/10/18 12:06 APTT 32 SECONDS (21-34) 06/10/18 12:06 - Constitutional Appears: Non-toxic, Chronically Ill - Head Exam Head Exam: NORMOCEPHALIC - Eye Exam Eye Exam: absent: Scleral icterus - ENT Exam ENT Exam: Mucous Membranes Dry - Neck Exam Neck Exam: absent: Lymphadenopathy - Respiratory Exam Respiratory Exam: Decreased Breath Sounds - Cardiovascular Exam Cardiovascular Exam: REGULAR RHYTHM - GI/Abdominal Exam GI & Abdominal Exam: Distended, Soft - Rectal Exam Rectal Exam: Deferred - Exam Exam: NORMAL INSPECTION - Extremities Exam Extremities Exam: absent: Pedal Edema - Back Exam Back Exam: absent: CVA tenderness (L), CVA tenderness (R) - Neurological Exam Neurological Exam: Alert, Awake, Oriented x3 Assessment and Plan (1) Acute exacerbation of CHF (congestive heart failure) Status: Acute (2) Bilateral cellulitis of lower leg Status: Acute (3) CAD (coronary artery disease) Status: Acute (4) COPD (chronic obstructive pulmonary disease) Status: Chronic (5) Hypertension Status: Chronic - Assessment and Plan (Free Text) Assessment: cont iv antibiotics as ordered
--- NOTE | 2018-06-21 23:26 | PQF ---
PROVIDER RESPONSE TEXT: Pna an don iv antibioitv REVIEWER QUERY TEXT: Clarification of Clinical Diagnostic Findings Please clarify documentation or clinical relevance for the clinical / diagnostic findings or whether those are insignificant or unable to be further specified. Pneumonia in the setting of Acute Exac of CHF CXR showing Infiltrate treated with Rocephin IV and Yvonne thromycin IV. -Other Expalanation. -Unable to Determine. The patient's Clinical Indicators include: Clinical Findings: SOB, Leg swelling. CXR showing: Patchy increased markings at the lung bases Right lower lobe medial basilar dense infiltrate . Treatment: Rocephin IV, Azithromycin IV, Risk Factor: Immunocompromised Query created by: Patricia Acharya on 06/11/2018 4:45 PM Electronically signed by: Chiquita CORREA 06/21/2018 11:23 PM
--- NOTE | 2018-06-21 23:26 | PQF ---
PROVIDER RESPONSE TEXT: Acute cornic diatolic chf with elevated rprobnp and elvated hco3 level needs lasix ivp dialy REVIEWER QUERY TEXT: Clarification of Clinical Diagnostic Findings Please clarify documentation or clinical relevance for the clinical / diagnostic findings or whether those are insignificant or unable to be further specified. Acute on chronic Diastolic CHF in the setting of SOB and Leg swelling with elevated proBNP treated wi th Lasix IVP daily. -Other Explanation. -Unable to Determine The patient's Clinical Indicators include: Clinical Findings: Worsening SOB, LE swelling, Pro BNP= 2660, CXR showing mild venous congestion .S mall pleural effusion .cardiomegaly. ECHO. EF= 6-65% Treatment: Lasix 60mg IVP daily Christoph Factors= HTN, CKD ,CAD Query created by: Patricia Acharya on 06/11/2018 4:41 PM Electronically signed by: Chiquita CORREA 06/21/2018 11:23 PM
[2018-06-22] MEDS: MethylPREDNISolone 40 mg Vial IVP SCH ×2 (06:47→14:24)
[2018-06-22 08:34] VITALS: PULSE 73; TEMP 98; O2SAT 96
[2018-06-22] MEDS: Cefepime IV 1 gm in Dextrose 1 GM/50 ML BAG IVPB SCH (09:57)
[2018-06-22] MEDS: Vitamin B Complex/Vitamin C Tab PO SCH (09:57)
[2018-06-22] MEDS: Pantoprazole 40 mg EC Tab PO SCH (09:57)
[2018-06-22 10:01] VITALS: BP 131/58
--- NOTE | 2018-06-22 13:42 | CP.PCM.PN ---
Subjective - Date & Time of Evaluation Date of Evaluation: 06/22/18 Time of Evaluation: 13:40 - Subjective Subjective: Pt is seen and examined No events overnight Awake and alert Objective - Vital Signs/Intake and Output Vital Signs (last 24 hours): Temp Pulse Resp BP Pulse Ox 98.0 F 73 20 131/58 L 96 06/22/18 08:33 06/22/18 08:33 06/22/18 08:33 06/22/18 09:59 06/22/18 08:33 - Medications Medications: Current Medications Alprazolam (Xanax) 0.5 mg PO HS [facility] Last Admin: 06/21/18 21:23 Dose: 0.5 mg Amlodipine Besylate (Norvasc) 5 mg PO DAILY [facility] Last Admin: 06/22/18 09:57 Dose: 5 mg Clopidogrel Bisulfate (Plavix) 75 mg PO DAILY [facility] Last Admin: 06/22/18 09:57 Dose: 75 mg Fluticasone/Vilanterol (Breo Ellipta 100-25 Mcg Inh) 1 puff INH RQ24 [facility] Furosemide (Lasix) 60 mg IVP DAILY [facility] Last Admin: 06/22/18 09:59 Dose: 60 mg Cefepime HCl (Maxipime Iv 1 Gm Premix) 1 gm in 50 mls @ 100 mls/hr IVPB Q12H [facility]; Protocol Last Admin: 06/22/18 09:57 Dose: 100 mls/hr Methylprednisolone (Solu-Medrol) 40 mg IVP Q8 [facility] Last Admin: 06/22/18 06:47 Dose: 40 mg Pantoprazole Sodium (Protonix Ec Tab) 40 mg PO DAILY [facility] Last Admin: 06/22/18 09:57 Dose: 40 mg Roflumilast (Daliresp) 500 mcg PO DAILY [facility] Last Admin: 06/22/18 09:57 Dose: 500 mcg Rosuvastatin Calcium (Crestor) 10 mg PO HS [facility] Last Admin: 06/21/18 21:23 Dose: 10 mg Tramadol HCl (Ultram) 50 mg PO TID PRN PRN Reason: Pain, moderate (4-7) Last Admin: 06/14/18 22:21 Dose: 50 mg Vitamin B Complex/Vitamin C (Berocca) 1 tab PO DAILY [facility] Last Admin: 06/22/18 09:57 Dose: 1 tab - Labs Labs: 06/19/18 10:58 06/20/18 07:17 PT 11.4 SECONDS (9.7-12.2) 06/10/18 12:06 INR 1.0 06/10/18 12:06 APTT 32 SECONDS (21-34) 06/10/18 12:06 - Head Exam Head Exam: NORMAL INSPECTION - Eye Exam Eye Exam: Normal appearance - ENT Exam ENT Exam: Mucous Membranes Moist - Respiratory Exam Respiratory Exam: Decreased Breath Sounds - Cardiovascular Exam Cardiovascular Exam: REGULAR RHYTHM, +S1, +S2 - GI/Abdominal Exam GI & Abdominal Exam: Soft, Normal Bowel Sounds - Extremities Exam Extremities Exam: Normal Inspection - Neurological Exam Neurological Exam: Alert, Awake Assessment and Plan (1) Acute exacerbation of CHF (congestive heart failure) Status: Acute (2) Dyspnea Status: Acute (3) Respiratory failure with hypoxia and hypercapnia Status: Acute (4) COPD (chronic obstructive pulmonary disease) Status: Chronic - Assessment and Plan (Free Text) Plan: D/c planning Bronchodilators O2 supplementation Continue Abx Taper Steroids Breo Ellipta DVT/GI prophalaxis
--- NOTE | 2018-06-22 13:45 | PCM.HF ---
Heart Failure Core Measure - Heart Failure Ejection Fraction: 40 % or Greater (EF 50%) MERLENE Inhibitor Prescribed: No Contraindication/Reason for not providing: renal insufficiency Beta-Latrice Prescribed: None Contraindication/Reason for not providing: COPD Angiotensin II Receptor Latrice Prescribed: No Contraindication/Reason for not providing: renal insufficiency AnticoagulationTherapy for Atrial Fibrillation/Atrialflutter: No Contraindication/Reason for not providing: no afib Aldosterone Antagonist Prescribed: No Contraindication/Reason for not providing: EF >40% Hydralazine Nitrate Prescribed: No Contraindication/Reason for not providing: EF >40% Implantable Cardioverter Defibrillator Therapy: Yes Cardiac Resynchronization Therapy Prescribed: No Contraindication/Reason for not providing: Not indicated - Follow up Will be discharged to: Home Follow Up Date (must be within 7 days from discharge): 06/26/18
--- NOTE | 2018-06-22 13:48 | CP.PCM.PN ---
Subjective - Date & Time of Evaluation Date of Evaluation: 06/22/18 Time of Evaluation: 11:00 - Subjective Subjective: awake, alert, follows commands, no acute distress. Objective - Vital Signs/Intake and Output Vital Signs (last 24 hours): Temp Pulse Resp BP Pulse Ox 98.0 F 73 20 131/58 L 96 06/22/18 08:33 06/22/18 08:33 06/22/18 08:33 06/22/18 09:59 06/22/18 08:33 - Medications Medications: Current Medications Alprazolam (Xanax) 0.5 mg PO HS [facility] Last Admin: 06/21/18 21:23 Dose: 0.5 mg Amlodipine Besylate (Norvasc) 5 mg PO DAILY [facility] Last Admin: 06/22/18 09:57 Dose: 5 mg Clopidogrel Bisulfate (Plavix) 75 mg PO DAILY [facility] Last Admin: 06/22/18 09:57 Dose: 75 mg Fluticasone/Vilanterol (Breo Ellipta 100-25 Mcg Inh) 1 puff INH RQ24 [facility] Furosemide (Lasix) 60 mg IVP DAILY [facility] Last Admin: 06/22/18 09:59 Dose: 60 mg Cefepime HCl (Maxipime Iv 1 Gm Premix) 1 gm in 50 mls @ 100 mls/hr IVPB Q12H [facility]; Protocol Last Admin: 06/22/18 09:57 Dose: 100 mls/hr Methylprednisolone (Solu-Medrol) 40 mg IVP Q8 [facility] Last Admin: 06/22/18 06:47 Dose: 40 mg Pantoprazole Sodium (Protonix Ec Tab) 40 mg PO DAILY [facility] Last Admin: 06/22/18 09:57 Dose: 40 mg Roflumilast (Daliresp) 500 mcg PO DAILY [facility] Last Admin: 06/22/18 09:57 Dose: 500 mcg Rosuvastatin Calcium (Crestor) 10 mg PO HS [facility] Last Admin: 06/21/18 21:23 Dose: 10 mg Tramadol HCl (Ultram) 50 mg PO TID PRN PRN Reason: Pain, moderate (4-7) Last Admin: 06/14/18 22:21 Dose: 50 mg Vitamin B Complex/Vitamin C (Berocca) 1 tab PO DAILY [facility] Last Admin: 06/22/18 09:57 Dose: 1 tab - Labs Labs: 06/19/18 10:58 06/20/18 07:17 PT 11.4 SECONDS (9.7-12.2) 06/10/18 12:06 INR 1.0 06/10/18 12:06 APTT 32 SECONDS (21-34) 06/10/18 12:06 Assessment and Plan - Assessment and Plan (Free Text) Assessment: 83 year old obese male admitted with CHF exacerbation, seen and examined. Alert and orientedx3, denies sob or chest pains. Discussed with DR Ray Maxwell, plan to discharge home today. All needed prescriptions given. Advised to follow up with PMD in 1 week.
== END 2018-06-22 15:27 | disposition home or self-care (01) | DRG 291 ==
LOC: C.ER 11:38 → C.9E 16:47 → C.6T 18:59
PROVIDERS: ADMIT Internal Medicine Nephrology; ATTEND Internal Medicine Nephrology
PROC: 0T9B70Z Drainage of Bladder with Drainage Device, Via Natural or Artificial Opening (ICD-10-PCS; 2018-06-10)
PROC: 4A033R1 Measurement of Arterial Saturation, Peripheral, Percutaneous Approach (ICD-10-PCS; 2018-06-10)
PROC: 5A09557 Assistance with Respiratory Ventilation, Greater than 96 Consecutive Hours, Continuous Positive Airway Pressure (ICD-10-PCS; principal; 2018-06-11)
DX: I13.0 Hypertensive heart and chronic kidney disease with heart failure and stage 1 through stage 4 chronic kidney disease, or unspecified chronic kidney disease (principal); G93.41 Metabolic encephalopathy; J96.02 Acute respiratory failure with hypercapnia; J96.01 Acute respiratory failure with hypoxia; I50.33 Acute on chronic diastolic (congestive) heart failure; J18.9 Pneumonia, unspecified organism; I25.3 Aneurysm of heart; I44.2 Atrioventricular block, complete; E87.3 Alkalosis; L97.929 Non-pressure chronic ulcer of unspecified part of left lower leg with unspecified severity; L03.116 Cellulitis of left lower limb; E87.2 Acidosis; E66.2 Morbid (severe) obesity with alveolar hypoventilation; Z68.41 Body mass index [BMI] 40.0-44.9, adult; G93.1 Anoxic brain damage, not elsewhere classified; I27.0 Primary pulmonary hypertension; L03.115 Cellulitis of right lower limb; J44.9 Chronic obstructive pulmonary disease, unspecified; N18.3 Chronic kidney disease, stage 3 (moderate); E78.00 Pure hypercholesterolemia, unspecified; Z95.5 Presence of coronary angioplasty implant and graft; Z95.0 Presence of cardiac pacemaker; Z87.891 Personal history of nicotine dependence; Z99.81 Dependence on supplemental oxygen; Z91.19 Patient's noncompliance with other medical treatment and regimen; I87.2 Venous insufficiency (chronic) (peripheral); H91.90 Unspecified hearing loss, unspecified ear; T50.2X5A Adverse effect of carbonic-anhydrase inhibitors, benzothiadiazides and other diuretics, initial encounter; I25.10 Atherosclerotic heart disease of native coronary artery without angina pectoris; R41.82 Altered mental status, unspecified; G62.9 Polyneuropathy, unspecified; I87.8 Other specified disorders of veins; R00.1 Bradycardia, unspecified; I27.81 Cor pulmonale (chronic); Z91.81 History of falling